=== PATIENT | male | born 1970 | race Caucasian/White ===

== ENCOUNTER 2024-05-01 14:30 | Emergency (ER) | payer SELFPAY ==
[2024-05-01 14:30] VITALS: BP 112/69; PULSE 113; RESP 16; TEMP 36.8; O2SAT 92; BMI 29.2
--- NOTE | 2024-05-01 14:36 | CTR_ITS ---
PROCEDURE INFORMATION: Exam: CT Abdomen And Pelvis With Contrast Exam date and time: 05/01/2024 3:38 PM Age: 54 years old Clinical indication: Abdominal pain; Additional info: Abd pain TECHNIQUE: Imaging protocol: Computed tomography of the abdomen and pelvis with contrast. Radiation optimization: All CT scans at this facility use at least one of these dose optimization techniques: automated exposure control; mA and/or kV adjustment per patient size (includes targeted exams where dose is matched to clinical indication); or iterative reconstruction. Contrast material: OMNI 350; Contrast volume: 100 ml; Contrast route: INTRAVENOUS (IV); COMPARISON: No relevant prior studies available. RADIATION DOSE METRICS: Total DLP (mGy-cm): 1041 FINDINGS: Tubes, catheters and devices: Spontaneous splenorenal shunt. Lungs: Left lower lobe calcified pulmonary parenchymal granulomas. Bilateral lower lobe and lingular pulmonary partial atelectasis. Pleural spaces: Moderately large dependent left pleural effusion. Liver: There is a nodular contour to the liver and hypertrophy of the left lobe lateral segment and caudate lobe, consistent with hepatic cirrhosis. No mass. Gallbladder and biliary ducts: The gallbladder transverse lumen measures 4.7 cm. Dependent low-attenuation numerous small gallstones (series 3, image 42), no wall thickening. Pancreas: Normal. No ductal dilation. Spleen: Normal. No splenomegaly. Adrenal glands: Normal. No mass. Kidneys and ureters: Right renal 5.7 mm benign cyst. Stomach and bowel: Diffuse mild colonic wall thickening. Appendix: No evidence of appendicitis. Intraperitoneal space: Large volume abdominal and pelvic ascites. No pneumoperitoneum. Omental and mesenteric adipose edema consistent with venous congestion. Vasculature: Distal paraesophageal varices, largest measuring 6.4 mm. Lymph nodes: Left hilar granulomatous sofi calcifications are present. Urinary bladder: The urinary bladder is partially decompressed and somewhat difficult to assess. Reproductive: The prostate gland demonstrates left central parenchymal calcification. Bones/joints: T11-L1 fusion with a left lateral plate and T12 vertebral body replacement. Anterior bridging left sacroiliac joint marginal osteophytes. Soft tissues: Small right inguinal hernia containing only peritoneal fluid. CT/CT abdomen pelvis w con* [id number] IMPRESSION: 1. Large volume abdominal and pelvic ascites. 2. Hepatic cirrhosis with evidence of portal venous hypertension. 3. Spontaneous splenorenal shunt. 4. Cholelithiasis and gallbladder luminal distension. Clinical correlation with the patient's specific symptomatology is recommended. 5. Diffuse mild colonic wall thickening. The finding is consistent with mild nonspecific colitis. Clinical correlation with the patient's specific symptomatology is recommended. Consider hepatic enteropathy. 6. Right renal small benign cyst. No follow-up imaging is recommended. 7. Chronic calcific prostatitis. 8. Moderately large dependent left pleural effusion. COMMENTS: Consistent with the [employer]'s Incidental Findings Committee white paper (J Am Soto Radiol 2018): Any incidental renal lesion less than 1 cm or classified as too small to characterize, or any incidental cystic renal lesion characterized as simple-appearing, is likely benign. No follow-up imaging is recommended for these lesions per consensus recommendations based on imaging criteria.
--- NOTE | 2024-05-01 14:44 | ED_ITS ---
HPI - Abdominal Pain 2 General: Chief Complaint: Abdominal Pain Stated Complaint: abdominal pain Time Seen by Provider: 05/01/24 14:32 Source: patient Mode of arrival: ambulatory Limitations: no limitations History of Present Illness: 54-year-old male has a history of cirrho sis states he is admitted to [place] recently he has a history alcoholism states he has been having some increased abdominal pain. States pain is diffuse in nature denies any vomiting denies any diarrhea he denies any fevers patient is never been seen here at this facility in the past. He is quite jaundiced here Associated Symptoms: Denies chills, diarrhea, fever(s), nausea and vomiting Related Data Previous Rx's Medication Instructions Recorded hydrocodone 5 mg-acetaminophen 325 1 tab PO Q6H PRN pain #14 tabs 05/01/24 mg tablet ondansetron 4 mg disintegrating 4 mg PO Q6H PRN nausea and 05/01/24 tablet vomiting #14 tabs Allergies Allergy/AdvReac Type Severity Reaction Status Date / Time meperidine [From Demerol] Allergy ALGY-Anaphy Verified 05/01/24 14:36 laxis Review of Systems 2 Const: Denies: fever(s), chills, body aches or change in appetite ENMT: Denies: throat pain or dental pain Card: Denies: chest pain Resp: Denies: dyspnea GI: Reports: abdominal pain; Denies: nausea, vomiting or diarrhea Musc: Denies: neck pain or back pain Skin/Breast: Denies: rash Neuro: Denies: headache(s) Physical Exam 2 Const: COMMON NORMALS: patient oriented x3 HENMT: COMMON NORMALS: normocephalic and atraumatic HEAD & SCALP: n ormocephalic and atraumatic Eye: COMMON NORMALS: Equal, round and reactive pupils present and EOMs intact bilaterally PUPIL: Yes Equal, round and reactive pupils present Neck/C-Spine: COMMON NORMALS: full ROM and supple Chest: COMMONS NORMALS: normal inspection of the chest and normal palpation of entire chest wall Resp: COMMON NORMALS: normal respiratory effort, No retractions, No use of accessory muscles and clear to auscultation bilaterally AUSCULTATION: clear to auscultation bilaterally Cardio: COMMON NORMALS: regular rate, regular rhythm and No murmurs present (Cardio) RATE: regular rate RHYTHM: regular rhythm GI: COMMON NORMALS: Soft to palpation and no masses PALPATION: Yes Soft to palpation OTHER: abdomen distended Extremity: COMMON NORMALS: normal to inspection and full ROM Neuro: COMMON NORMALS: patient oriented x3, moves all extremities and no focal motor deficits Psych: COMMON NORMALS: mental status grossly normal, Normal thought process present and cooperative THOUGHT PROCESS: Normal thought process present Skin: COMMON NORMALS: no rashes or lesions noted and no wounds NARRATIVE SKIN EXAM: jaundiced GENERAL SKIN EXAM: no rashes or lesions noted Course 2 Vital Signs: Vital signs: Vital Signs Temperature 98.3 F 05/01/24 14:30 Pulse Rate 109 H 05/01/24 18:50 Respiratory Rate 12 05/01/24 18:28 Blood Pressure 102/71 05/01/24 18:50 Pulse Oximetry 90 05/01/24 18:50 Oxygen Delivery Me thod Room Air 05/01/24 18:00 MDM - Abdominal Pain Medical Decision Making Patient presents here with abdominal pain he has severe cirrhosis of the liver likely end-stage liver disease I did get his records from [facility] where he had a MELD score of 32 I had a long discussion with patient and informed him of what they had informed him there as well the gravity of his disease and his likely 90-day mortality rate. I did offer him admission or transfer back to [facility] he states that he does not want to be in the hospital any longer he does not want any treatment he wants to just go home and be with his he understands the gravity of his disease with likely only months to live and had medical decision made capacity want to be discharged did discharge him home informed him should follow-up with a PCP if he changes his mind he is to return to the ER did speak to him about hospice as well and offered that he states he does not want to be on hospice at this time he just wants to go home and speak to his Medical Records I reviewed the patient's medical records. Lab Data I reviewed the patient's lab results. 05/01/24 15:15 05/01/24 15:15 Labs/Radiology: Radiology Impressions Abdomen/Pelvis CT 05/01/24 14:36 IMPRESSION: 1. Large volume abdominal and pelvic ascites. 2. Hepatic cirrhosis with evidence of portal venous hypertension. 3. Spontaneous splenorenal shunt. 4. Cholelithiasis and gallbladder luminal distension. Clinical correlation with the patient's specific symptomatology is recommended. 5. Diffuse mild colonic wall thickening. The finding is consistent with mild nonspecific colitis. Clinical correlation with the patient's specific symptomatology is recommended. Consider hepatic enteropathy. 6. Right renal small benign cyst. No follow-up imaging is recommended. 7. Chronic calcific prostatitis. 8. Moderately large dependent left pleural effusion. COMMENTS: Consistent with the [employer]'s Incidental Findings Committee white paper (J Am Soto Radiol 2018): Any incidental renal lesion less than 1 cm or classified as too small to characterize, or any incidental cystic renal lesion characterized as simple-appearing, is likely benign. No follow-up imaging is recommended for these lesions per consensus recommendations based on imaging criteria. Laboratory Results WBC 6.79 10^3/uL (3.29-11.43) 05/01/24 15:15 RBC 3.49 10^6/uL (3.85-5.65) L 05/01/24 15:15 Hgb 12.30 g/dL (11.27-16.99) 05/01/24 15:15 Hct 35.4 % (37-53) L 05/01/24 15:15 MCV 101.4 fl (82-101) H 05/01/24 15:15 MCH 35.2 pg (27-33) H 05/01/24 15:15 MCHC 34.7 g/dL (30-55) 05/01/24 15:15 RDW 17.3 % (12.1-15.1) H 05/01/24 15:15 Plt Count 106 10^3/cmm (157-399) L 05/01/24 15:15 MPV 13.0 fL (7.4-10.4) H 05/01/24 15:15 Neut % (Auto) 90.7 % 05/01/24 15:15 Lymph % (Auto) 5.2 % 05/01/24 15:15 Tate % (Auto) 3.1 % 05/01/24 15:15 Eos % (Auto) 0.1 % 05/01/24 15:15 Baso % (Auto) 0.3 % 05/01/24 15:15 Neut # (Auto) 6.16 10^3/uL (1.8-7.7) 05/01/24 15:15 Lymph # (Auto) 0.4 10^3/uL (0.8-4.8) L 05/01/24 15:15 Tate # (Auto) 0.2 10^3/uL (0.2-0.9) 05/01/24 15:15 Eos # (Auto) 0.0 10^3/uL (0.0-0.8) 05/01/24 15:15 Baso # (Auto) 0.0 10^3/uL (0.0-0.1) 05/01/24 15:15 Nucleated RBC % (auto) 0.3 % 05/01/24 15:15 Nucleated RBCs # 0.0 /100WBC 05/01/24 15:15 PT 23.10 SECONDS (12.1-14.9) H 05/01/24 15:15 INR 1.96 (0.8-1.2) H 05/01/24 15:15 Sodium 125 mmol/L (136-145) L 05/01/24 15:15 Potassium 4.1 mmol/L (3.5-5.1) 05/01/24 15:15 Chloride 88 mmol/L (98-107) L 05/01/24 15:15 Carbon Dioxide 23 mmol/L (22-29) 05/01/24 15:15 Anion Gap 18.1 (5-19) 05/01/24 15:15 BUN 18 mg/dL (6-20) 05/01/24 15:15 Creatinine 0.8 mg/dL (0.7-1.2) 05/01/24 15:15 GFR Calculation 100.4 mL/min (90-130) 05/01/24 15:15 Glucose 123 mg/dL (65-115) H 05/01/24 15:15 Calculated Osmolality 263 mOsm/kg (285-295) L 05/01/24 15:15 Calcium 7.7 mg/dL (8.5-10.5) L 05/01/24 15:15 Total Bilirubin 12.5 mg/dL (0.15-1.2) H* 05/01/24 15:15 AST 197 U/L (0-40) H 05/01/24 15:15 ALT 115 U/L (0-41) H 05/01/24 15:15 Alkaline Phosphatase 110 U/L (40-130) 05/01/24 15:15 Total Protein 7.3 g/dL (6.6-8.7) 05/01/24 15:15 Albumin 2.2 g/dL (3.5-5.2) L 05/01/24 15:15 Globulin 5.1 g/dL (1.3-4.6) H 05/01/24 15:15 Lipase 38 U/L (13-60) 05/01/24 15:15 Ethyl Alcohol < 10 mg/dL (0-10) 05/01/24 15:15 All radiology interpretation(s) finalized by discharge EKG Data EKG 1: I personally reviewed and interpreted this EKG as follows: EKG interpretation date: 05/01/24 EKG interpretation time: 14:28 Interpretation: sinus tach hr 113 qrs 97 qtc 427 Discharge Plan Discharge Patient Disposition: Home Clinical Impression: Abdominal pain, Cirrhosis Condition: Stable Prescriptions: New hydrocodone-acetaminophen 5-325 mg tablet 1 tab PO Q6H PRN (Reason: pain) Qty: 14 0RF ondansetron 4 mg tablet,disintegrating 4 mg PO Q6H PRN (Reason: nausea and vomiting) Qty: 14 0RF Discharge Orders: Discharge ED (Routine); Ordered 05/01/24 Ordered By: Alf Reeves Referrals: Beni Kidd MD [Primary Care Provider] - Discharge Diet: Advance as tolerated Discharge Activity: Resume usual activity Patient Instructions: Cirrhosis of the Liver (ED), Abdominal Pain (ED) Coding Level of Care Code ED Spinner [employer]draulic for Cjg Fredy
[2024-05-01] MEDS: ondansetron 2 mg/ML SDV 2 mL 4 MG IVP (15:18)
[2024-05-01] MEDS: HYDROmorphone 1 mg/mL INJ 1 mL IVP (15:18)
[2024-05-01 15:27] LABS: Basophils % 0.3 %; Eosinophils % 0.1 %; Hematocrit 35.4 % (37-53); Lymphocytes # 0.4 10^3/uL (0.8-4.8); Lymphocytes % 5.2 %; Mean Corpuscular HGB Conc 34.7 g/dL (30-55); Mean Corpuscular Hemoglobin 35.2 pg (27-33); Mean Corpuscular Volume 101.4 fl (82-101); Monocytes # 0.2 10^3/uL (0.2-0.9); Monocytes % 3.1 %; Neutrophils # 6.16 10^3/uL (1.8-7.7); Neutrophils % 90.7 %; Nucleated Red Blood Cells % 0.3 %; Platelet Count 106 10^3/cmm (157-399); Red Blood Count 3.49 10^6/uL (3.85-5.65); Red Cell Distribution Width 17.3 % (12.1-15.1); White Blood Count 6.79 10^3/uL (3.29-11.43)
--- NOTE | 2024-05-01 15:29 | ECG_ITS ---
[facility] Test Date: 2024-05-01 Pat Name: Donte Saini Department: Room: Gender: Male Police Chief Deputy: : 1970 Requested By: Alf Reeves Order Number: [id number] Shanna MD: Lino Ayon M.D. Measurements Intervals [place] Rate: 113 P: 26 HI: 146 QRS: -21 QRSD: 97 T: 34 QT: 360 QTc: 494 Interpretive Statements SINUS TACHYCARDIA POSSIBLE ANTERIOR MYOCARDIAL INFARCTION , PROBABLY OLD [30 ms Q WAVE IN V3/V4, OR R < 0.2 mV IN V4] Compared to ECG 03/14/2019 16:08:32 Myocardial infarct finding now present Sinus rhythm no longer present Left-axis deviation no longer present Intraventricular conduction delay no longer present Electronically Signed On 05-01-2024 16:23:46 CDT by Lino Ayon M.D. [id number] f
[2024-05-01 15:38] LABS: INR 1.96 (0.8-1.2)
[2024-05-01] MEDS: iohexol 350 mg/mL 500 mL Btl (per mL) IV (15:41)
[2024-05-01 15:42] LABS: Alanine Aminotransferase 115 U/L (0-41); Albumin Level 2.2 g/dL (3.5-5.2); Alkaline Phosphatase 110 U/L (40-130); Anion Gap 18.1 (5-19); Aspartate Amino Transferase 197 U/L (0-40); Blood Urea Nitrogen 18 mg/dL (6-20); Calcium 7.7 mg/dL (8.5-10.5); Carbon Dioxide 23 mmol/L (22-29); Chloride 88 mmol/L (98-107); Creatinine Clr Calc Pharmacy 108.5946; Globulin 5.1 g/dL (1.3-4.6); Glomerular Filtration Rate 100.4 mL/min (90-130); Glucose 123 mg/dL (65-115); Lipase 38 U/L (13-60); Osmolality Calculated 263 mOsm/kg (285-295); Potassium 4.1 mmol/L (3.5-5.1); Sodium 125 mmol/L (136-145); Total Protein 7.3 g/dL (6.6-8.7)
[2024-05-01 15:44] LABS: Alcohol Level < 10 mg/dL (0-10); Total Bilirubin 12.5 mg/dL (0.15-1.2)
[2024-05-01 16:25] VITALS: BP 112/69; PULSE 113; RESP 18; O2SAT 92
[2024-05-01 17:01] VITALS: BP 92/75; PULSE 112; RESP 17; O2SAT 83
[2024-05-01 18:00] VITALS: BP 92/60; PULSE 89; RESP 18; O2SAT 89
[2024-05-01 18:28] VITALS: BP 86/67; PULSE 110; RESP 12
[2024-05-01 18:50] VITALS: BP 102/71; PULSE 109; O2SAT 90
== END 2024-05-01 18:53 | disposition home or self-care (01) ==
PROVIDERS: Emergency Provider Emergency Medicine; PCP Family Medicine
DX: K74.60 Unspecified cirrhosis of liver (principal)
CPT/HCPCS: 74177; 80053; 80307; 83690; 85025; 85610; 93005; 96374; 96375; 99285; J1170; J2405

== ENCOUNTER 2024-05-03 14:31 | Inpatient (IN) | payer SELFPAY ==
[2024-05-03] VITALS (20 sets, daily range): BP systolic 90–116; BP diastolic 44–76; PULSE 94–113; RESP 13–22; TEMP 36.8; O2SAT 90–97; BMI 27.3; BMI 24.1
--- NOTE | 2024-05-03 14:44 | ED_ITS ---
HPI - Abdominal Pain 2 General: Chief Complaint: Abdominal Pain Stated Complaint: abd pain, n, liver failure Time Seen by Provider: 05/03/24 14:44 History of Present Illness: 54-year-old male with end-stage liver di dada due to alcoholic liver cirrhosis. He was seen earlier this week and a MELD score of 32 after discussion with physician at that time they opted to go home he did not want to be on hospice but did not want to pursue any other treatment. He is still drinking. Patient is unable to even reposition himself in bed he is extremely jaundiced. He was seen 2 days ago those notes were reviewed. No course of discussion with him was able to discern that his is 29 years old with him and age 83 has pretty significant severe dementia and he has been the main caregiver he is unable to perform any of those duties given his health at this point. He was previously seen at [facility] in [place] had paracentesis done. At this point he does not really want to go back to [place] he was offered that 2 days ago when he was here he is open to hospice now. Associated Symptoms: Reports nausea; Denies chills, dysuria and fever(s) Related Data Previous Rx's Medication Instructions Recorded hydrocodone 5 mg-acetaminophen 325 1 tab PO Q6H PRN pain #14 tabs 05/01/24 mg tablet ondansetron 4 mg disintegrating 4 mg PO Q6H PRN nausea and 05/01/24 tablet vomiting #14 tabs Allergies Allergy/AdvReac Type Severity Reaction Status Date / Time meperidine [From Demerol] Allergy ALGY-Anaphy Verified 05/01/24 14:36 laxis Review of Systems 2 Const: Denies: fever(s) or chills Card: Denies: chest pain Resp: Denies: dyspnea GI: Reports: abdominal pain and nausea : Denies: dysuria, urinary frequency or urinary urgency Musc: Denies: neck pain or back pain Skin/Breast: Denies: rash PFSH ED 2 PFSH: Medical History Cirrhosis Physical Exam 2 Const: GENERAL APPEARANCE: cooperative ORIENTATION/CONSCIOUSNESS: Yes awake, Yes oriented to person, Yes oriented to place and Yes oriented to time HENMT: COMMON NORMALS: normocephalic, atraumatic and hearing grossly normal bilaterally HEAD & SCALP: normocephalic and atraumatic Resp: COMMON NORMALS: normal respiratory effort, No retractions, No use of accessory muscles and clear to auscultation bilaterally AUSCULTATION: clear to auscultation bilaterally Cardio: COMMON NORMALS: regular rate, regular rhythm and No murmurs present (Cardio) RATE: regular rate RHYTHM: regular rhythm GI: COMMON NORMALS: No hepatosplenomegaly present INSPECTION: Yes abdominal distension and Yes Fluid wave present AUSCULTATION: Yes normoactive bowel sounds PALPATION: Yes Tenderness to palpation present (GI), No Guarding due to palpation present (GI), Yes No hepatosplenomegaly present and Yes Hepatomegaly present PERCUSSION: Fluid wave present Extremity: COMMON NORMALS: normal to inspection, capillary refill normal, no clubbing, cyanosis or edema, no calf tenderness and no pedal edema Neuro: SENSORIUM/ORIENTATION: Yes oriented to person, Yes oriented to place and Yes oriented to time Skin: COMMON NORMALS: no rashes or lesions noted GENERAL SKIN EXAM: no rashes or lesions noted Course 2 Vital Signs: Vital signs: Vital Signs Temperature 98.2 F 05/05/24 03:19 Pulse Rate 0 L 05/05/24 12:00 Respiratory Rate 18 05/05/24 12:00 Blood Pressure 133/94 05/05/24 12:00 Pulse Oximetry 93 05/05/24 08:21 Oxygen Delivery Me thod Nasal Cannula 05/05/24 08:21 Oxygen Flow Rate 2 05/05/24 08:21 MDM - Abdominal Pain Medical Decision Making Patient has end-stage liver failure his MELD score is greater than 30. At this point he does not wish to pursue any treatment. He is preferring instead to be on hospice for having some logistical issues because he does not have insurance we will put him on observation for now to see if we can pursue other options. His lives at home is significantly older than him and he is the main caregiver hotline report was made to make sure that she was cared for tonight. Lab Data 05/05/24 03:14 05/05/24 03:14 Labs/Radiology: Radiology Impressions Paracentesis Ultrasound 05/03/24 15:14 IMPRESSION: Uncomplicated ultrasound-guided paracentesis. Removal of 7500 cc Chest X-Ray 05/04/24 12:03 IMPRESSION: 1. Right-sided PICC line in satisfactory position. 2. Atelectasis and/or infiltrate in the LEFT lower lobe and small LEFT basal pleural effusion. Laboratory Results WBC 14.44 10^3/uL (3.29-11.43) H 05/03/24 18:45 RBC 3.05 10^6/uL (3.85-5.65) L 05/03/24 18:45 Hgb 10.90 g/dL (11.27-16.99) L 05/03/24 18:45 Hct 31.4 % (37-53) L 05/03/24 18:45 MCV 103.0 fl (82-101) H 05/03/24 18:45 MCH 35.7 pg (27-33) H 05/03/24 18:45 MCHC 34.7 g/dL (30-55) 05/03/24 18:45 RDW 17.8 % (12.1-15.1) H 05/03/24 18:45 Plt Count 82 10^3/cmm (157-399) L 05/03/24 18:45 MPV 12.6 fL (7.4-10.4) H 05/03/24 18:45 Neut % (Auto) 88.0 % 05/03/24 18:45 Lymph % (Auto) 4.3 % 05/03/24 18:45 Nicholas % (Auto) 6.2 % 05/03/24 18:45 Eos % (Auto) 0.0 % 05/03/24 18:45 Baso % (Auto) 0.2 % 05/03/24 18:45 Neut # (Auto) 12.71 10^3/uL (1.8-7.7) H 05/03/24 18:45 Lymph # (Auto) 0.6 10^3/uL (0.8-4.8) L 05/03/24 18:45 Nicholas # (Auto) 0.9 10^3/uL (0.2-0.9) 05/03/24 18:45 Eos # (Auto) 0.0 10^3/uL (0.0-0.8) 05/03/24 18:45 Baso # (Auto) 0.0 10^3/uL (0.0-0.1) 05/03/24 18:45 Nucleated RBC % (auto) 0 % 05/03/24 18:45 Nucleated RBCs # 0.0 /100WBC 05/03/24 18:45 PT 25.20 SECONDS (12.1-14.9) H 05/03/24 18:45 INR 2.19 (0.8-1.2) H 05/03/24 18:45 D-Dimer 12.85 ug/mLFEU (0-0.59) H 05/03/24 18:45 Sodium 119 mmol/L (136-145) L* 05/03/24 18:45 Potassium 6.1 mmol/L (3.5-5.1) H 05/03/24 18:45 Chloride 85 mmol/L (98-107) L 05/03/24 18:45 Carbon Dioxide 20 mmol/L (22-29) L 05/03/24 18:45 Anion Gap 20.1 (5-19) H 05/03/24 18:45 BUN 42 mg/dL (6-20) H 05/03/24 18:45 Creatinine 2.3 mg/dL (0.7-1.2) H 05/03/24 18:45 GFR Calculation 29.7 mL/min (90-130) L 05/03/24 18:45 Glucose 117 mg/dL (65-115) H 05/03/24 18:45 Calculated Osmolality 260 mOsm/kg (285-295) L 05/03/24 18:45 Lactic Acid 2.4 mmol/L (0.5-2.2) H 05/03/24 18:45 Calcium 7.2 mg/dL (8.5-10.5) L 05/03/24 18:45 Iron 28 ug/dL (59-158) L 05/03/24 18:45 TIBC 100 mcg/dl 05/03/24 18:45 % Saturation 28.0 % (20-50) 05/03/24 18:45 Unsat Iron Binding 72 ug/dL (112-347) L 05/03/24 18:45 Total Bilirubin 10.0 mg/dL (0.15-1.2) H* 05/03/24 18:45 AST 147 U/L (0-40) H 05/03/24 18:45 ALT 98 U/L (0-41) H 05/03/24 18:45 Alkaline Phosphatase 98 U/L (40-130) 05/03/24 18:45 Ammonia 84 umol/L (16-60) H 05/03/24 18:45 Total Protein 7.0 g/dL (6.6-8.7) 05/03/24 18:45 Albumin 1.9 g/dL (3.5-5.2) L 05/03/24 18:45 Globulin 5.1 g/dL (1.3-4.6) H 05/03/24 18:45 Lipase 32 U/L (13-60) 05/03/24 18:45 Vitamin B12 > 2000 pg/mL (232-1245) H 05/03/24 18:45 Urine Opiates Screen Negative ng/mL (Negative) 05/03/24 15:00 Ur Barbiturates Screen Negative ng/mL (Negative) 05/03/24 15:00 Ur Phencyclidine Scrn Negative ng/mL (Negative) 05/03/24 15:00 Ur Amphetamines Screen Negative ng/mL (Negative) 05/03/24 15:00 U Benzodiazepines Scrn Negative ng/mL (Negative) 05/03/24 15:00 Urine Cocaine Screen Negative ng/mL (Negative) 05/03/24 15:00 U Marijuana (THC) Screen Negative ng/mL (Negative) 05/03/24 15:00 Ethyl Alcohol < 10 mg/dL (0-10) 05/03/24 18:45 Coronavirus (PCR) Negative (Negative) 05/03/24 15:40 Influenza A (PCR) Negative (Negative) 05/03/24 15:40 Influenza Type B (PCR) Negative (Negative) 05/03/24 15:40 RSV (PCR) Negative (Negative) 05/03/24 15:40 All radiology interpretation(s) finalized by discharge Discharge Plan Discharge Patient Disposition: Admitted As Inpatient Admit Provider: Fortino Moscoso Clinical Impression: Cirrhosis, Hepatorenal syndrome, Hyperkalemia, Acute kidney failure, Ascites, Hepatic encephalopathy, Hyponatremia Condition: Stable Coding Level of Care Code ED Director Volunteer Services for Jaime Daniel
--- NOTE | 2024-05-03 14:45 | ECG_ITS ---
[facility] Test Date: 2024-05-03 Pat Name: Donte Saini Department: Room: Gender: Male Membership Solicitor: : 1970 Requested By: Mc Pollack Order Number: [id number] Shanna MD: Lino Ayon M.D. Measurements Intervals [place] Rate: 108 P: 19 TN: 160 QRS: -33 QRSD: 105 T: 13 QT: 339 QTc: 456 Interpretive Statements SINUS TACHYCARDIA LEFT AXIS DEVIATION [QRS AXIS < -30] POSSIBLE ANTERIOR MYOCARDIAL INFARCTION , PROBABLY OLD [30 ms Q WAVE IN V3/V4, OR R < 0.2 mV IN V4] Compared to ECG 05/01/2024 14:28:51 Left-axis deviation now present Myocardial infarct finding still present Electronically Signed On 05-03-2024 18:14:00 CDT by Lino Ayon M.D. [id number]
--- NOTE | 2024-05-03 14:45 | XR_ITS ---
WS: [id number] Exam: XR chest 1V portable [id number] Date/Time of Exam: 05/03/2024 2:51 PM Reason For Exam: dyspnea/cough Comparison 07/29/2017. The lungs are clear. Heart size is normal. No pleural effusions. Low lung volumes secondary to limite d inspiration. Bony structures are intact. Hardware seen in the upper L-spine. The mediastinum is nor mal in contour. XR/XR chest 1V portable [id number] IMPRESSION: 1. No acute process. 2. Low lung volumes secondary to limited inspiration.
--- NOTE | 2024-05-03 15:14 | US_ITS ---
WS: [id number] ULTRASOUND-GUIDED PARACENTESIS CLINICAL INFORMATION: cirrhosis, therapuetic COMPARISON: None. Procedure Informed consent: The risks, benefits, and alternatives of the procedure were discussed with the ramsey ent. Verbal and written consent was obtained. Timeout: A timeout was performed to confirm the correct patient, procedure, and site. Preparation: A suitable skin site was identified. The patient was prepped and draped in usual sterile fashion. Lidocaine 1% was used for local anesthesia. Catheter: 4 [place] One-step Routezillaeh catheter. Side: LEFT lower quadrant. Fluid Volume: 7500 ml Color: Clear yellow DISPOSITION: Discarded safely. Complications: None. US/US paracentesis abd w [id number] IMPRESSION: Uncomplicated ultrasound-guided paracentesis. Removal of 7500 cc
[2024-05-03] MEDS: metoclopramide 5 mg/mL SDV 2 mL 10 MG IVP (15:48)
[2024-05-03] MEDS: morphine 4 mg/mL SDV 1 mL IVP (15:49)
[2024-05-03 16:32] LABS: Covid PCR NEGATIVE (Negative); Influenza A NEGATIVE (Negative); Influenza B NEGATIVE (Negative); Respiratory Syncytial Virus Ce NEGATIVE (Negative)
--- NOTE | 2024-05-03 17:07 | PC.NURSE ---
pt had 7,500 out with paracentisis.
[2024-05-03 18:58] LABS: Basophils % 0.2 %; Hematocrit 31.4 % (37-53); Lymphocytes # 0.6 10^3/uL (0.8-4.8); Lymphocytes % 4.3 %; Mean Corpuscular HGB Conc 34.7 g/dL (30-55); Mean Corpuscular Hemoglobin 35.7 pg (27-33); Mean Platelet Volume 12.6 fL (7.4-10.4); Monocytes # 0.9 10^3/uL (0.2-0.9); Monocytes % 6.2 %; Neutrophils # 12.71 10^3/uL (1.8-7.7); Nucleated Red Blood Cells % 0 %; Platelet Count 82 10^3/cmm (157-399); Red Blood Count 3.05 10^6/uL (3.85-5.65); Red Cell Distribution Width 17.8 % (12.1-15.1); White Blood Count 14.44 10^3/uL (3.29-11.43)
[2024-05-03 19:18] LABS: INR 2.19 (0.8-1.2)
[2024-05-03 19:22] LABS: Albumin Level 1.9 g/dL (3.5-5.2); Alkaline Phosphatase 98 U/L (40-130); Blood Urea Nitrogen 42 mg/dL (6-20); Calcium 7.2 mg/dL (8.5-10.5); Carbon Dioxide 20 mmol/L (22-29); Chloride 85 mmol/L (98-107); Creatinine Clr Calc Pharmacy 36.6545; Globulin 5.1 g/dL (1.3-4.6); Glomerular Filtration Rate 29.7 mL/min (90-130); Glucose 117 mg/dL (65-115); Lactic Sepsis W/Reflex 2.4 mmol/L (0.5-2.2); Lipase 32 U/L (13-60); Osmolality Calculated 260 mOsm/kg (285-295)
[2024-05-03 19:24] LABS: Iron 28 ug/dL (59-158)
[2024-05-03 19:29] LABS: Alanine Aminotransferase 98 U/L (0-41); Alcohol Level < 10 mg/dL (0-10); Anion Gap 20.1 (5-19); Aspartate Amino Transferase 147 U/L (0-40); Potassium 6.1 mmol/L (3.5-5.1)
[2024-05-03 19:34] LABS: Sodium 119 mmol/L (136-145)
[2024-05-03 19:35] LABS: D Dimer 12.85 ug/mLFEU (0-0.59); Total Iron Binding Capacity 100 mcg/dl; Unsaturated Iron Binding 72 ug/dL (112-347)
[2024-05-03 19:38] LABS: Ammonia 84 umol/L (16-60)
[2024-05-03 20:03] LABS: Vitamin B12 > 2000 pg/mL (232-1245)
[2024-05-03 20:09] LABS: Amphetamines Screen Urine Negative (Negative); Barbiturates Screen Urine Negative (Negative); Benzodiazepines Screen Urine Negative (Negative); Cocaine Screen Urine Negative (Negative); Opiate Screen Urine Negative (Negative); PCP Screen Urine Negative (Negative); THC Screen Urine Negative (Negative)
[2024-05-03 20:42] LABS: Reflex Lactate Order REFLEX LACTIC ORDERD
[2024-05-03] MEDS: albumin 25 G/100 ML BAG 60 G IV (20:43)
[2024-05-03] MEDS: octreotide 500 MCG in sodium chloride 0.9% (100 ml) 100 ML 10.1 MCG IV (20:48)
[2024-05-03 20:49] LABS: Reflex FDPQ test REFLEX FDP QUEST TES
--- NOTE | 2024-05-03 20:52 | PC.NURSE ---
Dr. Moscoso called, aware of lab crit of Na+ Bili, and K+. Dr. Moscoso states to hold on PICC line at this time, estb another IV, pt has bilat IVs one to left and one to right.
[2024-05-03 21:07] LABS: INR 2.42 (0.8-1.2)
[2024-05-03 21:08] LABS: Partial Thromboplastin Time 44.8 SECONDS (23.9-36.7)
[2024-05-03 21:09] LABS: Fibrinogen 260 mg/dL (174-498)
[2024-05-03 21:10] LABS: Anion Gap 16.3 (5-19); Blood Urea Nitrogen 43 mg/dL (6-20); Calcium 6.9 mg/dL (8.5-10.5); Carbon Dioxide 24 mmol/L (22-29); Chloride 84 mmol/L (98-107); Creatinine Clr Calc Pharmacy 33.7221; Glomerular Filtration Rate 26.9 mL/min (90-130); Glucose 178 mg/dL (65-115); Lactic Acid level (Lactate) 2.8 mmol/L (0.5-2.2); Osmolality Calculated 263 mOsm/kg (285-295); Potassium 5.3 mmol/L (3.5-5.1)
[2024-05-03 21:17] LABS: Sodium 119 mmol/L (136-145)
[2024-05-03 21:18] LABS: D Dimer 12.65 ug/mLFEU (0-0.59)
[2024-05-03] MEDS: insulin regular-human 100 units/1 mL 10 UNIT IVP (21:25)
[2024-05-03] MEDS: calcium gluconate 0.9% NaCL 1 GM/50 ML PREMIX IV (21:46)
--- NOTE | 2024-05-03 21:56 | PC.NURSE ---
called to give report to ICU, was told ICU nurse taking pt would call back. 5.
--- NOTE | 2024-05-03 21:57 | PC.NURSE ---
sample of paracentisis fluid collected and taken to lab.
[2024-05-03] MEDS: piperacillin-tazobactam 3.375 GM in sodium chloride 0.9% (plus) 50 ML IV (22:19)
[2024-05-03] MEDS: pantoprazole 40 mg SDV IVP (23:17)
[2024-05-03] MEDS: midodrine 5 mg TABLET PO (23:18)
[2024-05-03 23:36] LABS: Thyroid Stimulating Hormone 1.08 uIU/mL (0.27-4.20)
[2024-05-03 23:39] LABS: Bilirubin Urine 3+ (Negative); Blood Urine Negative (Negative); Glucose Urine UA Negative (Normal); Ketones Urine Negative (Negative); Leukocyte Esterase Urine 2+ (Negative); Protein Urine 1+ (Negative); Urine Appearance Cloudy (CLEAR)
[2024-05-03 23:41] LABS: Add Urine Microscopic? YES
[2024-05-04] VITALS (29 sets, daily range): BP systolic 81–123; BP diastolic 47–83; PULSE 89–100; RESP 12–16; TEMP 35.7–36.8; O2SAT 89–97; BMI 24.1
[2024-05-04 00:01] LABS: Specific Gravity, Urine 1.047 (1.005-1.030)
[2024-05-04 00:10] LABS: Nitrate Urine Positive (Negative)
[2024-05-04 00:11] LABS: Urine Color Other (Yellow)
[2024-05-04 00:12] LABS: Bacteria Urine 3+ /hpf; Calcium Oxalate Crystals Urine RARE /hpf; Hyaline Casts Urine 0-4 /lpf; RBC Urine 0-4 /hpf (0-2); Squamous Epithelial Cell Urine 0-4 /hpf (0-5); UA Manual Slide Review YES; WBC Urine 0-4 /hpf (0-5)
[2024-05-04 00:13] LABS: Coarse Granular Casts Urine 0-4 /lpf
[2024-05-04 00:14] LABS: Add Urine Culture? Yes
[2024-05-04 01:05] LABS: MRSA PCR OZH (swab) NOT DETECTED (Negative)
--- NOTE | 2024-05-04 01:46 | P.HP_ITS ---
Providers/Chief Complaint 2 Admitting Physician: Fortino Moscoso MD Primary Care Provider: Beni Kidd MD Chief Complaint: abd pain, n, liver failure History of Present Illness Donte Saini is a 54 year old male with recent diagnosis of liver cirrhosis who was recently in the emergency room on May 01, 2024 with chief complaints of abdominal pain. His records from [facility] were reviewed at that time, MELD score was 32, at that point patient had stated he does not want any treatment and wished to go home to take care of his elderly . He returns to the emergency room today with chief complaints of worsening abdominal pain, generalized weakness which is worsening and overall feeling unwell. He is significantly jaundiced. Shows worsening in his liver and kidney function with multiple electrolyte abnormalities. He underwent ultrasound-guided paracentesis today with removal of 7.5 L fluid. In the emergency room he indicated that he would like to be transition to hospice. At the time of my assessment, patient states that he is extremely worried about his finances and his elderly . He would like to take some more time to think about his choices with regards to hospice, CODE STATUS, half-way etc. Review of Systems 2 General: Reports: 10 or more systems reviewed and unremarkable except in HPI and below Const: Denies: fever(s), chills or body aches Eyes: Denies: change in vision, blurry vision or photophobia ENMT: Reports: hoarseness; Denies: throat pain, enlarged tonsils, odynophagia or nasal congestion Card: Denies: chest pain, palpitations, irregular heart rhythm, edema, swelling of feet/ankles, lightheadedness, pre-syncope, dyspnea on exertion or orthopnea Resp: Denies: dyspnea, productive cough, non-productive cough, wheezing, stridor, pain on inspiration, change in phlegm color, hemoptysis or chest congestion GI: Denies: abdominal pain, nausea, vomiting, hematemesis, coffee ground emesis, dysphagia, heartburn, diarrhea, constipation, GI cramping, change in stool character, hematochezia or melena : Denies: flank pain, dysuria, urinary frequency, urinary urgency, urinary hesitancy or hematuria Musc: Denies: neck pain, back pain, extremity pain, joint swelling, joint warmth or deformity Neuro: Denies: headache(s), numbness in extremities, weakness in extremities, sensory changes, difficulty walking, frequent falls, dizziness, vertigo, behavioral changes, Slurred speech present or seizure-like activity Psych: Denies: anxiety, depression, suicidal ideation or homicidal ideation Endo: Denies: polyuria, polydipsia, tired all the time, cold intolerance or hot flashes Samuel/Lymph: Denies: easy bruising or easy bleeding Medications/Allergies Home Medications Medication Instructions Recorded Confirmed Last Taken Type hydrocodone 5 mg-acetaminophen 325 1 tab PO Q6H PRN pain #14 tabs 05/01/24 Unknown Rx mg tablet ondansetron 4 mg disintegrating 4 mg PO Q6H PRN nausea and 05/01/24 Unknown Rx tablet vomiting #14 tabs Allergies Allergy/AdvReac Type Severity Reaction Status Date / Time meperidine [From Demerol] Allergy ALGY-Anaphy Verified 05/01/24 14:36 laxis PFSH Acute 2 PFSH: Medical History Cirrhosis Vitals/I&O/Wt Last Vital Signs Temp 98.2 F 05/03/24 23:29 Pulse 99 05/04/24 00:30 Resp 12 05/04/24 00:30 BP 119/69 05/04/24 00:30 Pulse Ox 97 05/04/24 01:21 O2 Del Method Nasal Cannula 05/04/24 01:21 O2 Flow Rate 2 05/04/24 01:21 05/03/24 05/03/24 05/04/24 14:59 22:59 06:59 Intake Total 150 / 150 Balance 150 / 150 Weight last 48 hrs Weight 80.83 kg Weight 79.379 kg Physical Exam 2 Narrative: General: No acute distress, AO x3 HEENT: PERRLA, pupils bilaterally equal and reactive, icterus+ Chest: Normal vesicular breath sounds CVS: S1-S2 regular, no murmurs, no tachycardia, no gallops, no rubs Abdomen: Soft, distended, bowel sounds present Neuro: No focal deficits, no facial deformity, AO x3, power 5/5 in all limbs Data 05/03/24 18:45 05/03/24 20:35 Micro: Microbiology 05/03/24 20:35 Blood Culture - Preliminary Blood SPECIMEN COLLECTED 05/03/24 18:45 Blood Culture - Preliminary Blood SPECIMEN COLLECTED Other data: Date of Service: 05/01/24 Procedure(s): CT abdomen pelvis w con* [id number] CT/CT abdomen pelvis w con* [id number] IMPRESSION: 1. Large volume abdominal and pelvic ascites. 2. Hepatic cirrhosis with evidence of portal venous hypertension. 3. Spontaneous splenorenal shunt. 4. Cholelithiasis and gallbladder luminal distension. Clinical correlation with the patient's specific symptomatology is recommended. 5. Diffuse mild colonic wall thickening. The finding is consistent with mild nonspecific colitis. Clinical correlation with the patient's specific symptomatology is recommended. Consider hepatic enteropathy. 6. Right renal small benign cyst. No follow-up imaging is recommended. 7. Chronic calcific prostatitis. 8. Moderately large dependent left pleural effusion. XR/XR chest 1V portable [id number] IMPRESSION: 1. No acute process. 2. Low lung volumes secondary to limited inspiration. A&P Assessment and plan (1) Cirrhosis: Patient with recently diagnosed alcohol-related liver cirrhosis. With T. bili of 10, creatinine of 2.5, INR 2.4, sodium 119, MELD Na score of 36 correlating with 52% mortality. Signs of decompensated cirrhosis currently include portal hypertension, ascites, anasarca. (2) Hepatorenal syndrome: Creatinine worsened from 0.8 on May 01 to 2.5 currently. Likely related to hepatorenal syndrome Start octreotide infusion Midodrine 5 mg 3 times daily Albumin infusion every 8 hours scheduled Closely monitor urine output and kidney function with above interventions. (3) Hyperkalemia: Upon arrival potassium at 6.1 Likely related to acute kidney failure Status post receiving insulin dextrose nebulization. Repeat potassium at 5.3 Repeat with a.m. labs (4) Acute kidney failure: Likely hepatorenal syndrome (5) Ascites: From decompensated cirrhosis. Status post paracentesis in the emergency room today. Added acetic fluid cell count, fluid analysis, protein albumin cytology, Gram stain and culture to fluid already obtained this afternoon. Will await results. (6) Portal hypertension: Related to cirrhosis (7) Hepatic encephalopathy: Patient is slightly disoriented. He did not realize he was in [place] until brought to his attention. Does not recall the exact date. Has asked me for my name repeatedly. May be related to hepatic encephalopathy. Ammonia at 84. Start lactulose every 6 hours and titrate to 2-3 bowel movements per day Start rifaximin 550 mg twice daily. (8) Coagulopathy: Plan DVT prophylaxis: SCDs only. High risk of bleeding given deranged INR 2.4 He would like to be full code for now. States that he has been having a lot of financial issues and has a lot of thinking to do with regards to his own and his elderly 's disposition. He he would like to take some time to think about his CODE STATUS and overall goals of care. Attestations 2 Medical Necessity Statement*: Greater than 2 midnight admission is anticipated Coding Level of Care Code Acute Code for Chg Fwd High MDM includes number and complexity of problems actively addressed during encounter, amount and/or complexity of data reviewed/ordered and described risk of complication, morbidity or mortality of management as documented Diagnoses Cirrhosis K74.60 Hepatorenal syndrome K76.7 Hyperkalemia E87.5 Acute kidney failure N17.9 Ascites R18.8 Portal hypertension K76.6 Hepatic encephalopathy K76.82 Coagulopathy D68.9
[2024-05-04] MEDS: albumin 25 G/100 ML BAG 60 G IV ×3 (03:26→19:20)
[2024-05-04] MEDS: piperacillin-tazobactam 3.375 GM in sodium chloride 0.9% (plus) 50 ML IV ×3 (03:26→19:20)
[2024-05-04] MEDS: lactulose oral liq 20 gm/30 mL UDC PO (04:40)
[2024-05-04 05:16] LABS: Basophils % 0.1 %; Eosinophils % 0.2 %; Lymphocytes # 0.6 10^3/uL (0.8-4.8); Lymphocytes % 5.5 %; Mean Corpuscular HGB Conc 36.3 g/dL (30-55); Mean Corpuscular Hemoglobin 36.1 pg (27-33); Mean Corpuscular Volume 99.6 fl (82-101); Mean Platelet Volume 12.1 fL (7.4-10.4); Monocytes # 0.7 10^3/uL (0.2-0.9); Monocytes % 6.8 %; Neutrophils # 8.85 10^3/uL (1.8-7.7); Neutrophils % 85.6 %; Nucleated Red Blood Cells % 0 %; Platelet Count 54 10^3/cmm (157-399); Red Blood Count 2.41 10^6/uL (3.85-5.65); Red Cell Distribution Width 17.2 % (12.1-15.1); White Blood Count 10.34 10^3/uL (3.29-11.43)
[2024-05-04 05:35] LABS: Alanine Aminotransferase 72 U/L (0-41); Albumin Level 2.3 g/dL (3.5-5.2); Alkaline Phosphatase 75 U/L (40-130); Anion Gap 15.1 (5-19); Aspartate Amino Transferase 99 U/L (0-40); Blood Urea Nitrogen 45 mg/dL (6-20); Calcium 7.1 mg/dL (8.5-10.5); Carbon Dioxide 24 mmol/L (22-29); Chloride 86 mmol/L (98-107); Glomerular Filtration Rate 24.7 mL/min (90-130); Glucose 213 mg/dL (65-115); Osmolality Calculated 268 mOsm/kg (285-295); Phosphorus 6.7 mg/dL (2.5-4.5); Potassium 5.1 mmol/L (3.5-5.1); Sodium 120 mmol/L (136-145); Total Protein 6.3 g/dL (6.6-8.7)
[2024-05-04 05:39] LABS: Procalcitonin 4.44 ng/mL (0-0.5)
[2024-05-04 05:46] LABS: Estmated Average Glucose 85; Hemoglobin A1C 4.6 % (4.0-6.0)
[2024-05-04 05:49] LABS: Folate Level 6.1 ng/mL (4.5-32.2)
[2024-05-04 05:50] LABS: Chol HDL Ratio 6.45 mg/dL (1.0-5.00); Cholesterol 71 mg/dL (0-200); HDL Cholesterol 11 mg/dL (60-100); LDL Cholesterol Calculated 45 mg/dL (50-129); LDL HDL Ratio 4.09 RATIO (0.00-3.22); Triglycerides 76 mg/dL (0-150)
[2024-05-04] MEDS: octreotide 500 MCG in sodium chloride 0.9% (100 ml) 100 ML 10.1 MCG IV ×2 (06:05→18:33)
[2024-05-04] MEDS: rifaximin 200 mg Tablet 600 MG PO ×2 (08:26→17:41)
[2024-05-04] MEDS: midodrine 5 mg TABLET PO ×3 (08:26→21:48)
--- OUTSIDE RECORDS SUMMARY | 2024-05-04 09:45 | XMS_ITS | Continuity of Care Document ---
Author Name Unknown Organization [facility][1] Address [address] [place] [address] Encounter [id number] Date(s): 11/14/23 - 11/14/23 [facility] [place] [address] [place] [phone] Encounter Diagnosis Hypomagnesemia(Discharge Diagnosis) - 11/14/23 Hypokalemia(Discharge Diagnosis) - 11/14/23 Abdominal pain(Discharge Diagnosis) - 11/14/23 Anemia(Discharge Diagnosis) - 11/14/23 Discharge Disposition: D/C - Home Attending Physician: RAYMOND LEON MD Allergies, Adverse Reactions, Alerts Substance Reaction Severity Status Demerol Severe Active Medications magnesium oxide 400 mg oral tablet = 1 tab(s), Oral, Daily, X 7 day(s), # 7 tab(s), 0 Refill(s) Start Date: 11/14/23 Stop Date: 11/21/23 Status: Ordered Pepcid AC 10 mg oral tablet = 1 tab(s), Oral, BID, # 30 tab(s), 0 Refill(s) Start Date: 11/14/23 Status: Ordered Mental Status 11/14/23 Orientation Assessment Oriented x 4 Affect/Behavior Appropriate, Calm, Cooperative Problem List No Known Problems Results Laboratory List Name Date .Troponin I HS 1 Hour 11/14/23 Urinalysis w/Reflex Micro/Reflex Culture (UA w/Reflex Micro/Reflex Culture) 11/14/23 .Differential Automated 11/14/23 Amylase Blood 11/14/23 Complete Blood Count w/Diff Auto (CBC w/ Diff Auto) 11/14/23 Comprehensive Metabolic Profile (CMP) Creatine Kinase (CPK) 11/14/23 Ethanol Level (Alcohol Level) 11/14/23 Lactic Acid 11/14/23 Lipase 11/14/23 Magnesium Serum 11/14/23 Prothrombin Time w/INR (PT w/INR) 4 Troponin I HS 11/14/23 Most recent to oldest [Reference Range]: 1 2 Dipstick Type? Auto (11/14/23 2:38 PM) Reflex Urine Culture? No (11/14/23 2:38 PM) Reflex Microscopic Type? Not Reqd (11/14/23 2:38 PM) eGFR [>=90 mL/min/1.73m??] 117 mL/min/1. 73m?? 1 (11/14/23 1:56 PM) nRBC% Auto 0 % *NA* (11/14/23 1:56 PM) nRBC# Auto 0 /100 WBC *NA* (11/14/23 1:56 PM) RBC [4.45-5.99] 3.03 *LOW* (11/14/23 1:56 PM) PT [9.6-12.4 second(s)] 13.8 second(s) *HI* (11/14/23 1:56 PM) INR 1.2 2 *NA* (11/14/23 1:56 PM) BUN [8-17 mg/dL] 4 mg/dL *LOW* (11/14/23 1:56 PM) Albumin [3.6-4.9 g/dL] 2.3 g/dL *LOW* (11/14/23 1:56 PM) Alkaline Phosphatase [51-135 U/L] 87 U/L (11/14/23 1:56 PM) ALT [31-64 U/L] 62 U/L (11/14/23 1:56 PM) Anion Gap [3.1-10.9 mmol/L] 9.0 mmol/L (11/14/23 1:56 PM) AST [16-36 U/L] 221 U/L *HI* (11/14/23 1:56 PM) Basophils# Auto [1.0-1.0] 0.1 *LOW* (11/14/23 1:56 PM) Basophils% Auto [1.0-4.0 %] 1.2 % (11/14/23 1:56 PM) Bili Total [0.1-0.9 mg/dL] 1.9 mg/dL *HI* (11/14/23 1:56 PM) BUN/Crea Ratio [6.01-19.99] 6.67 (11/14/23 1:56 PM) Calcium [8.6-10.0 mg/dL] 7.9 mg/dL *LOW* (11/14/23 1:56 PM) Creatinine [0.6-1.3 mg/dL] 0.6 mg/dL (11/14/23 1:56 PM) Eos# Auto [2.0-2.0] 0.0 *LOW* (11/14/23 1:56 PM) Eosinophils% Auto [1.0-2.0 %] 0.3 % *LOW* (11/14/23 1:56 PM) Globulin 5 *NA* (11/14/23 1:56 PM) HCT [40.1-53.9 %] 29.1 % *LOW* (11/14/23 1:56 PM) Hgb [13.4-17.6 g/dL] 10.3 g/dL *LOW* (11/14/23 1:56 PM) Potassium [3.6-5.2 mEq/L] 3.2 mEq/L *LOW* (11/14/23 1:56 PM) Lymphocytes# Auto [2.0-4.0] 1.3 *LOW* (11/14/23 1:56 PM) Lymphocytes% Auto [22.0-50.0 %] 15.3 % *LOW* (11/14/23 1:56 PM) MCH [27.1-32.9 pg] 33.9 pg *HI* (11/14/23 1:56 PM) MCHC [32.1-35.9] 35.3 (11/14/23 1:56 PM) MCV [80.1-96.9 fL] 96.1 fL (11/14/23 1:56 PM) Monocytes# Auto [1.0-1.0] 0.6 *LOW* (11/14/23 1:56 PM) Monocytes% Auto [3.0-8.0 %] 7.2 % (11/14/23 1:56 PM) Neutrophils# Auto [3.0-7.0] 6.4 (11/14/23 1:56 PM) Neutrophils% Auto [38.0-69.0 %] 76.0 % *HI* (11/14/23 1:56 PM) Plt Cnt [151-449 x10^3/mcL] 142 x10^3/mc L *LOW* (11/14/23 1:56 PM) Prot Total [6.5-8.2 g/dL] 7.6 g/dL (11/14/23 1:56 PM) RDW [11.6-14.4 %] 14.0 % (11/14/23 1:56 PM) WBC [4.6-10.9 K/uL] 8.4 K/uL (11/14/23 1:56 PM) Sodium [136-149 mmol/L] 137 mmol/L (11/14/23 1:56 PM) Albumin/Globulin Ratio [1.01-2.49] 0.43 *LOW* (11/14/23 1:56 PM) Ca Corrected [8.6-10.0 mg/dL] 9.3 mg/dL (11/14/23 1:56 PM) Glucose [71-109 mg/dL] 92 mg/dL (11/14/23 1:56 PM) MPV [7.5-10.3 fL] 10.1 fL (11/14/23 1:56 PM) Chloride [96-109 mmol/L] 98 mmol/L (11/14/23 1:56 PM) Ur Appearance [Clear] Clear (11/14/23 2:38 PM) Ur Bili [Negative] Negative (11/14/23 2:38 PM) Ur Blood [Negative] Negative (11/14/23 2:38 PM) Ur Collection Source U Clean Catch (11/14/23 2:38 PM) Ur Color [Straw] Yellow (11/14/23 2:38 PM) Ur Glucose [Negative] Negative (11/14/23 2:38 PM) Ur Ketone [Negative] Negative (11/14/23 2:38 PM) Ur Leukocyte Esterase [Negative] Negativ e (11/14/23 2:38 PM) Ur Nitrite Negative (11/14/23 2:38 PM) Ur pH 6.0 (11/14/23 2:38 PM) Ur Specific Schroeder 1.010 (11/14/23 2:38 PM) Ur Urobilinogen 4.0 (11/14/23 2:38 PM) CK [40-307 U/L] 31 U/L *LOW* (11/14/23 1:56 PM) Ethanol Lvl [>=0.00 %] 0.03 % (11/14/23 1:56 PM) Magnesium [1.90-2.30 mg/dL] 1.60 mg/dL *LOW* (11/14/23 1:56 PM) Ur Protein Negative (11/14/23 2:38 PM) Amylase [26-114 U/L] 58 U/L (11/14/23 1:56 PM) Lipase [17-76 U/L] 159 U/L *HI* (11/14/23 1:56 PM) ETOH RawVal 27 mg/dL *NA* (11/14/23 1:56 PM) Lactic Acid [0.4-2.0 mmol/L] 1.7 mmol/L (11/14/23 1:56 PM) Carbon Dioxide [22-33 mmol/L] 30 mmol/L (11/14/23 1:56 PM) Troponin I HS [43.21-81.29 pg/mL] <4.00 pg/mL 3 *LOW* (11/14/23 3:08 PM) <4.00 pg/mL 4 *LOW* (11/14/23 1:56 PM) Osmol Calc [276-294 mOsm/kg] 270 mOsm/kg *LOW* (11/14/23 1:56 PM) 1Interpretive Data: CKD is defined by the presence of glomerular filtration rate (GFR) <60 mL for>3 months and/or evidence of kidney damage (eg, structural abnormalities, histologic abnormalities, albuminuria, urinary sediment abnormalities, renal tubular disorders, and/or history of kidney tr ansplantation) for >3months. This table provides interpretation of specific eGFR values. Creatinine measurements, and therefore eGFR calculations, are affected by very high or very low muscle mass, muscle injury, a diet very high in meat, hepatic cirrhosis, certain drugs, etc. Stages of CKD: Stage Description GFR mL/min 1 Kidney damage with normal or increased GFR 90 2 Kidney damage with mild decrease in GFR 60 to 89 3 Moderate decrease in GFR 30 to 59 4 Severe decrease in GFR 15 to 29 5 Kidney failure <15 (or dialysis) Note: GFR Normal range >60, equation not validated for ages <18 and >70 and women. 2Interpretive Data: INR Interpretive Data Thrombotic Disorder Recommended INR Prophylaxis/treatment of: Venous Thrombosis 2.0-3.0 Pulmonary Embolism 2.0-3.0 Prevention of Systemic Embolism from: Tissue Heart Valves 2.0-3.0 Myocardial Infarction 2.0-3.0 (prevent systemic embolism) Valvular Heart Disease 2.0-3.0 Atrial Fibrilation 2.0-3.0 Mechanical Prosthetic Valves 2.5.3.5 3Interpretive Data: Single assay Troponins are not recommended for either exclusion or diagnosis of MA or ischemia. Both falsely elevated and false negatives occur. Serial assays over 3-6 hours are recommended. 4Interpretive Data: Single assay Troponins are not recommended for either exclusion or diagnosis of MA or ischemia. Both falsely elevated and false negatives occur. Serial assays over 3-6 hours are recommended. Vital Signs Most recent to oldest [Reference Range]: 1 Patient Height 182.88 cm (11/14/23 1:38 PM) Patient Weight (kg) 106.593 kg (11/14/23 1:38 PM) Bland Body Weight Calculated 77.6 kg (11/14/23 1:38 PM) Blood Pressure [95-120/59-81 mmHg] 128/8 8mmHg *HI* (11/14/23 1:38 PM) Mean Arterial Pressure, Cuff 101 mmHg *>HHI* (11/14/23 1:38 PM) SpO2 97 % (11/14/23 1:38 PM) Respiratory Rate [10-21 br/min] 16 br/mi n (11/14/23 1:38 PM) Social History Social History Type Response Smoking Status Tobacco use status 3 0 days prior to admission No tobacco use of any form;Never (less than 100 in lifetime) entered on: 11/14/23 Sex Male Hospital Discharge Instructions Patient Education 11/14/2023 16:24:49 Anemia Anemia Anemia is a condition in which there are not enough red blood cells or hemoglobin in the blood. Hemoglobin is a substance in red blood cells that carries oxygen. When you do not have enough red blood cells or hemoglobin (are anemic), your body cannot get enoughoxygen, and your organs may not work properly. As a result, you may feel very tired or have other problems. What are the causes? Common causes of anemia include: ??? Excessive bleeding. Anemia can be caused by excessive bleeding inside or outside the body, including bleeding from the intestines or from heavy menstrual periods in females. ??? Poor nutrition. ??? Long-lasting (chronic) kidney, thyroid, and liver disease. ??? Bone marrow disorders, spleen problems, and blood disorders. ??? Cancer and treatments for cancer. ??? Human immunodeficiency virus (HIV) and acquired immunodeficiency syndrome (AIDS). ??? Infections, medicines, and autoimmune disorders that destroy red blood cells. What are the signs or symptoms? Symptoms of this condition include: ??? Minor weakness. ??? Dizziness. ??? Headache, or difficulties concentrating and sleeping. ??? Heartbeats that feel irregular or faster than normal (palpitations). ??? Shortness of breath, especially with exercise. ??? Pale skin, lips, and nails, or cold hands and feet. ??? Upset stomach (indigestion) and nausea. Symptoms may occur suddenly or develop slowly. If your anemia is mild, you may not have symptoms. How is this diagnosed? This condition is diagnosed based on blood tests, your medical history, and a physical exam. In some cases, a test may be needed in which cells are removed from the soft tissue inside of a bone and looked at under a microscope (bone marrow biopsy). Your health care provider may also check your stool (feces) for blood and may do more testing to look for the cause of your bleeding. Other tests may include: ??? Imaging tests, such as a CT scan or MRI. ??? A procedure to see inside your esophagus and stomach (endoscopy). The esophagus is the part of the body that moves food from your mouth to your stomach. ??? A procedure to see inside your colon and rectum (colonoscopy). How is this treated? Treatment for this condition depends on the cause. If you continue to lose a lot of blood, you may need to be treated at a hospital. Treatment may include: ??? Taking supplements of iron, vitamin B12, or folic acid. ??? Taking a hormone medicine (erythropoietin) that can help to stimulate red blood cell growth. ??? Receiving donated blood through an IV (blood transfusion). This may be needed if you lose a lotof blood. ??? Making changes to your diet. ??? Having surgery to remove your spleen. Follow these instructions at home: ??? Take rctv-xfj-lkiuxal and prescription medicines only as told by your health care provider. ??? Take supplements only as told by your health care provider. ??? Follow any diet instructions that you were given by your health care provider. ??? Keep all follow-up visits. Your health care provider will want to recheck your blood tests. Contact a health care provider if: ??? You develop new bleeding anywhere in the body. ??? You are very weak. Get help right away if: ??? You are short of breath. ??? You have pain in your abdomen or chest. ??? You are dizzy or feel faint. ??? You have trouble concentrating. ??? You have bloody stools, black stools, or tarry stools. ??? You vomit repeatedly or you vomit up blood. These symptoms may be an emergency. Get help right away. Call 911. ??? Do not wait to see if the symptoms will go away. ??? Do not drive yourself to the hospital. Summary ??? Anemia is a condition in which you do not have enough red blood cells or enough of a substance in your red blood cells that carries oxygen. ??? Symptoms may occur suddenly or develop slowly. ??? If your anemia is mild, you may not have symptoms. ??? This condition is diagnosed with blood tests, a medical history, and a physical exam. Other tests may be needed. ??? Treatment for this condition depends on the cause of the anemia. This information is not intended to replace advice given to you by your health care provider. Make sure you discuss any questions you have with your health care provider. Document Revised: 10/11/2022 Document Reviewed: 10/11/2022 [employer] Patient Education ?? 2022 [employer] 11/14/2023 16:24:02 Hypokalemia Hypokalemia Hypokalemia means that the amount of potassium in the blood is lower than normal. Potassium is a mineral (electrolyte) that helps regulate the amount of fluid in the body. It also stimulates muscle tightening (contraction) and helps nerves work properly. Normally, most of the body's potassium is inside cells, and only a very small amount is in the blood. Because the amount in the blood is so small, minor changes to potassium levels in the blood can be life-threatening. What are the causes? This condition may be caused by: ??? Antibiotic medicine. ??? Diarrhea or vomiting. Taking too much of a medicine that helps you have a bowel movement (laxative) can cause diarrhea and lead to hypokalemia. ??? Chronic kidney disease (CKD). ??? Medicines that help the body get rid of excess fluid (diuretics). ??? Eating disorders, such as anorexia or bulimia. ??? Low magnesium levels in the body. ??? Sweating a lot. What are the signs or symptoms? Symptoms of this condition include: ??? Weakness. ??? Constipation. ??? Fatigue. ??? Muscle cramps. ??? Mental confusion. ??? Skipped heartbeats or irregular heartbeat (palpitations). ??? Tingling or numbness. How is this diagnosed? This condition is diagnosed with a blood test. How is this treated? This condition may be treated by: ??? Taking potassium supplements. ??? Adjusting the medicines that you take. ??? Eating more foods that contain a lot of potassium. If your potassium level is very low, you may need to get potassium through an IV and be monitored in the hospital. Follow these instructions at home: Eating and drinking ??? Eat a healthy diet. A healthy diet includes fresh fruits and vegetables, whole grains, healthy fats, and lean proteins. ??? If told, eat more foods that contain a lot of potassium. These include: ??? Nuts, such as peanuts and pistachios. ??? Seeds, such as sunflower seeds and pumpkin seeds. ??? Peas, lentils, and penny beans. ??? Whole grain and bran cereals and breads. ??? Fresh fruits and vegetables, such as apricots, avocado, bananas, cantaloupe, kiwi, oranges, tomatoes, asparagus, and potatoes. ??? Juices, such as orange, tomato, and prune. ??? Lean meats, including fish. ??? Milk and milk products, such as yogurt. General instructions ??? Take ryac-uds-ayhupki and prescription medicines only as told by your health care provider. This includes vitamins, natural food products, and supplements. ??? Keep all follow-up visits. This is important. Contact a health care provider if: ??? You have weakness that gets worse. ??? You feel your heart pounding or racing. ??? You vomit. ??? You have diarrhea. ??? You have diabetes and you have trouble keeping your blood sugar in your target range. Get help right away if: ??? You have chest pain. ??? You have shortness of breath. ??? You have vomiting or diarrhea that lasts for more than 2 days. ??? You faint. These symptoms may be an emergency. Get help right away. Call 911. ??? Do not wait to see if the symptoms will go away. ??? Do not drive yourself to the hospital. Summary ??? Hypokalemia means that the amount of potassium in the blood is lower than normal. ??? This condition is diagnosed with a blood test. ??? Hypokalemia may be treated by taking potassium supplements, adjusting the medicines that you take, or eating more foods that are high in potassium. ??? If your potassium level is very low, you may need to get potassium through an IV and be monitored in the hospital. This information is not intended to replace advice given to you by your health care provider. Make sure you discuss any questions you have with your health care provider. Document Revised: 04/01/2022 Document Reviewed: 04/01/2022 [employer] Patient Education ?? 2022 [employer] 11/14/2023 16:24:00 Abdominal Pain, Adult Abdominal Pain, Adult Pain in the abdomen (abdominal pain) can be caused by many things. Often, abdominal pain is not serious and it gets better with no treatment or by being treated at home. However, sometimes abdominal pain is serious. Your health care provider will ask questions about your medical history and do a physical exam to try to determine the cause of your abdominal pain. Follow these instructions at home: Medicines ??? Take hprm-chl-ouglaii and prescription medicines only as told by your health care provider. ??? Do not take a laxative unless told by your health care provider. General instructions ??? Watch your condition for any changes. ??? Drink enough fluid to keep your urine pale yellow. ??? Keep all follow-up visits as told by your health care provider. This is important. Contact a health care provider if: ??? Your abdominal pain changes or gets worse. ??? You are not hungry or you lose weight without trying. ??? You are constipated or have diarrhea for more than 2???3 days. ??? You have pain when you urinate or have a bowel movement. ??? Your abdominal pain wakes you up at night. ??? Your pain gets worse with meals, after eating, or with certain foods. ??? You are vomiting and cannot keep anything down. ??? You have a fever. ??? You have blood in your urine. Get help right away if: ??? Your pain does not go away as soon as your health care provider told you to expect. ??? You cannot stop vomiting. ??? Your pain is only in areas of the abdomen, such as the right side or the left lower portion of the abdomen. Pain on the right side could be caused by appendicitis. ??? You have bloody or black stools, or stools that look like tar. ??? You have severe pain, cramping, or bloating in your abdomen. ??? You have signs of dehydration, such as: ??? Dark urine, very little urine, or no urine. ??? Cracked lips. ??? Dry mouth. ??? Sunken eyes. ??? Sleepiness. ??? Weakness. ??? You have trouble breathing or chest pain. Summary ??? Often, abdominal pain is not serious and it gets better with no treatment or by being treated at home. However, sometimes abdominal pain is serious. ??? Watch your condition for any changes. ??? Take zpnf-cao-reemawm and prescription medicines only as told by your health care provider. ??? Contact a health care provider if your abdominal pain changes or gets worse. ??? Get help right away if you have severe pain, cramping, or bloating in your abdomen. This information is not intended to replace advice given to you by your health care provider. Make sure you discuss any questions you have with your health care provider. Document Revised: 09/05/2020 Document Reviewed: 11/26/2019 [employer] Patient Education ?? 2022 [employer]. 11/14/2023 16:23:57 Hypomagnesemia Hypomagnesemia Hypomagnesemia is a condition in which the level of magnesium in the blood is too low. Magnesium madi mineral that is found in many foods. It is used in many different processes in the body. Hypomagnesemia can affect every organ in the body. In severe cases, it can cause life-threatening problems. What are the causes? This condition may be caused by: ??? Not getting enough magnesium in your diet or not having enough healthy foods to eat (malnutrition). ??? Problems with magnesium absorption in the intestines. ??? Dehydration. ??? Excessive use of alcohol. ??? Vomiting. ??? Severe or long-term (chronic) diarrhea. ??? Some medicines, including medicines that make you urinate more often (diuretics). ??? Certain diseases, such as kidney disease, diabetes, celiac disease, and overactive thyroid. What are the signs or symptoms? Symptoms of this condition include: ??? Loss of appetite, nausea, and vomiting. ??? Involuntary shaking or trembling of a body part (tremor). ??? Muscle weakness or tingling in the arms and legs. ??? Sudden tightening of muscles (muscle spasms). ??? Confusion. ??? Psychiatric issues, such as: ??? Depression and irritability. ??? Psychosis. ??? A feeling of fluttering of the heart (palpitations). ??? Seizures. These symptoms are more severe if magnesium levels drop suddenly. How is this diagnosed? This condition may be diagnosed based on: ??? Your symptoms and medical history. ??? A physical exam. ??? Blood and urine tests. How is this treated? Treatment depends on the cause and the severity of the condition. It may be treated by: ??? Taking a magnesium supplement. This can be taken in pill form. If the condition is severe, magnesium is usually given through an IV. ??? Making changes to your diet. You may be directed to eat foods that have a lot of magnesium, such as green leafy vegetables, peas, beans, and nuts. ??? Not drinking alcohol. If you are struggling not to drink, ask your health care provider for help. Follow these instructions at home: Eating and drinking ??? Make sure that your diet includes foods with magnesium. Foods that have a lot of magnesium in them include: ??? Green leafy vegetables, such as spinach and broccoli. ??? Beans and peas. ??? Nuts and seeds, such as almonds and sunflower seeds. ??? Whole grains, such as whole grain bread and fortified cereals. ??? Drink fluids that contain salts and minerals (electrolytes), such as sports drinks, when you are active. ??? Do not drink alcohol. General instructions ??? Take ihaw-vpq-pyzihcz and prescription medicines only as told by your health care provider. ??? Take magnesium supplements as directed if your health care provider tells you to take them. ??? Have your magnesium levels monitored as told by your health care provider. ??? Keep all follow-up visits. This is important. Contact a health care provider if: ??? You get worse instead of better. ??? Your symptoms return. Get help right away if: ??? You develop severe muscle weakness. ??? You have trouble breathing. ??? You feel that your heart is racing. These symptoms may represent a serious problem that is an emergency. Do not wait to see if the symptoms will go away. Get medical help right away. Call your local emergency services (911 in the [place] Do not drive yourself to the hospital. Summary ??? Hypomagnesemia is a condition in which the level of magnesium in the blood is too low. ??? Hypomagnesemia can affect every organ in the body. ??? Treatment may include eating more foods that contain magnesium, taking magnesium supplements, and not drinking alcohol. ??? Have your magnesium levels monitored as told by your health care provider. This information is not intended to replace advice given to you by your health care provider. Make sure you discuss any questions you have with your health care provider. Document Revised: 12/15/2021 Document Reviewed: 12/15/2021 [employer] Patient Education ?? 2022 [employer] Follow Up Care 11/14/2023 13:29:52 With:Sedrick [employer] Address: [address] [place] [id number] [phone] When:1 to 2 days Comments:Magnesium as prescribed.Pepcid for stomach acid.Stop alcohol use.Follow up with assigned provider.Read information provided Patient Care team information Care Team Related Persons Name: MELVIN OSPINA Address: Home Name: PER, PATIENT
--- OUTSIDE RECORDS SUMMARY | 2024-05-04 09:45 | XMS_ITS | Continuity of Care Document ---
Author Name Unknown Organization [facility] Address [address] [place] [address] Encounter [id number] Date(s): 11/15/23 - 11/15/23 [facility] [address] [place], [place] [address] [address]- Encounter Diagnosis Chest pain(Discharge Diagnosis) - 11/15/23 Abdominal pain(Discharge Diagnosis) - 11/15/23 Elevated liver enzymes level(Discharge Diagnosis) - 11/15/23 Discharge Disposition: Home or Self Care Attending Physician: BENNY AMADOR MD Allergies, Adverse Reactions, Alerts Substance Reaction Severity Status Demerol Severe Active Medications magnesium oxide 400 mg oral tablet = 1 tab(s), Oral, Daily, X 7 day(s), # 7 tab(s), 0 Refill(s) Start Date: 11/14/23 Stop Date: 11/21/23 Status: Ordered Pepcid AC 10 mg oral tablet = 1 tab(s), Oral, BID, # 30 tab(s), 0 Refill(s) Start Date: 11/14/23 Status: Ordered Mental Status 11/15/23 Orientation Assessment Oriented x 4 Problem List No Known Problems Results Laboratory List Name Date .Differential Automated 11/15/23 Complete Blood Count w/Diff Auto (CBC w/ Diff Auto) 11/15/23 Comprehensive Metabolic Profile (CMP) Lipase 11/15/23 Troponin I HS 11/15/23 Most recent to oldest [Reference Range]: 1 eGFR [>=90 mL/min/1.73m??] 104 mL/min/1. 73m?? 1 (11/15/23 4:09 AM) nRBC% Auto 0 % *NA* (11/15/23 4:09 AM) nRBC# Auto 0 /100 WBC *NA* (11/15/23 4:09 AM) RBC [4.45-5.99] 3.30 *LOW* (11/15/23 4:09 AM) BUN [8-17 mg/dL] 5 mg/dL *LOW* (11/15/23 4:09 AM) Albumin [3.6-4.9 g/dL] 2.7 g/dL *LOW* (11/15/23 4:09 AM) Alkaline Phosphatase [51-135 U/L] 103 U/ L (11/15/23 4:09 AM) ALT [31-64 U/L] 64 U/L (11/15/23 4:09 AM) Anion Gap [3.1-10.9 mmol/L] 11.0 mmol/L *HI* (11/15/23 4:09 AM) AST [16-36 U/L] 192 U/L *HI* (11/15/23 4:09 AM) Basophils# Auto [1.0-1.0] 0.1 *LOW* (11/15/23 4:09 AM) Basophils% Auto [1.0-4.0 %] 1.3 % (11/15/23 4:09 AM) Bili Total [0.1-0.9 mg/dL] 2.0 mg/dL *HI* (11/15/23 4:09 AM) BUN/Crea Ratio [6.01-19.99] 6.25 (11/15/23 4:09 AM) Calcium [8.6-10.0 mg/dL] 8.6 mg/dL (11/15/23 4:09 AM) Creatinine [0.6-1.3 mg/dL] 0.8 mg/dL (11/15/23 4:09 AM) Eos# Auto [2.0-2.0] 0.0 *LOW* (11/15/23 4:09 AM) Eosinophils% Auto [1.0-2.0 %] 0.3 % *LOW* (11/15/23 4:09 AM) Globulin 6 *NA* (11/15/23 4:09 AM) HCT [40.1-53.9 %] 31.7 % *LOW* (11/15/23 4:09 AM) Hgb [13.4-17.6 g/dL] 11.2 g/dL *LOW* (11/15/23 4:09 AM) Potassium [3.6-5.2 mEq/L] 3.5 mEq/L *LOW* (11/15/23 4:09 AM) Lymphocytes# Auto [2.0-4.0] 1.1 *LOW* (11/15/23 4:09 AM) Lymphocytes% Auto [22.0-50.0 %] 12.9 % *LOW* (11/15/23 4:09 AM) MCH [27.1-32.9 pg] 33.9 pg *HI* (11/15/23 4:09 AM) MCHC [32.1-35.9] 35.2 (11/15/23 4:09 AM) MCV [80.1-96.9 fL] 96.3 fL (11/15/23 4:09 AM) Monocytes# Auto [1.0-1.0] 0.5 *LOW* (11/15/23 4:09 AM) Monocytes% Auto [3.0-8.0 %] 6.3 % (11/15/23 4:09 AM) Neutrophils# Auto [3.0-7.0] 6.7 (11/15/23 4:09 AM) Neutrophils% Auto [38.0-69.0 %] 79.2 % *HI* (11/15/23 4:09 AM) Plt Cnt [151-449 x10^3/mcL] 163 x10^3/mc L (11/15/23 4:09 AM) Prot Total [6.5-8.2 g/dL] 8.7 g/dL *HI* (11/15/23 4:09 AM) RDW [11.6-14.4 %] 14.3 % (11/15/23 4:09 AM) WBC [4.6-10.9 K/uL] 8.5 K/uL (11/15/23 4:09 AM) Sodium [136-149 mmol/L] 139 mmol/L (11/15/23 4:09 AM) Albumin/Globulin Ratio [1.01-2.49] 0.45 *LOW* (11/15/23 4:09 AM) Ca Corrected [8.6-10.0 mg/dL] 9.6 mg/dL (11/15/23 4:09 AM) Glucose [71-109 mg/dL] 129 mg/dL *HI* (11/15/23 4:09 AM) MPV [7.5-10.3 fL] 9.6 fL (11/15/23 4:09 AM) Chloride [96-109 mmol/L] 98 mmol/L (11/15/23 4:09 AM) Lipase [17-76 U/L] 181 U/L *HI* (11/15/23 4:09 AM) Carbon Dioxide [22-33 mmol/L] 30 mmol/L (11/15/23 4:09 AM) Troponin I HS [43.21-81.29 pg/mL] <4.00 pg/mL 2 *LOW* (11/15/23 4:09 AM) Osmol Calc [276-294 mOsm/kg] 276 mOsm/kg (11/15/23 4:09 AM) 1Interpretive Data: CKD is defined by the [...] <18 and >70 and women. 2Interpretive Data: Single assay Troponins are not recommended for either exclusion or diagnosis of AK or ischemia. Both falsely elevated and false negatives occur. Serial assays over 3-6 hours are recommended. Radiology Reports * Exam Date Time Procedure Performing Provider Status 11/15/23 5:[address] Abdomen Pelvis W Kilbreth, An n Juanita CT Techno I; Auth (Verified) Notes: (CT Abdomen Pelvis W) Reason For Exam: Abdominal pain, generalized REPORT EXAM: CT OF THE ABDOMEN AND PELVIS WITH CONTRAST TECHNIQUE: CT of the abdomen and pelvis was performed with contrast. Multiplanar reformats were performed. HISTORY: Generalized abdominal pain. COMPARISON: None. FINDINGS: Imaged lower thorax: Mild dependent atelectasis in the right lower lobe. Asymmetric elevation righthemidiaphragm. Liver: Diffuse parenchymal hypoattenuation. Gallbladder/Bile Ducts: No biliary dilation. Gallbladder is unremarkable. Spleen: Unremarkable. Pancreas: Unremarkable. Adrenals: Unremarkable. Kidneys/Ureters: Unremarkable. Bowel/mesentery/peritoneum: No bowel obstruction. Normal appendix. Trace free fluid. No free air per Retroperitoneum/vessels: No aortic aneurysm. No adenopathy. Pelvis: Unremarkable. Bones/body wall: Status post fusion and corpectomy device placed at the T11-L1 levels. Multilevel degenerative spondylosis. IMPRESSION: No acute abnormality in the abdomen or pelvis. Asymmetric elevation right hemidiaphragm. Mild atelectasis in the lung bases. Fatty infiltration of the liver. Trace ascites. All CT scans are performed using dose optimization techniques as appropriate to the performed exam and include at least one of the following: Automated exposure control, adjustment of the mA and/or kV accordingto size, and the use of iterative reconstruction technique. Final Signed by: JOSIAH CARTER MD Signed (Electronic Signature): 11/15/2023 06:23 am CDT * Exam Date Time Procedure Performing Provider Status 11/15/23 4:08 AM XR Chest 1 V Portable [address] Techno I; Auth (Verified) Notes: (XR Chest [address]) Reason For Exam: Shortness of breath (SOB) REPORT EXAM: CHEST RADIOGRAPH TECHNIQUE: Single frontal chest radiograph. HISTORY: Shortness of breath. COMPARISON: None. FINDINGS: The heart size is normal. Mediastinal contours and pulmonary vasculature are within normal limits. The lungs are clear. There is no pleural effusion. There is no pneumothorax. IMPRESSION: 1. No acute findings. Final Signed by: Roberth Harvey MD Signed (Electronic Signature): 11/15/2023 04:50 am CDT Vital Signs Most recent to oldest [Reference Range]: 1 2 Patient Height 182.88 cm (11/15/23 1:05 AM) Patient Weight (kg) 101.15 kg (11/15/23 1:05 AM) [place] Body Weight Calculated 77.6 kg (11/15/23 1:05 AM) Blood Pressure [95-120/59-81 mmHg] 114/7 8mmHg (11/15/23 6:30 AM) Mean Arterial Pressure, Cuff 79 mmHg (11/15/23 1:05 AM) SpO2 93 % (11/15/23 6:30 AM) 95 % (11/15/23 6:30 AM) Peripheral Pulse Rate [60-100 bpm] 73 bp m (11/15/23 6:30 AM) 76 bpm (11/15/23 6:30 AM) Respiratory Rate [10-21 br/min] 20 br/mi n (11/15/23 5:00 AM) Social History Social History Type Response Smoking Status Tobacco use status 3 0 days prior to admission No tobacco use of any form;Never (less than 100 in lifetime) entered on: 11/14/23 Sex Male Hospital Discharge Instructions Patient Education 11/15/2023 05:50:23 Abdominal Pain, Adult Abdominal Pain, Adult Pain [...] these instructions at home: Medicines ??? Take xien-ppe-epmgbhn and prescription medicines only as told by [...] your condition for any changes. ??? Take yzpf-syj-qkneroa and prescription medicines only as told by [...] provider. Document Revised: 09/05/2020 Document Reviewed: 11/26/2019 [employer] Patient Education ?? 2022 [employer]. Follow Up Care 11/15/2023 00:52:22 With:LOLA [facility]IGUEL [facility]ODS [facility] Address: [place]KNOWN [place], [place] - ( ) - 00 When:1 to 2 days Comments:Follow-up with your primary care provider Patient Care team information Care Team Related Persons Name: MELVIN OSPINA Address: Home Name: PER, PATIENT
[2024-05-04] MEDS: pantoprazole 40 mg SDV IVP ×2 (10:40→21:48)
--- NOTE | 2024-05-04 12:03 | XR_ITS ---
WS: [id number] Exam: XR chest 1V portable [id number] Date/Time of Exam: 05/04/2024 12:39 PM Reason For Exam: Post PICC insertion Comparison 05/03/2024. Right-sided PICC line has been placed and ends in the lower one third of the SVC. The lungs are fully expanded. Small LEFT basal pleural effusion noted. There may be infiltrate and/or atelectasis in the LEFT retrocardiac region. No pneumothorax. Normal cardiomediastinal silhouette. Bony structures are intact. Hardware partially visualized in the upper L-spine. XR/XR chest 1V portable [id number] IMPRESSION: 1. Right-sided PICC line in satisfactory position. 2. Atelectasis and/or infiltrate in the LEFT lower lobe and small LEFT basal pl eural effusion.
--- NOTE | 2024-05-04 12:08 | P.PN_ITS ---
Subjective 2 Subjective: No acute events noted since admission. Seen him at bedside this morning. He was anxious and crying being concerned about his health and taking care of his 84-year-old . Had a detailed discussion with him about the prognosis and goals of care in view of decompensated liver cirrhosis. Explained to him about repetitive need for paracentesis. Understands and agreed to speak with the social worker health services about hospice versus comfort care options. Complained of mild right-sided abdominal pain, likely secondary to paracentesis yesterday. But denies any complaint of nausea, vomiting, dizziness, shortness of breath or chest pain. Medications: Reviewed: Yes Vitals/I&O/Wt Last Vital Signs Temp 96.8 F L 05/04/24 09:00 Pulse 94 05/04/24 09:00 Resp 16 05/04/24 09:00 BP 97/69 05/04/24 09:00 Pulse Ox 97 05/04/24 09:00 O2 Del Method Nasal Cannula 05/04/24 09:00 O2 Flow Rate 2 05/04/24 09:00 05/03/24 05/04/24 05/04/24 22:59 06:59 14:59 Intake Total 150 / 150 243.762 / 393.762 480 / 480 Output Total 200 / 200 125 / 125 Balance 150 / 150 43.762 / 193.762 355 / 355 Weight last 48 hrs Weight 80.83 kg Weight 80.83 kg Weight 79.379 kg Physical Exam 2 Narrative: General: No acute distress, AO x3 HEENT: PERRLA, pupils bilaterally equal and reactive, icterus+ Chest: Normal vesicular breath sounds CVS: S1-S2 regular, no murmurs, no tachycardia, no gallops, no rubs Abdomen: Soft, distended, bowel sounds present Neuro: No focal deficits, no facial deformity, AO x3, power 5/5 in all limbs Data 05/04/24 05:05 05/04/24 05:05 Micro: Microbiology 05/03/24 20:35 Blood Culture - Preliminary Blood SPECIMEN COLLECTED 05/03/24 18:45 Blood Culture - Preliminary Blood SPECIMEN COLLECTED A&P Assessment and plan (1) Cirrhosis: Patient with recently diagnosed alcohol-related liver cirrhosis. With T. bili of 10, creatinine of 2.5, INR 2.4, sodium 119, MELD Na score of 36 correlating with 52% mortality. Signs of decompensated cirrhosis currently include portal hypertension, ascites, anasarca. (2) Hepatorenal syndrome: Creatinine worsened from 0.8 on May 01 to 2.5 currently. Likely related to hepatorenal syndrome Start octreotide infusion Midodrine 5 mg 3 times daily Albumin infusion every 8 hours scheduled Closely monitor urine output and kidney function with above interventions. (3) Hyperkalemia: Upon arrival potassium at 6.1 Likely related to acute kidney failure Status post receiving insulin dextrose nebulization. Repeat potassium at 5.3 Repeat with a.m. labs (4) Acute kidney failure: Likely hepatorenal syndrome (5) Ascites: From decompensated cirrhosis. Status post paracentesis in the emergency room today. Added acetic fluid cell count, fluid analysis, protein albumin cytology, Gram stain and culture to fluid already obtained this afternoon. Will await results. (6) Portal hypertension: Related to cirrhosis (7) Hepatic encephalopathy: Patient is slightly disoriented. He did not realize he was in [place] until brought to his attention. Does not recall the exact date. Has asked me for my name repeatedly. May be related to hepatic encephalopathy. Ammonia at 84. Start lactulose every 6 hours and titrate to 2-3 bowel movements per day Start rifaximin 550 mg twice daily. (8) Coagulopathy: Plan DVT prophylaxis: SCDs only. High risk of bleeding given deranged INR 2.4 He would like to be full code for now. States that he has been having a lot of financial issues and has a lot of thinking to do with regards to his own and his elderly 's disposition. He he would like to take some time to think about his CODE STATUS and overall goals of care. 05/04--Labs reviewed this morning, shows a WBC count 10.3, hemoglobin dropped to 8.7, sodium 120, platelets 82 dropped to 54, creatinine stable at 2.7, total bili 9, UA positive, U tox negative, respiratory panel negative. Continue IV Zosyn, octreotide and albumin infusion for now. Continue midodrine, lactulose and rifaximin. Will follow-up ascitic fluid studies, blood culture, urine culture. Plan for PICC line today due to difficult IV access and need for daily labs. Follow-up case management for discharge planning. Check ECHO. Attestations 2 Medical Necessity Statement*: He needs continued hospitalization crossing 2 midnights for management of decompensated liver cirrhosis and hepatorenal syndrome. Time Spent in Patient Care: 20minutes Coding Level of Care Code Acute Code for Chg Fwd Diagnoses Cirrhosis K74.60 Hepatorenal syndrome K76.7 Hyperkalemia E87.5 Acute kidney failure N17.9 Ascites R18.8 Portal hypertension K76.6 Hepatic encephalopathy K76.82 Coagulopathy D68.9 Time Spent (min) 20
--- NOTE | 2024-05-04 12:22 | USCV_ITS ---
Donte Saini Age: 54 Gender: M : 1970 Exam Date: 05/04/2024 14:06 Ordering Phys: Emelia Nur MD Technologist: Suraj Oropeza Exam Location: [facility] [place] Indication: decompensated liver cirrhosis BP: 97 / 69 HR: 85 Rhythm: Sinus Technical Quality: Adequate MEASUREMENTS (Male / Female) Normal Values 2D ECHO LV Diastolic Diameter PLAX 4.4 cm 4.2 - 5.9 / 3.9 - 5.3 cm IVS Diastolic Thickness 1.1 cm 0.6 - 1.0 / 0.6 - 0.9 cm IVS Systolic Thickness 1.1 cm LVPW Diastolic Thickness 1.0 cm 0.6 - 1.0 / 0.6 - 0.9 cm LVPW Systolic Thickness 1.7 cm LVOT Diameter 2.2 cm LV Ejection Fraction 2D Teich 76.7 % LV Ejection Fraction MOD 4C 83.1 % LV Ejection Fraction MOD 2C 58.3 % LV Ejection Fraction 2C AL 60.2 % LA Diameter 3.1 cm RA Systolic Volume 4C AL 51.3 ml RA Systolic Volume 4C MOD 49.3 ml LA Sys Volume AL 47.2 cm cubed LA Sys Volume Index AL 23.2 cm cubed/m squared Aorta at Sinotubular Diameter 3.0 cm IVC Diameter 1.8 cm M-MODE LA Ao Ratio MM 1.3 AV Cusp Separation MM 2.1 cm DOPPLER AV Peak Velocity 201.0 cm/s LVOT Peak Velocity 139.0 cm/s AV Area Cont Eq vti 3.5 cm squared AV Area Cont Eq pk 2.7 cm squared MV Peak Velocity 145.0 cm/s MV Area PHT 7.2 cm squared Mitral E to A Ratio 1.0 TV Peak Velocity 354.0 cm/s TR Peak Velocity 388.0 cm/s TR Peak Gradient 60.2 mmHg TR Mean Velocity 306.0 cm/s TR Mean Gradient 39.7 mmHg TR Velocity Time Integral 106.1 cm PV Peak Velocity 127.3 cm/s RV Ejection Time 0.4 s FINDINGS Left Ventricle Normal left ventricular size and systolic function, EF 60%.no regional wall motion abnormalities. Right Ventricle The right ventricle is normal in size and function. Right Atrium The right atrium is normal in size. Left Atrium The left atrium is normal in size. Mitral Valve Trace to mild mitral valve regurgitation. Aortic Valve Mild aortic valve regurgitation. Minimally thickened aortic valve Tricuspid Valve Moderate tricuspid valve regurgitation. Pulmonic Valve No gross abnormalities noted Pericardium Normal pericardium without effusion. Aorta Normal ascending aorta dimension. IVC Normal IVC dimension with <50% respiratory change of the inferior vena cava. CONCLUSIONS Normal left ventricular size and systolic function, EF 60%.no regional wall motion abnormalities. Mild aortic valve regurgitation. Minimally thickened aortic valve. Trace to mild mitral valve regurgitation. Moderate tricuspid valve regurgitation. Estimated pulmonary artery peak systolic pressure 50 mmHg There is no pericardial effusion. There are no intracardiac masses. No similar previous studies are available for comparison Dr Ynaa Nath MD [facility] (Electronically Signed) Final Date: 04 May 2024 17:25 S
--- NOTE | 2024-05-04 13:14 | PICC.NOTE ---
Double lumen PICC placed to right brachial vein. Referred to vascular access nurse for PICC placement due to poor access. Risks and benefits discussed and informed consent obtained from patient. Right arm assessed with right brachial vein measuring 5.0 mm, straight, and apparent best choice for placement. Using sterile technique and MST, right brachial vein accessed x 1 stick. Mid-arm circumference measured 10 cm from right AC 28 cm. Trimmed cath 40 cm with 0 cm external length noted. CXR shows tip in distal third of SVC, in good position for use per radiologist. Line secured with stat-lock. Insertion site covered with Biopatch and TSM. Report given to bedside nurse, Sander, RN.
--- NOTE | 2024-05-04 15:52 | PC.OT ---
Pt declines OT evaluation today due to feeling fatigued; will attempt again at later time.
[2024-05-04 17:59] LABS: Bacillus cereus group Not Detected (NOT DETECT); Bacillus subtillis group Not Detected (NOT DETECT); Corynebacterium Not Detected (NOT DETECT); Cutibacterium acnes (P.acnes) Not Detected (NOT DETECT); Enterococcus Not Detected (NOT DETECT); Enterococcus faecalis Not Detected (NOT DETECT); Enterococcus faecium Not Detected (NOT DETECT); Lactobacillus species Not Detected (NOT DETECT); Listeria Not Detected (NOT DETECT); Listeria monocytogenes Not Detected (NOT DETECT); Micrococcus Not Detected (NOT DETECT); Pan Candida Not Detected (NOT DETECT); Pan Gram-Negative Not Detected (NOT DETECT); Staphylococcus epidermidis Not Detected (NOT DETECT); Staphylococcus lugdunensis Not Detected (NOT DETECT); Staphylococcus species Detected (NOT DETECT); Streptococcus agalactiae Not Detected (NOT DETECT); Streptococcus anginosus group Not Detected (NOT DETECT); Streptococcus pneumoniae Not Detected (NOT DETECT); Streptococcus pyogenes Not Detected (NOT DETECT); Streptococcus species Not Detected (NOT DETECT); mecA Not Detected (NOT DETECT); mecC Not Detected (NOT DETECT)
--- NOTE | 2024-05-04 19:06 | PC.NURSE ---
SHift SUmmary: Uneventful shift. Patient rested in bed throughout the day, refused to work with PT and refused to get up to a chair. PICC line place. Only 325mL of urine output. 8 loose bowel movements today, lactulose has been changed to PRN.
[2024-05-05] VITALS (27 sets, daily range): BP systolic 102–133; BP diastolic 63–94; PULSE 0–108; RESP 10–26; TEMP 36.8–37.1; O2SAT 90–96; BMI 25.8
--- NOTE | 2024-05-05 03:15 | PC.NURSE ---
Unable to measure voids, patient voided in the bed.
[2024-05-05 03:44] LABS: Basophils % 0.2 %; Eosinophils # 0.1 10^3/uL (0.0-0.8); Eosinophils % 1.1 %; Hematocrit 24.6 % (37-53); Lymphocytes # 0.6 10^3/uL (0.8-4.8); Lymphocytes % 7.3 %; Mean Corpuscular HGB Conc 35.4 g/dL (30-55); Mean Corpuscular Hemoglobin 35.8 pg (27-33); Mean Corpuscular Volume 101.2 fl (82-101); Mean Platelet Volume 12.7 fL (7.4-10.4); Monocytes # 0.8 10^3/uL (0.2-0.9); Monocytes % 9.4 %; Neutrophils # 6.54 10^3/uL (1.8-7.7); Neutrophils % 81.3 %; Nucleated Red Blood Cells % 0 %; Platelet Count 52 10^3/cmm (157-399); Red Blood Count 2.43 10^6/uL (3.85-5.65); Red Cell Distribution Width 17.4 % (12.1-15.1); White Blood Count 8.06 10^3/uL (3.29-11.43)
[2024-05-05] MEDS: octreotide 500 MCG in sodium chloride 0.9% (100 ml) 100 ML 10.1 MCG IV ×3 (03:48→23:46)
[2024-05-05] MEDS: piperacillin-tazobactam 3.375 GM in sodium chloride 0.9% (plus) 50 ML IV ×3 (03:48→19:46)
[2024-05-05] MEDS: albumin 25 G/100 ML BAG 60 G IV ×3 (03:48→19:47)
[2024-05-05 03:57] LABS: INR 2.26 (0.8-1.2)
[2024-05-05 04:11] LABS: Alanine Aminotransferase 57 U/L (0-41); Albumin Level 2.6 g/dL (3.5-5.2); Alkaline Phosphatase 81 U/L (40-130); Blood Urea Nitrogen 48 mg/dL (6-20); Calcium 6.8 mg/dL (8.5-10.5); Carbon Dioxide 22 mmol/L (22-29); Chloride 94 mmol/L (98-107); Globulin 3.5 g/dL (1.3-4.6); Glucose 155 mg/dL (65-115); Osmolality Calculated 282 mOsm/kg (285-295); Sodium 128 mmol/L (136-145); Total Protein 6.1 g/dL (6.6-8.7)
[2024-05-05 04:13] LABS: Creatinine Clr Calc Pharmacy 49.7633
[2024-05-05 04:14] LABS: Anion Gap 17.4 (5-19); Aspartate Amino Transferase 111 U/L (0-40); Potassium 5.4 mmol/L (3.5-5.1); Total Bilirubin 8.2 mg/dL (0.15-1.2)
[2024-05-05] MEDS: rifaximin 200 mg Tablet 600 MG PO ×2 (09:56→18:36)
[2024-05-05] MEDS: midodrine 5 mg TABLET PO ×3 (09:57→20:09)
[2024-05-05] MEDS: pantoprazole 40 mg SDV IVP ×2 (09:58→21:56)
--- NOTE | 2024-05-05 11:20 | P.PN_ITS ---
Subjective 2 Subjective: No acute overnight events noted. Seen him at bedside this morning, feels more alert. Feeling better as compared to admission, right-sided abdominal pain improved. Denies any new complaints. Medications: Reviewed: Yes Vitals/I&O/Wt Last Vital Signs Temp 98.2 F 05/05/24 03:19 Pulse 95 05/05/24 09:00 Resp 12 05/05/24 07:00 BP 113/91 05/05/24 09:00 Pulse Ox 93 05/05/24 08:21 O2 Del Method Nasal Cannula 05/05/24 08:21 O2 Flow Rate 2 05/05/24 08:21 05/04/24 05/05/24 05/05/24 22:59 06:59 14:59 Intake Total 351 / 881 243.425 / 1124.425 650 / 650 Output Total 200 / 325 Balance 151 / 556 243.425 / 799.425 650 / 650 Weight last 48 hrs Weight 86.5 kg Weight 83.824 kg Weight 85.5 kg Weight 80.83 kg Weight 80.83 kg Weight 79.379 kg Physical Exam 2 Narrative: General: No acute distress, AO x3 HEENT: PERRLA, pupils bilaterally equal and reactive, icterus+ Chest: Normal vesicular breath sounds CVS: S1-S2 regular, no murmurs, no tachycardia, no gallops, no rubs Abdomen: Soft, distended, bowel sounds present, slightly tender on the right side Neuro: No focal deficits, no facial deformity, AO x3, power 5/5 in all limbs Data 05/05/24 03:14 05/05/24 03:14 Micro: Microbiology 05/03/24 15:00 Bacterial Antigens - Final Urine Kidney 05/03/24 20:35 Blood Culture - Preliminary Blood NEGATIVE TO DATE 05/03/24 18:45 Blood Culture - Preliminary Blood Staphylococcus species A&P Assessment and plan (1) Cirrhosis: Patient with recently diagnosed alcohol-related liver cirrhosis. With T. bili of 10, creatinine of 2.5, INR 2.4, sodium 119, MELD Na score of 36 correlating with 52% mortality. Signs of decompensated cirrhosis currently include portal hypertension, ascites, anasarca. (2) Hepatorenal syndrome: Creatinine worsened from 0.8 on May 01 to 2.5 currently. Likely related to hepatorenal syndrome Start octreotide infusion Midodrine 5 mg 3 times daily Albumin infusion every 8 hours scheduled Closely monitor urine output and kidney function with above interventions. (3) Hyperkalemia: Upon arrival potassium at 6.1 Likely related to acute kidney failure Status post receiving insulin dextrose nebulization. Repeat potassium at 5.3 Repeat with a.m. labs (4) Acute kidney failure: Likely hepatorenal syndrome (5) Ascites: From decompensated cirrhosis. Status post paracentesis in the emergency room today. Added acetic fluid cell count, fluid analysis, protein albumin cytology, Gram stain and culture to fluid already obtained this afternoon. Will await results. (6) Portal hypertension: Related to cirrhosis (7) Hepatic encephalopathy: Patient is slightly disoriented. He did not realize he was in [place] until brought to his attention. Does not recall the exact date. Has asked me for my name repeatedly. May be related to hepatic encephalopathy. Ammonia at 84. Start lactulose every 6 hours and titrate to 2-3 bowel movements per day Start rifaximin 550 mg twice daily. (8) Coagulopathy: Plan DVT prophylaxis: SCDs only. High risk of bleeding given deranged INR 2.4 He would like to be full code for now. States that he has been having a lot of financial issues and has a lot of thinking to do with regards to his own and his elderly 's disposition. He he would like to take some time to think about his CODE STATUS and overall goals of care. 05/04--Labs reviewed this morning, shows a WBC count 10.3, hemoglobin dropped to 8.7, sodium 120, platelets 82 dropped to 54, creatinine stable at 2.7, total bili 9, UA positive, U tox negative, respiratory panel negative. Continue IV Zosyn, octreotide and albumin infusion for now. Continue midodrine, lactulose and rifaximin. Will follow-up ascitic fluid studies, blood culture, urine culture. Plan for PICC line today due to difficult IV access and need for daily labs. Follow-up case management for discharge planning. Check ECHO. 05/05--Labs reviewed this morning, shows hemoglobin 8.7, stable, platelets 52, stable, INR trended down to 2.2, creatinine trended down to 1.9, potassium 5.8, total bili trended down to 8.2, 1 out of 4 blood cultures positive for staph and also found to have positive UA. Will continue IV Zosyn, IV albumin and IV octreotide for now. Labs improving as compared to admission. Echo showed Normal left ventricular size and systolic function, EF 60%.no regional wall motion abnormalities. Mild aortic valve regurgitation. Minimally thickened aortic valve. Trace to mild mitral valve regurgitation. Moderate tricuspid valve regurgitation. Estimated pulmonary artery peak systolic pressure 50 mmHg There is no pericardial effusion. There are no intracardiac masses. Will monitor him in ICU for a day and transfer him to [facility] in a.m. Needs inpatient treatment for IV antibiotics given UTI and bacteremia. Follow-up social work for discharge planning. Attestations 2 Medical Necessity Statement*: He needs continued hospitalization crossing 2 midnights for management of decompensated liver cirrhosis and hepatorenal syndrome, UTI and bacteremia. Time Spent in Patient Care: 20minutes Coding Level of Care Code Acute Code for [facility] Fwd Diagnoses Cirrhosis K74.60 Hepatorenal syndrome K76.7 Hyperkalemia E87.5 Acute kidney failure N17.9 Ascites R18.8 Portal hypertension K76.6 Hepatic encephalopathy K76.82 Coagulopathy D68.9 Time Spent (min) 20
[2024-05-06] VITALS (35 sets, daily range): BP systolic 98–136; BP diastolic 65–96; PULSE 88–111; RESP 12–22; TEMP 36.4–36.8; O2SAT 88–97; BMI 25.4
[2024-05-06] MEDS: albumin 25 G/100 ML BAG 60 G IV (03:22)
[2024-05-06] MEDS: piperacillin-tazobactam 3.375 GM in sodium chloride 0.9% (plus) 50 ML IV ×3 (03:22→19:42)
[2024-05-06] MEDS: ondansetron 2 mg/ML SDV 2 mL 4 MG IVP (03:23)
[2024-05-06 03:32] LABS: Basophils % 0.1 %; Eosinophils # 0.1 10^3/uL (0.0-0.8); Eosinophils % 1.5 %; Hematocrit 25.8 % (37-53); Lymphocytes # 0.5 10^3/uL (0.8-4.8); Lymphocytes % 7.4 %; Mean Corpuscular HGB Conc 34.9 g/dL (30-55); Mean Corpuscular Volume 103.2 fl (82-101); Mean Platelet Volume 12.2 fL (7.4-10.4); Monocytes # 0.8 10^3/uL (0.2-0.9); Monocytes % 10.7 %; Neutrophils # 5.72 10^3/uL (1.8-7.7); Neutrophils % 78.9 %; Nucleated Red Blood Cells % 0 %; Platelet Count 48 10^3/cmm (157-399); Red Cell Distribution Width 16.9 % (12.1-15.1); White Blood Count 7.26 10^3/uL (3.29-11.43)
[2024-05-06 03:55] LABS: Albumin Level 2.7 g/dL (3.5-5.2); Alkaline Phosphatase 89 U/L (40-130); Blood Urea Nitrogen 40 mg/dL (6-20); Carbon Dioxide 22 mmol/L (22-29); Chloride 97 mmol/L (98-107); Creatinine Clr Calc Pharmacy 95.8139; Globulin 3.3 g/dL (1.3-4.6); Glomerular Filtration Rate 77.6 mL/min (90-130); Glucose 205 mg/dL (65-115); Osmolality Calculated 284 mOsm/kg (285-295); Sodium 129 mmol/L (136-145)
[2024-05-06 03:58] LABS: Alanine Aminotransferase 57 U/L (0-41); Aspartate Amino Transferase 149 U/L (0-40)
[2024-05-06 03:59] LABS: Total Bilirubin 8.5 mg/dL (0.15-1.2)
--- NOTE | 2024-05-06 04:27 | PC.NURSE ---
Output: Unable measure accurate outputs, patient voided in bed multiple times.
[2024-05-06] MEDS: rifaximin 200 mg Tablet 600 MG PO ×2 (10:44→17:33)
[2024-05-06] MEDS: midodrine 5 mg TABLET PO ×3 (10:44→20:41)
[2024-05-06] MEDS: pantoprazole 40 mg SDV IVP ×2 (10:46→22:06)
[2024-05-06] MEDS: morphine 4 mg/mL SDV 1 mL 2 MG IVP ×2 (11:51→17:19)
--- NOTE | 2024-05-06 11:51 | P.PN_ITS ---
Subjective 2 Subjective: No acute overnight events noted. Seen him at bedside this morning complaining of frequent diarrhea, likely secondary to lactulose and soreness in the perianal area. Requesting to stop lactulose and wanting to go home. Medications: Reviewed: Yes Vitals/I&O/Wt Last Vital Signs Temp 97.6 F 05/06/24 08:00 Pulse 93 05/06/24 10:00 Resp 12 05/06/24 10:00 BP 125/80 05/06/24 10:00 Pulse Ox 94 05/06/24 09:00 O2 Del Method Room Air 05/06/24 07:41 O2 Flow Rate 2 05/05/24 08:21 05/05/24 05/06/24 05/06/24 22:59 06:59 14:59 Intake Total 150 / 1241 250.663 / 1491.663 340.832 / 340.832 Output Total 550 / 550 200 / 750 250 / 250 Balance -400 / 691 50.663 / 741.663 90.832 / 90.832 Weight last 48 hrs Weight 85.321 kg Weight 85.321 kg Weight 86.5 kg Weight 83.824 kg Physical Exam 2 Narrative: General: No acute distress, AO x3 HEENT: PERRLA, pupils bilaterally equal and reactive, icterus+ Chest: Normal vesicular breath sounds CVS: S1-S2 regular, no murmurs, no tachycardia, no gallops, no rubs Abdomen: Soft, distended, bowel sounds present, slightly tender on the right side Neuro: No focal deficits, no facial deformity, AO x3, power 5/5 in all limbs Data 05/06/24 03:15 05/06/24 03:15 Micro: Microbiology 05/03/24 22:58 Urine Culture - Final Urine,Clean Catch 05/03/24 15:00 Bacterial Antigens - Final Urine Kidney A&P Assessment and plan (1) Cirrhosis: Patient with recently diagnosed alcohol-related liver cirrhosis. With T. bili of 10, creatinine of 2.5, INR 2.4, sodium 119, MELD Na score of 36 correlating with 52% mortality. Signs of decompensated cirrhosis currently include portal hypertension, ascites, anasarca. (2) Hepatorenal syndrome: Creatinine worsened from 0.8 on May 01 to 2.5 currently. Likely related to hepatorenal syndrome Start octreotide infusion Midodrine 5 mg 3 times daily Albumin infusion every 8 hours scheduled Closely monitor urine output and kidney function with above interventions. (3) Hyperkalemia: Upon arrival potassium at 6.1 Likely related to acute kidney failure Status post receiving insulin dextrose nebulization. Repeat potassium at 5.3 Repeat with a.m. labs (4) Acute kidney failure: Likely hepatorenal syndrome (5) Ascites: From decompensated cirrhosis. Status post paracentesis in the emergency room today. Added acetic fluid cell count, fluid analysis, protein albumin cytology, Gram stain and culture to fluid already obtained this afternoon. Will await results. (6) Portal hypertension: Related to cirrhosis (7) Hepatic encephalopathy: Patient is slightly disoriented. He did not realize he was in [place] until brought to his attention. Does not recall the exact date. Has asked me for my name repeatedly. May be related to hepatic encephalopathy. Ammonia at 84. Start lactulose every 6 hours and titrate to 2-3 bowel movements per day Start rifaximin 550 mg twice daily. (8) Coagulopathy: Plan DVT prophylaxis: SCDs only. High risk of bleeding given deranged INR 2.4 He would like to be full code for now. States that he has been having a lot of financial issues and has a lot of thinking to do with regards to his own and his elderly 's disposition. He he would like to take some time to think about his CODE STATUS and overall goals of care. 05/04--Labs reviewed this morning, shows a WBC count 10.3, hemoglobin dropped to 8.7, sodium 120, platelets 82 dropped to 54, creatinine stable at 2.7, total bili 9, UA positive, U tox negative, respiratory panel negative. Continue IV Zosyn, octreotide and albumin infusion for now. Continue midodrine, lactulose and rifaximin. Will follow-up ascitic fluid studies, blood culture, urine culture. Plan for PICC line today due to difficult IV access and need for daily labs. Follow-up case management for discharge planning. Check ECHO. 05/05--Labs reviewed this morning, shows hemoglobin 8.7, stable, platelets 52, stable, INR trended down to 2.2, creatinine trended down to 1.9, potassium 5.8, total bili trended down to 8.2, 1 out of 4 blood cultures positive for staph and also found to have positive UA. Will continue IV Zosyn, IV albumin and IV octreotide for now. Labs improving as compared to admission. Echo showed Normal left ventricular size and systolic function, EF 60%.no regional wall motion abnormalities. Mild aortic valve regurgitation. Minimally thickened aortic valve. Trace to mild mitral valve regurgitation. Moderate tricuspid valve regurgitation. Estimated pulmonary artery peak systolic pressure 50 mmHg There is no pericardial effusion. There are no intracardiac masses. Will monitor him in ICU for a day and transfer him to [facility] in a.m. Needs inpatient treatment for IV antibiotics given UTI and bacteremia. Follow-up social work for discharge planning. 05/06--labs reviewed this morning, hepatorenal syndrome resolving with creatinine of 1.0 and potassium of 5.0. Will discontinue albumin and octreotide infusion. Recheck labs in a.m. Hemoglobin stable at 9.0, sodium 129 total bili trending down to 8.5 with persistent elevation of LFTs, platelets 48. He is doing better and feeling better, discussed with case management for possible discharge on Tuesday. Continue current management for decompensated liver cirrhosis, UTI and bacteremia, follow-up final blood cultures. Attestations 2 Medical Necessity Statement*: Anticipating discharge in 1 to 2 days Time Spent in Patient Care: 20minutes Coding Level of Care Code Acute Code for [facility] Diagnoses Cirrhosis K74.60 Hepatorenal syndrome K76.7 Hyperkalemia E87.5 Acute kidney failure N17.9 Ascites R18.8 Portal hypertension K76.6 Hepatic encephalopathy K76.82 Coagulopathy D68.9 Time Spent (min) 20
[2024-05-06] MEDS: acetaminophen 325 mg Tablet 650 MG PO (13:34)
--- NOTE | 2024-05-06 17:44 | PC.NURSE ---
173 Called report to Judith on [place], to move patient to room [facility]. Transfered patient via w/c with shirt from home. 1754 Took patient and belongings to [facility], no further c/o's, assisted patient into bed and gave call light.
--- NOTE | 2024-05-06 19:46 | PC.NURSE ---
Pt calls this nurse into room asking for chewing tobacco. This nurse informed pt that we do not use tobacco products in the hospital. A nicotine patch was offered and the pt declined and verbalized understanding to not use tobacco in the hospital. No further need expressed at this time.
[2024-05-07] VITALS (15 sets, daily range): BP systolic 89–156; BP diastolic 53–100; PULSE 87–110; RESP 14–20; TEMP 36.4–36.6; O2SAT 90–93; BMI 25.7
[2024-05-07] MEDS: diphenhydrAMINE 25 mg Capsule PO (01:27)
[2024-05-07] MEDS: piperacillin-tazobactam 3.375 GM in sodium chloride 0.9% (plus) 50 ML IV ×2 (03:14→11:43)
[2024-05-07 05:36] LABS: Basophils % 0.4 %; Eosinophils # 0.1 10^3/uL (0.0-0.8); Eosinophils % 1.2 %; Hematocrit 29.5 % (37-53); Lymphocytes # 0.8 10^3/uL (0.8-4.8); Lymphocytes % 9.9 %; Mean Corpuscular HGB Conc 35.3 g/dL (30-55); Mean Corpuscular Hemoglobin 36.1 pg (27-33); Mean Corpuscular Volume 102.4 fl (82-101); Mean Platelet Volume 12.3 fL (7.4-10.4); Monocytes # 0.9 10^3/uL (0.2-0.9); Monocytes % 10.8 %; Neutrophils # 6.06 10^3/uL (1.8-7.7); Neutrophils % 73.8 %; Nucleated Red Blood Cells % 0 %; Platelet Count 43 10^3/cmm (157-399); Red Blood Count 2.88 10^6/uL (3.85-5.65); Red Cell Distribution Width 16.5 % (12.1-15.1); White Blood Count 8.21 10^3/uL (3.29-11.43)
[2024-05-07 05:42] LABS: INR 2.75 (0.8-1.2)
[2024-05-07 05:50] LABS: Alanine Aminotransferase 63 U/L (0-41); Albumin Level 2.7 g/dL (3.5-5.2); Alkaline Phosphatase 75 U/L (40-130); Blood Urea Nitrogen 32 mg/dL (6-20); Calcium 7.1 mg/dL (8.5-10.5); Carbon Dioxide 24 mmol/L (22-29); Chloride 95 mmol/L (98-107); Creatinine Clr Calc Pharmacy 137.2939; Globulin 3.8 g/dL (1.3-4.6); Glomerular Filtration Rate 117.1 mL/min (90-130); Glucose 125 mg/dL (65-115); Osmolality Calculated 274 mOsm/kg (285-295); Sodium 128 mmol/L (136-145); Total Protein 6.5 g/dL (6.6-8.7)
[2024-05-07 05:57] LABS: Anion Gap 13.5 (5-19); Aspartate Amino Transferase 116 U/L (0-40); Potassium 4.5 mmol/L (3.5-5.1)
[2024-05-07] MEDS: midodrine 5 mg TABLET PO ×3 (07:55→21:04)
[2024-05-07] MEDS: rifaximin 200 mg Tablet 600 MG PO ×2 (07:55→17:25)
[2024-05-07] MEDS: morphine 4 mg/mL SDV 1 mL 2 MG IVP ×2 (07:58→18:05)
[2024-05-07] MEDS: nicotine 2 mg Gum BUCCAL (08:23)
[2024-05-07] MEDS: pantoprazole 40 mg SDV IVP ×2 (10:38→23:57)
--- NOTE | 2024-05-07 12:08 | P.PN_ITS ---
Subjective 2 Subjective: Patient is stating that he would opt for hospice care He is contemplating between home versus SNF Discharge plan nurse notified Patient is anxious about his who is 84 years old Patient does understand hospice care, all questions were answered to his satisfaction, Vitals/I&O/Wt Last Vital Signs Temp 97.7 F 05/07/24 11:58 Pulse 99 05/07/24 11:58 Resp 19 H 05/07/24 11:58 BP 114/74 05/07/24 11:58 Pulse Ox 93 05/07/24 11:58 O2 Del Method Room Air 05/07/24 11:58 O2 Flow Rate 2 05/05/24 08:21 05/06/24 05/07/24 05/07/24 22:59 06:59 14:59 Intake Total 50 / 440.832 50 / 490.832 50 / 50 Output Total 200 / 600 100 / 700 275 / 275 Balance -150 / -159.168 -50 / -209.168 -225 / -225 Weight last 48 hrs Weight 86.092 kg Weight 87.118 kg Weight 85.321 kg Weight 85.321 kg Physical Exam 2 Narrative: Patient is sitting in a chair Distended abdomen No sign of peritonitis Scleral icterus Hemodynamically stable at this point Currently on room air Nonfocal neuroexam Data 05/07/24 05:20 05/07/24 05:20 Micro: Microbiology 05/03/24 18:45 Blood Culture - Preliminary Blood Staphylococcus xylosus 05/03/24 22:58 Urine Culture - Final Urine,Clean Catch A&P Assessment and plan (1) Coagulopathy: (2) Hyponatremia: (3) Cirrhosis: (4) Portal hypertension: (5) Hepatic encephalopathy: (6) Ascites: (7) Acute kidney failure: Plan Alcohol-related liver cirrhosis Hepatorenal syndrome: Resolved Hypervolemic hyponatremia: Sodium stable at 128 Abnormal transaminases: MELD Na SCORE :31 Guarded prognosis Pt requesting for Hospice care Will remove PICC Line before dc Aspiration pneumonia? Continue antibiotics however I will switch to p.o. regimen instead of IV Attestations 2 Medical Necessity Statement*: dc today vs dylan Diagnoses Coagulopathy D68.9 Hyponatremia E87.1 Cirrhosis K74.60 Portal hypertension K76.6 Hepatic encephalopathy K76.82 Ascites R18.8 Acute kidney failure N17.9
[2024-05-07] MEDS: amoxicillin-clav 875-125 mg Tablet 1 TAB PO (17:25)
--- NOTE | 2024-05-07 22:28 | PC.NURSE ---
patient in bed resting with eyes open, assessment done at this time. skin very jaundiced, eyes jaundiced, skin on bilateral lower extremeties cold to touch, extra blankets provided to patient. abdomen distended and hard to touch. patient has no complaints of pain at this time.
[2024-05-08] VITALS (11 sets, daily range): BP systolic 111–139; BP diastolic 77–84; PULSE 82–93; RESP 16–90; TEMP 36.4–36.8; O2SAT 90–94; BMI 26.1
[2024-05-08] MEDS: morphine 4 mg/mL SDV 1 mL 2 MG IVP ×4 (00:21→21:40)
[2024-05-08] MEDS: midodrine 5 mg TABLET PO ×3 (07:50→21:40)
[2024-05-08] MEDS: rifaximin 200 mg Tablet 600 MG PO ×2 (07:51→17:34)
[2024-05-08] MEDS: amoxicillin-clav 875-125 mg Tablet 1 TAB PO ×2 (07:53→17:34)
--- NOTE | 2024-05-08 09:44 | PM.DCS ---
Discharge Providers Date of Admission: 05/03/24 20:21 Date of Discharge: May 08, 2024 Attending Provider at Admission: Fortino Moscoso MD Attending Provider at Discharge: Yovanny Campuzano MD Primary Care Provider: Beni Kidd MD Diagnoses at Discharge Discharge Diagnosis (1) Coagulopathy: Status: Acute (2) Hyponatremia: Status: Acute (3) Cirrhosis: Status: Acute (4) Portal hypertension: Status: Acute (5) Hepatic encephalopathy: Status: Acute (6) Ascites: Status: Acute (7) Acute kidney failure: Status: Acute Reason for Visit Reason for Visit: abd pain, n, liver failure Hospital Course Hospital Course Donte Saini is a 54 year old male with recent diagnosis of liver cirrhosis who was recently in the emergency room on May 01, 2024 with chief complaints of abdominal pain. His records from [facility] were reviewed at that time, MELD score was 32, at that point patient had stated he does not want any treatment and wished to go home to take care of his elderly . He returns to the emergency room today with chief complaints of worsening abdominal pain, generalized weakness which is worsening and overall feeling unwell Patient was hospitalized for worsening creatinine there was concern for hepatorenal syndrome, he was given midodrine octreotide along albumin which improved his creatinine, status post paracentesis 7 L removed, hepatic encephalopathy improved with lactulose and rifaximin, hyperkalemia improved as well with insulin and hyperkalemia cocktail, patient has decided to change his CODE STATUS to hospice care at home, patient does not have any insurance he was given option to self-pay to go to a [place] [facility] care facility but he is not able to afford at this point. Patient is being discharged on hospice care, his MELD score is above 35 Secondary to low blood pressure I would only put him on low-dose spironolactone for now along midodrine and reluctant to add Lasix at this point Physical Exam Narrative: Anasarca, scleral icterus Hypervolemic Awake and alert Hemodynamically stable for now Discharge Data Studies Completed and Pending Completed Studies During Hospitalization Category Date Time Status CXRP [XR chest 1V portable [id number]] Routine Exams 05/04/24 12:03 Completed XR chest 1V portable [id number] Stat Exams 05/03/24 14:45 Completed CV. echo complete* [id number] Stat Ultrasound 05/04/24 12:22 Com[place] paracentesis abd w [id number] Stat Ultrasound 05/03/24 15:14 Completed Pending at discharge Category Date Time Status Blood Culture Stat Lab 05/03/24 20:35 Results Fibrinogen Degradation Product Routine Lab 05/03/24 20:49 Received Radiology Impressions Paracentesis Ultrasound 05/03/24 15:14 IMPRESSION: Uncomplicated ultrasound-guided paracentesis. Removal of 7500 cc Chest X-Ray 05/04/24 12:03 IMPRESSION: 1. Right-sided PICC line in satisfactory position. 2. Atelectasis and/or infiltrate in the LEFT lower lobe and small LEFT basal pleural effusion. Laboratory Results WBC 8.21 10^3/uL (3.29-11.43) 05/07/24 05:20 RBC 2.88 10^6/uL (3.85-5.65) L 05/07/24 05:20 Hgb 10.40 g/dL (11.27-16.99) L 05/07/24 05:20 Hct 29.5 % (37-53) L 05/07/24 05:20 MCV 102.4 fl (82-101) H 05/07/24 05:20 MCH 36.1 pg (27-33) H 05/07/24 05:20 MCHC 35.3 g/dL (30-55) 05/07/24 05:20 RDW 16.5 % (12.1-15.1) H 05/07/24 05:20 Plt Count 43 10^3/cmm (157-399) L 05/07/24 05:20 MPV 12.3 fL (7.4-10.4) H 05/07/24 05:20 Neut % (Auto) 73.8 % 05/07/24 05:20 Lymph % (Auto) 9.9 % 05/07/24 05:20 [place] % (Auto) 10.8 % 05/07/24 05:20 Eos % (Auto) 1.2 % 05/07/24 05:20 Baso % (Auto) 0.4 % 05/07/24 05:20 Neut # (Auto) 6.06 10^3/uL (1.8-7.7) 05/07/24 05:20 Lymph # (Auto) 0.8 10^3/uL (0.8-4.8) 05/07/24 05:20 [place] # (Auto) 0.9 10^3/uL (0.2-0.9) 05/07/24 05:20 Eos # (Auto) 0.1 10^3/uL (0.0-0.8) 05/07/24 05:20 Baso # (Auto) 0.0 10^3/uL (0.0-0.1) 05/07/24 05:20 Nucleated RBC % (auto) 0 % 05/07/24 05:20 Nucleated RBCs # 0.0 /100WBC 05/07/24 05:20 PT 30.10 SECONDS (12.1-14.9) H 05/07/24 05:20 INR 2.75 (0.8-1.2) H 05/07/24 05:20 APTT 44.8 SECONDS (23.9-36.7) H 05/03/24 20:35 Fibrinogen 260 mg/dL (174-498) 05/03/24 20:35 D-Dimer 12.65 ug/mLFEU (0-0.59) H 05/03/24 20:35 Sodium 128 mmol/L (136-145) L 05/07/24 05:20 Potassium 4.5 mmol/L (3.5-5.1) 05/07/24 05:20 Chloride 95 mmol/L (98-107) L 05/07/24 05:20 Carbon Dioxide 24 mmol/L (22-29) 05/07/24 05:20 Anion Gap 13.5 (5-19) 05/07/24 05:20 BUN 32 mg/dL (6-20) H 05/07/24 05:20 Creatinine 0.7 mg/dL (0.7-1.2) 05/07/24 05:20 GFR Calculation 117.1 mL/min (90-130) 05/07/24 05:20 Glucose 125 mg/dL (65-115) H 05/07/24 05:20 Estimat Average Glucose 85 05/04/24 05:05 Hemoglobin A1c 4.6 % (4.0-6.0) 05/04/24 05:05 Calculated Osmolality 274 mOsm/kg (285-295) L 05/07/24 05:20 Lactic Acid 2.4 mmol/L (0.5-2.2) H 05/03/24 18:45 Lactic Acid (Sepsis) 2.8 mmol/L (0.5-2.2) H 05/03/24 20:35 Calcium 7.1 mg/dL (8.5-10.5) L 05/07/24 05:20 Phosphorus 6.7 mg/dL (2.5-4.5) H 05/04/24 05:05 Magnesium 2.0 mg/dL (1.7-2.3) 05/04/24 05:05 Iron 28 ug/dL (59-158) L 05/03/24 18:45 TIBC 100 mcg/dl 05/03/24 18:45 % Saturation 28.0 % (20-50) 05/03/24 18:45 Unsat Iron Binding 72 ug/dL (112-347) L 05/03/24 18:45 Total Bilirubin 11.0 mg/dL (0.15-1.2) H* 05/07/24 05:20 AST 116 U/L (0-40) H 05/07/24 05:20 ALT 63 U/L (0-41) H 05/07/24 05:20 Alkaline Phosphatase 75 U/L (40-130) 05/07/24 05:20 Ammonia 84 umol/L (16-60) H 05/03/24 18:45 Total Protein 6.5 g/dL (6.6-8.7) L 05/07/24 05:20 Albumin 2.7 g/dL (3.5-5.2) L 05/07/24 05:20 Globulin 3.8 g/dL (1.3-4.6) 05/07/24 05:20 Triglycerides 76 mg/dL (0-150) 05/04/24 05:05 Cholesterol 71 mg/dL (0-200) 05/04/24 05:05 LDL Cholesterol, Calc 45 mg/dL (50-129) L 05/04/24 05:05 HDL Cholesterol 11 mg/dL (60-100) L 05/04/24 05:05 LDL/HDL Ratio 4.09 RATIO (0.00-3.22) H 05/04/24 05:05 Cholesterol/HDL Ratio 6.45 mg/dL (1.0-5.00) H 05/04/24 05:05 Lipase 32 U/L (13-60) 05/03/24 18:45 Vitamin B12 > 2000 pg/mL (232-1245) H 05/03/24 18:45 Folate 6.1 ng/mL (4.5-32.2) 05/04/24 05:05 Procalcitonin 4.44 ng/mL (0-0.5) H 05/04/24 05:05 TSH 1.08 uIU/mL (0.27-4.20) 05/03/24 20:35 Urine Color Other (Yellow) A 05/03/24 22:58 Urine Appearance Cloudy (CLEAR) A 05/03/24 22:58 Urine pH 5.0 (5-7) 05/03/24 22:58 Ur Specific [place] 1.047 (1.005-1.030) H 05/03/24 22:58 Urine Protein 1+ (Negative) A 05/03/24 22:58 Urine Glucose (UA) Negative (Normal) 05/03/24 22:58 Urine Ketones Negative (Negative) 05/03/24 22:58 Urine Blood Negative (Negative) 05/03/24 22:58 Urine Nitrate Positive (Negative) A 05/03/24 22:58 Urine Bilirubin 3+ (Negative) H 05/03/24 22:58 Urine Urobilinogen 1.0 mg/dL (Negative) 05/03/24 22:58 Ur Leukocyte Esterase 2+ (Negative) A 05/03/24 22:58 Urine RBC 0-4 /hpf (0-2) H 05/03/24 22:58 Urine WBC 0-4 /hpf (0-5) H 05/03/24 22:58 Ur Squamous Epith Cells 0-4 /hpf (0-5) H 05/03/24 22:58 Calcium Oxalate Crystal Rare /hpf 05/03/24 22:58 Amorphous Sediment Not Reportable 05/03/24 22:58 Urine Bacteria 3+ /hpf (NONE) H 05/03/24 22:58 Hyaline Casts 0-4 /lpf H 05/03/24 22:58 Coarse Granular Casts 0-4 /lpf H 05/03/24 22:58 Nasal MRSA (PCR) Not detected (Negative) 05/03/24 23:37 Urine Opiates Screen Negative ng/mL (Negative) 05/03/24 15:00 Ur Barbiturates Screen Negative ng/mL (Negative) 05/03/24 15:00 Ur Phencyclidine Scrn Negative ng/mL (Negative) 05/03/24 15:00 Ur Amphetamines Screen Negative ng/mL (Negative) 05/03/24 15:00 U Benzodiazepines Scrn Negative ng/mL (Negative) 05/03/24 15:00 Urine Cocaine Screen Negative ng/mL (Negative) 05/03/24 15:00 U Marijuana (THC) Screen Negative ng/mL (Negative) 05/03/24 15:00 Ethyl Alcohol < 10 mg/dL (0-10) 05/03/24 18:45 Coronavirus (PCR) Negative (Negative) 05/03/24 15:40 Influenza A (PCR) Negative (Negative) 05/03/24 15:40 Influenza Type B (PCR) Negative (Negative) 05/03/24 15:40 RSV (PCR) Negative (Negative) 05/03/24 15:40 Vitals Last Vital Signs Temp 98.2 F 05/08/24 08:00 Pulse 90 05/08/24 08:00 Resp 90 H 05/08/24 08:00 BP 123/84 05/08/24 08:00 Pulse Ox 91 05/08/24 08:00 O2 Del Method Room Air 05/08/24 04:00 O2 Flow Rate 2 05/05/24 08:21 Discharge Plan Discharge Patient Disposition: Hospice - Home Condition: Critical Prescriptions: New amoxicillin-pot clavulanate 875-125 mg Tablet 1 tab PO BID Qty: 10 0RF spironolactone 25 mg tablet 12.5 mg PO DAILY Qty: 60 2RF midodrine 5 mg Tablet 5 mg PO TID Qty: 90 1RF lactulose 20 gram/30 mL solution 20 g PO BID Qty: 1200 2RF Continued hydrocodone-acetaminophen 5-325 mg tablet 1 tab PO Q6H PRN (Reason: pain) Qty: 14 0RF ondansetron 4 mg tablet,disintegrating 4 mg PO Q6H PRN (Reason: nausea and vomiting) Qty: 14 0RF Discharge Orders: Discharge Order (Routine); Ordered 05/08/24 Ordered By: Yovanny Campuzano Referrals: Beni Kidd MD [Primary Care Provider] - Discharge Diet: Low Salt Discharge Attestations Time Spent in Discharge Care*: greater than 30 min Quality Metrics Clinical Quality Measures [ No reported AMI, CVA or VTE this stay] Coding Level of Care Code Acute Code for [facility] Diagnoses Coagulopathy D68.9 Hyponatremia E87.1 Cirrhosis K74.60 Portal hypertension K76.6 Hepatic encephalopathy K76.82 Ascites R18.8 Acute kidney failure N17.9
--- NOTE | 2024-05-08 11:25 | P.PN_ITS ---
Subjective 2 Subjective: No overnight events Trying to find appropriate disposition plan Vitals/I&O/Wt Last Vital Signs Temp 97.5 F L 05/09/24 04:00 Pulse 86 05/09/24 04:00 Resp 18 05/09/24 04:00 BP 125/84 05/09/24 04:00 Pulse Ox 91 05/09/24 04:00 O2 Del Method Nasal Cannula 05/08/24 16:00 O2 Flow Rate 2 05/05/24 08:21 05/08/24 05/09/24 05/09/24 22:59 06:59 14:59 Intake Total 540 / 1260 650 / 1910 Output Total 100 / 100 Balance 540 / 1260 550 / 1810 Weight last 48 hrs Weight 85.865 kg Weight 87.271 kg Weight 86.863 kg Weight 86.092 kg Physical Exam 2 Narrative: Supine Pleasant cooperative GCS 15 Nonfocal neuroexam Hemodynamically stable, Data 05/07/24 05:20 05/07/24 05:20 Micro: Microbiology 05/03/24 18:45 Blood Culture - Preliminary Blood Staphylococcus xylosus 05/03/24 20:35 Blood Culture - Final Blood NO GROWTH AFTER 5 DAYS A&P Assessment and plan (1) Coagulopathy: (2) Hyponatremia: (3) Cirrhosis: (4) Portal hypertension: (5) Hepatic encephalopathy: (6) Ascites: (7) Hepatorenal syndrome: (8) Acute kidney failure: (9) Hyperkalemia: Plan We are trying to find safe and appropriate disposition plan for the patient Will add low-dose spironolactone Blood pressure improved, creatinine stable Attestations 2 Medical Necessity Statement*: dc in 48 hrs Diagnoses Coagulopathy D68.9 Hyponatremia E87.1 Cirrhosis K74.60 Portal hypertension K76.6 Hepatic encephalopathy K76.82 Ascites R18.8 Hepatorenal syndrome K76.7 Acute kidney failure N17.9 Hyperkalemia E87.5
[2024-05-08] MEDS: pantoprazole 40 mg SDV IVP ×2 (11:59→23:43)
[2024-05-08] MEDS: haloperidol inj 5 mg/mL INJ 1 mL 1 MG IM (23:44)
--- NOTE | 2024-05-09 00:42 | PC.NURSE ---
patient agitated at this time, asking for his and stating he wanted to lay down in bed with her and that she is upstairs, and the nurses are feeding him bullshit. patient is here for end stage renal disease, is alert to person and place. his skin is very jaundiced, his eyes are jaundiced. his IV in his right ac space occluded at this time. IV catheter intact and and then covered with a 2x2 and paper tape. piic line to right upper arm lumens flushed. dr notified in regards to agitation, IM haldol ordered, nurse administered in right deltoid. patient tolerated well. patient refuses to keep telementry on. nurse emptied 100ml of dark yellow/orange urine from urinal. will reassess agitation in an hour
[2024-05-09] MEDS: haloperidol inj 5 mg/mL INJ 1 mL 2 MG IM (02:46)
--- NOTE | 2024-05-09 02:49 | PC.NURSE ---
patient agitated with nursing staff at this time. dr clark notified and haldol 2mg IM ordered. IM injection given per nurse. patient tolerated well. will reassess agitation in an hour
[2024-05-09 04:00] VITALS: BP 125/84; PULSE 86; RESP 18; TEMP 36.4; O2SAT 91
[2024-05-09 04:03] LABS: Acinetobacter baumannii Not Detected (NOT DETECT); Bacteroides fragilis Not Detected (NOT DETECT); Citrobacter Not Detected (NOT DETECT); Cronobacter sakazakii Not Detected (NOT DETECT); Enterobacter cloacae complex Not Detected (NOT DETECT); Enterobacter non cloacae Not Detected (NOT DETECT); Fusobacterium necrophorum Not Detected (NOT DETECT); Fusobacterium nucleatum Detected (NOT DETECT); Haemophilus influenzae Not Detected (NOT DETECT); Klebsiella pneumoniae group Not Detected (NOT DETECT); Morganella morganii Not Detected (NOT DETECT); Neisseria meningitidis Not Detected (NOT DETECT); Pan Candida Not Detected (NOT DETECT); Pan Gram-Positive Not Detected (NOT DETECT); Proteus mirabilis Not Detected (NOT DETECT); Pseudomonas aeruginosa Not Detected (NOT DETECT); Salmonella Not Detected (NOT DETECT); Serratia Not Detected (NOT DETECT); Serratia marcescens Not Detected (NOT DETECT); Stenotrophomonas maltophilia Not Detected (NOT DETECT)
[2024-05-09 08:00] VITALS: BP 138/91; PULSE 83; RESP 16; TEMP 36.8; O2SAT 94
[2024-05-09] MEDS: rifaximin 200 mg Tablet 600 MG PO ×2 (08:21→21:53)
[2024-05-09] MEDS: midodrine 5 mg TABLET PO ×3 (08:22→21:54)
[2024-05-09] MEDS: amoxicillin-clav 875-125 mg Tablet 1 TAB PO ×2 (08:22→21:54)
[2024-05-09] MEDS: pantoprazole 40 mg SDV IVP (11:41)
[2024-05-09 12:00] VITALS: BP 130/80; PULSE 89; RESP 18; TEMP 36.8; O2SAT 91
--- NOTE | 2024-05-09 13:47 | P.PN_ITS ---
Subjective 2 Subjective: No overnight events There has been a delay in discharge planning because we are trying to get appropriate caregiver for the patient before we plan to discharge the patient from the hospital with his multiple underlying conditions Patient is not able to self finance half-way at this point We are trying to get in touch with his , special education case manager call the police department to do a wellness check on his today Vitals/I&O/Wt Last Vital Signs Temp 98.2 F 05/09/24 12:00 Pulse 89 05/09/24 12:00 Resp 18 05/09/24 12:00 BP 130/80 05/09/24 12:00 Pulse Ox 91 05/09/24 12:00 O2 Del Method Room Air 05/09/24 12:00 O2 Flow Rate 2 05/05/24 08:21 05/08/24 05/09/24 05/09/24 22:59 06:59 14:59 Intake Total 540 / 1260 650 / 1910 360 / 360 Output Total 100 / 100 Balance 540 / 1260 550 / 1810 360 / 360 Weight last 48 hrs Weight 85.729 kg Weight 85.865 kg Weight 87.271 kg Weight 86.863 kg Physical Exam 2 Narrative: Scleral icterus Pleasant and cooperative Laying without discomfort Distended abdomen, nontender Currently on room air Hemodynamically stable Data 05/07/24 05:20 05/07/24 05:20 Micro: Microbiology 05/03/24 18:45 Blood Culture - Preliminary Blood Staphylococcus xylosus 05/03/24 20:35 Blood Culture - Final Blood NO GROWTH AFTER 5 DAYS A&P Assessment and plan (1) Hyponatremia: (2) Coagulopathy: (3) Cirrhosis: (4) Portal hypertension: (5) Hepatic encephalopathy: (6) Ascites: (7) Hepatorenal syndrome: (8) Acute kidney failure: (9) Hyperkalemia: Plan Liver cirrhosis Patient will need low-dose spironolactone and Lasix regimen if pressure stays stable To prevent hypotensive episode midodrine can be used which however is not a good long-term solution considering it side effects Patient is not able to do self finance for half-way placement, at this point we are trying to get appropriate discharge planning with a caregiver at home Once we have safe discharge plan for the patient he will be released from the hospital Patient wanted to consider hospice care, unfortunately at this point he is the caregiver of his which is his qualifying him to get hospice care Currently he is on regular diet Antibiotics changed to Augmentin Continue lactulose and rifaximin Attestations 2 Medical Necessity Statement*: Awaiting safe disposition plan Diagnoses Hyponatremia E87.1 Coagulopathy D68.9 Cirrhosis K74.60 Portal hypertension K76.6 Hepatic encephalopathy K76.82 Ascites R18.8 Hepatorenal syndrome K76.7 Acute kidney failure N17.9 Hyperkalemia E87.5
[2024-05-09 16:00] VITALS: BP 124/83; PULSE 77; RESP 18; TEMP 36.6; O2SAT 92
[2024-05-09 19:50] VITALS: BP 126/77; PULSE 95; RESP 19; TEMP 36.3; O2SAT 94
[2024-05-10] VITALS: BP 119/76; PULSE 96; RESP 17; TEMP 36.4; O2SAT 90
[2024-05-10] MEDS: pantoprazole 40 mg SDV IVP (00:36)
[2024-05-10 03:04] LABS: Fibrinogen Degradation Product 20 mcg/mL (LESS THAN 5)
[2024-05-10 04:00] VITALS: BP 115/75; PULSE 88; RESP 18; TEMP 36.5; O2SAT 92
[2024-05-10 08:00] VITALS: BP 100/61; PULSE 87; RESP 14; TEMP 36.8; O2SAT 92
[2024-05-10] MEDS: midodrine 5 mg TABLET PO (08:55)
[2024-05-10] MEDS: amoxicillin-clav 875-125 mg Tablet 1 TAB PO ×2 (08:55→18:25)
[2024-05-10] MEDS: rifaximin 200 mg Tablet 600 MG PO ×2 (08:55→18:24)
[2024-05-10] MEDS: spironolactone 25 mg Tablet 12.5 MG PO (08:55)
--- NOTE | 2024-05-10 10:48 | P.PN_ITS ---
Subjective 2 Subjective: Woman consult. During hospital sawblade without incident of the manage did not believe the thought of food around food volume without blood under her comfort Levaquin on. Cozaar self-care skills e.g. Problem 2 increased clinic increase quetiapine vitamin 15 medial side of optic level: Resolved. Gently. 0.67. Currently overall overloaded. Pathology was reviewed with currently as per the nursing staff patient was confused last night, I have added lactulose 3 times, patient is already getting rifaximin He has been switched to p.o. Augmentin from IV antibiotics We were able to send police to his house yesterday, case finishing machine adjuster was able to get in touch with her and his folk with the friend and his , it seems like home conditions are poor and hospice will not be able to accept him at this point, reportedly there is another person in their house who is alcoholic as well. Case management is working on getting GIUSEPPE approval which probably will need more detailed information before submission, we were not able to get a hold of his for about 2 to 3 days until Police Department was called to do a well visit check on his , patient is stating that he will not be able to afford finance his hospice or penitentiary care, Vitals/I&O/Wt Last Vital Signs Temp 98.3 F 05/10/24 08:00 Pulse 87 05/10/24 08:00 Resp 14 05/10/24 08:00 BP 100/61 05/10/24 08:00 Pulse Ox 92 05/10/24 08:00 O2 Del Method Room Air 05/10/24 08:00 O2 Flow Rate 2 05/05/24 08:21 05/09/24 05/10/24 05/10/24 22:59 06:59 14:59 Intake Total 480 / 960 240 / 240 Output Total 400 / 400 Balance -400 / 80 480 / 560 240 / 240 Weight last 48 hrs Weight 86.727 kg Weight 85.729 kg Weight 85.865 kg Physical Exam 2 Narrative: Scleral icterus Sitting in a chair Short attention span Low blood pressure Currently on room air Able to answer most of the questions Nonfocal neuroexam Abdomen distended nontender Emotionally labile S1, S2 Data 05/07/24 05:20 05/07/24 05:20 A&P Assessment and plan (1) Hyperkalemia: (2) Acute kidney failure: (3) Hepatorenal syndrome: (4) Ascites: (5) Hepatic encephalopathy: (6) Portal hypertension: (7) Cirrhosis: (8) Hyponatremia: (9) Coagulopathy: Plan Alcohol-related liver cirrhosis Stage II hepatic encephalopathy Added lactulose to rifaximin IV antibiotics has been switched to Augmentin Status post paracentesis, stop albumin at this point Low blood pressure related to underlying third spacing I would be very reluctant to add high dose of spironolactone or Lasix, for now just continue low-dose spironolactone MELD score is 40 with 71.3% risk of mortality within next 3 months. Patient carries guarded prognosis at this point, he is not interested in pursuing any medical or surgical treatment for his underlying recurrent ascites, he is requesting for hospice care, We have a challenging situation where patient is not able to financially support his hospice or penitentiary visit, counter caser diligently working to get more information to submit GIUSEPPE application to see if we can assist him in safe discharge from the hospital to a penitentiary. is 84 years old who is not able to take care of him at all Home condition seems to be poor. Attestations 2 Medical Necessity Statement*: Awaiting safe discharge planning Diagnoses Hyperkalemia E87.5 Acute kidney failure N17.9 Hepatorenal syndrome K76.7 Ascites R18.8 Hepatic encephalopathy K76.82 Portal hypertension K76.6 Cirrhosis K74.60 Hyponatremia E87.1 Coagulopathy D68.9
[2024-05-10] MEDS: lactulose oral liq 20 gm/30 mL UDC PO (11:16)
[2024-05-10 12:00] VITALS: BP 106/68; PULSE 78; RESP 14; TEMP 36.7; O2SAT 96
--- NOTE | 2024-05-10 14:12 | P.DS_ITS ---
Discharge Providers Date of Admission: 05/03/24 20:21 Date of Discharge: May 10, 2024 Attending Provider at Admission: Fortino Moscoso MD Attending Provider at Discharge: Yovanny Campuzano MD Primary Care Provider: Beni Kidd MD Diagnoses at Discharge Discharge Diagnosis (1) Hyperkalemia: Status: Acute (2) Acute kidney failure: Status: Acute (3) Hepatorenal syndrome: Status: Acute (4) Ascites: Status: Acute (5) Hepatic encephalopathy: Status: Acute (6) Portal hypertension: Status: Acute (7) Cirrhosis: Status: Acute (8) Hyponatremia: Status: Acute (9) Coagulopathy: Status: Acute Reason for Visit Reason for Visit: abd pain, n, liver failure Hospital Course Hospital Course Donte Saini is a 54 year old male with recent diagnosis of liver cirrhosis who was recently in the emergency room on May 01, 2024 with chief complaints of abdominal pain. His records from [facility] were reviewed at that time, MELD score was 32, at that point patient had stated he does not want any treatment and wished to go home to take care of his elderly . He returns to the emergency room 05/04 with chief complaints of worsening abdominal pain, generalized weakness which is worsening and overall feeling unwell Patient was hospitalized for worsening creatinine there was concern for hep atorenal syndrome, he was given midodrine octreotide along albumin which improved his creatinine, status post paracentesis 7 L removed, hepatic encephalopathy improved with lactulose and rifaximin, hyperkalemia improved as well with insulin and hyperkalemia cocktail, his MELD score has worsened to 40 with 70% mortality risk within next 3 months. Patient's mentation is fluctuant, he is able to carry conversation however very short attention span, he is confused about his stating that his currently works in this hospital, will look into detention option, bilingual case manager started working on his Medicaid approval, after multiple attempts we were able to get a hold of his significant other who is 80+ years old with dementia, there is a friend who is a neighbor Opal who is telling us that there is a nephew who is 6 years old, he lives with them, he is also a drinker, this friend Opal was present during a group conversation among our bilingual case manager Lisette, myself, Kristin. At this point is stating that she will like to bring Donte back home and try to take care of him, friend has concerns that Donte might start drinking again because nephew is also an alcoholic. We have clearly stated to the patient and his family that he has to quit alcohol otherwise he may deteriorate faster. We have provided multiple options to the patient and his family, first of all we have treated his current electrolyte abnormality, paracentesis has been done, patient has been started on low-dose spironolactone with midodrine. He is on rifaximin and lactulose. Patient is asking for hospice care, our bilingual case manager Wilmer worked diligently to arrange hospice at home and also got in touch with [facility] in case he would fail care at home and wanted to go with detention in future. We have also hotlined them and sent a notification to the state to inspect home conditions. Physical Exam Narrative: Scleral icterus Sitting in a chair Short attention span Low blood pressure Currently on room air Able to answer most of the questions Nonfocal neuroexam Abdomen distended nontender Emotionally labile S1, S2 Discharge Data Studies Completed and Pending Completed Studies During Hospitalization Category Date Time Status CXRP [XR chest 1V portable [id number]] Routine Exams 05/04/24 12:03 Completed XR chest 1V portable [id number] Stat Exams 05/03/24 14:45 Completed CV. echo complete* [id number] Stat Ultrasound 05/04/24 12:22 [place]acent[place]d w [id number] Stat Ultrasound 05/03/24 15:14 Completed Pending at discharge Category Date Time Status Blood Culture Stat Lab 05/03/24 20:35 Results CMP [Comprehensive Metabolic Panel] AM LABS Lab 05/11/24 04:00 Ordered Radiology Impressions Paracentesis Ultrasound 05/03/24 15:14 IMPRESSION: Uncomplicated ultrasound-guided paracentesis. Removal of 7500 cc Chest X-Ray 05/04/24 12:03 IMPRESSION: 1. Right-sided PICC line in satisfactory position. 2. Atelectasis and/or infiltrate in the LEFT lower lobe and small LEFT basal pleural effusion. Laboratory Results WBC 8.21 10^3/uL (3.29-11.43) 05/07/24 05:20 RBC 2.88 10^6/uL (3.85-5.65) L 05/07/24 05:20 Hgb 10.40 g/dL (11.27-16.99) L 05/07/24 05:20 Hct 29.5 % (37-53) L 05/07/24 05:20 MCV 102.4 fl (82-101) H 05/07/24 05:20 MCH 36.1 pg (27-33) H 05/07/24 05:20 MCHC 35.3 g/dL (30-55) 05/07/24 05:20 RDW 16.5 % (12.1-15.1) H 05/07/24 05:20 Plt Count 43 10^3/cmm (157-399) L 05/07/24 05:20 MPV 12.3 fL (7.4-10.4) H 05/07/24 05:20 Neut % (Auto) 73.8 % 05/07/24 05:20 Lymph % (Auto) 9.9 % 05/07/24 05:20 Lipscomb % (Auto) 10.8 % 05/07/24 05:20 Eos % (Auto) 1.2 % 05/07/24 05:20 Baso % (Auto) 0.4 % 05/07/24 05:20 Neut # (Auto) 6.06 10^3/uL (1.8-7.7) 05/07/24 05:20 Lymph # (Auto) 0.8 10^3/uL (0.8-4.8) 05/07/24 05:20 Lipscomb # (Auto) 0.9 10^3/uL (0.2-0.9) 05/07/24 05:20 Eos # (Auto) 0.1 10^3/uL (0.0-0.8) 05/07/24 05:20 Baso # (Auto) 0.0 10^3/uL (0.0-0.1) 05/07/24 05:20 Nucleated RBC % (auto) 0 % 05/07/24 05:20 Nucleated RBCs # 0.0 /100WBC 05/07/24 05:20 PT 30.10 SECONDS (12.1-14.9) H 05/07/24 05:20 INR 2.75 (0.8-1.2) H 05/07/24 05:20 APTT 44.8 SECONDS (23.9-36.7) H 05/03/24 20:35 Fibrinogen 260 mg/dL (174-498) 05/03/24 20:35 Fibrin Degrad Products 20 mcg/mL (LESS THAN 5) H 05/03/24 20:49 D-Dimer 12.65 ug/mLFEU (0-0.59) H 05/03/24 20:35 Sodium 128 mmol/L (136-145) L 05/07/24 05:20 Potassium 4.5 mmol/L (3.5-5.1) 05/07/24 05:20 Chloride 95 mmol/L (98-107) L 05/07/24 05:20 Carbon Dioxide 24 mmol/L (22-29) 05/07/24 05:20 Anion Gap 13.5 (5-19) 05/07/24 05:20 BUN 32 mg/dL (6-20) H 05/07/24 05:20 Creatinine 0.7 mg/dL (0.7-1.2) 05/07/24 05:20 GFR Calculation 117.1 mL/min (90-130) 05/07/24 05:20 Glucose 125 mg/dL (65-115) H 05/07/24 05:20 Estimat Average Glucose 85 05/04/24 05:05 Hemoglobin A1c 4.6 % (4.0-6.0) 05/04/24 05:05 Calculated Osmolality 274 mOsm/kg (285-295) L 05/07/24 05:20 Lactic Acid 2.4 mmol/L (0.5-2.2) H 05/03/24 18:45 Lactic Acid (Sepsis) 2.8 mmol/L (0.5-2.2) H 05/03/24 20:35 Calcium 7.1 mg/dL (8.5-10.5) L 05/07/24 05:20 Phosphorus 6.7 mg/dL (2.5-4.5) H 05/04/24 05:05 Magnesium 2.0 mg/dL (1.7-2.3) 05/04/24 05:05 Iron 28 ug/dL (59-158) L 05/03/24 18:45 TIBC 100 mcg/dl 05/03/24 18:45 % Saturation 28.0 % (20-50) 05/03/24 18:45 Unsat Iron Binding 72 ug/dL (112-347) L 05/03/24 18:45 Total Bilirubin 11.0 mg/dL (0.15-1.2) H* 05/07/24 05:20 AST 116 U/L (0-40) H 05/07/24 05:20 ALT 63 U/L (0-41) H 05/07/24 05:20 Alkaline Phosphatase 75 U/L (40-130) 05/07/24 05:20 Ammonia 84 umol/L (16-60) H 05/03/24 18:45 Total Protein 6.5 g/dL (6.6-8.7) L 05/07/24 05:20 Albumin 2.7 g/dL (3.5-5.2) L 05/07/24 05:20 Globulin 3.8 g/dL (1.3-4.6) 05/07/24 05:20 Triglycerides 76 mg/dL (0-150) 05/04/24 05:05 Cholesterol 71 mg/dL (0-200) 05/04/24 05:05 LDL Cholesterol, Calc 45 mg/dL (50-129) L 05/04/24 05:05 HDL Cholesterol 11 mg/dL (60-100) L 05/04/24 05:05 LDL/HDL Ratio 4.09 RATIO (0.00-3.22) H 05/04/24 05:05 Cholesterol/HDL Ratio 6.45 mg/dL (1.0-5.00) H 05/04/24 05:05 Lipase 32 U/L (13-60) 05/03/24 18:45 Vitamin B12 > 2000 pg/mL (232-1245) H 05/03/24 18:45 Folate 6.1 ng/mL (4.5-32.2) 05/04/24 05:05 Procalcitonin 4.44 ng/mL (0-0.5) H 05/04/24 05:05 TSH 1.08 uIU/mL (0.27-4.20) 05/03/24 20:35 Urine Color Other (Yellow) A 05/03/24 22:58 Urine Appearance Cloudy (CLEAR) A 05/03/24 22:58 Urine pH 5.0 (5-7) 05/03/24 22:58 Ur Specific Imperial 1.047 (1.005-1.030) H 05/03/24 22:58 Urine Protein 1+ (Negative) A 05/03/24 22:58 Urine Glucose (UA) Negative (Normal) 05/03/24 22:58 Urine Ketones Negative (Negative) 05/03/24 22:58 Urine Blood Negative (Negative) 05/03/24 22:58 Urine Nitrate Positive (Negative) A 05/03/24 22:58 Urine Bilirubin 3+ (Negative) H 05/03/24 22:58 Urine Urobilinogen 1.0 mg/dL (Negative) 05/03/24 22:58 Ur Leukocyte Esterase 2+ (Negative) A 05/03/24 22:58 Urine RBC 0-4 /hpf (0-2) H 05/03/24 22:58 Urine WBC 0-4 /hpf (0-5) H 05/03/24 22:58 Ur Squamous Epith Cells 0-4 /hpf (0-5) H 05/03/24 22:58 Calcium Oxalate Crystal Rare /hpf 05/03/24 22:58 Amorphous Sediment Not Reportable 05/03/24 22:58 Urine Bacteria 3+ /hpf (NONE) H 05/03/24 22:58 Hyaline Casts 0-4 /lpf H 05/03/24 22:58 Coarse Granular Casts 0-4 /lpf H 05/03/24 22:58 Nasal MRSA (PCR) Not detected (Negative) 05/03/24 23:37 Urine Opiates Screen Negative ng/mL (Negative) 05/03/24 15:00 Ur Barbiturates Screen Negative ng/mL (Negative) 05/03/24 15:00 Ur Phencyclidine Scrn Negative ng/mL (Negative) 05/03/24 15:00 Ur Amphetamines Screen Negative ng/mL (Negative) 05/03/24 15:00 U Benzodiazepines Scrn Negative ng/mL (Negative) 05/03/24 15:00 Urine Cocaine Screen Negative ng/mL (Negative) 05/03/24 15:00 U Marijuana (THC) Screen Negative ng/mL (Negative) 05/03/24 15:00 Ethyl Alcohol < 10 mg/dL (0-10) 05/03/24 18:45 Coronavirus (PCR) Negative (Negative) 05/03/24 15:40 Influenza A (PCR) Negative (Negative) 05/03/24 15:40 Influenza Type B (PCR) Negative (Negative) 05/03/24 15:40 RSV (PCR) Negative (Negative) 05/03/24 15:40 Vitals Last Vital Signs Temp 98.0 F 05/10/24 12:00 Pulse 78 05/10/24 12:00 Resp 14 05/10/24 12:00 BP 106/68 05/10/24 12:00 Pulse Ox 96 05/10/24 12:00 O2 Del Method Room Air 05/10/24 12:00 O2 Flow Rate 2 05/05/24 08:21 Discharge Plan Discharge Patient Disposition: Hospice - Home Condition: Critical Prescriptions: New amoxicillin-pot clavulanate 875-125 mg Tablet 1 tab PO BID Qty: 10 0RF spironolactone 25 mg tablet 12.5 mg PO DAILY Qty: 60 2RF thiamine HCl (vitamin B1) 100 mg tablet 100 mg PO DAILY Qty: 60 0RF midodrine 5 mg Tablet 5 mg PO TID Qty: 90 1RF lactulose 20 gram/30 mL solution 20 g PO BID Qty: 1200 2RF rifaximin 550 mg tablet 550 mg PO BID Qty: 60 5RF folic acid 1 mg tablet 1 mg PO DAILY Qty: 60 0RF Continued hydrocodone-acetaminophen 5-325 mg tablet 1 tab PO Q6H PRN (Reason: pain) Qty: 14 0RF ondansetron 4 mg tablet,disintegrating 4 mg PO Q6H PRN (Reason: nausea and vomiting) Qty: 14 0RF Discharge Orders: Discharge Order (Routine); Ordered 05/10/24 Ordered By: Yovanny Campuzano Referrals: Beni Kidd MD [Primary Care Provider] - Discharge Diet: Low Salt Discharge Attestations Time Spent in Discharge Care*: greater than 30 min Quality Metrics Clinical Quality Measures [ No reported AMI, CVA or VTE this stay] Coding Level of Care Code Acute Code for Chg Fwd Diagnoses Hyperkalemia E87.5 Acute kidney failure N17.9 Hepatorenal syndrome K76.7 Ascites R18.8 Hepatic encephalopathy K76.82 Portal hypertension K76.6 Cirrhosis K74.60 Hyponatremia E87.1 Coagulopathy D68.9
--- NOTE | 2024-05-10 15:51 | PC.SOCIAL ---
SS Note 1245-hotline placed.
[2024-05-10 16:00] VITALS: BP 98/66; PULSE 73; RESP 14; TEMP 36.7; O2SAT 98
--- NOTE | 2024-05-10 20:47 | PC.NURSE ---
DISCHARGE NOTE picc line was pulled by nursing staff and dressed in pants and scrub gown, placed in wheelchair. discharge packet was given to pt and friend, nursing staff reviewed with pt and instructed to call for follow up appointment scheduling in the morning, pt verbalized understanding. pt was taken down with friend in wheelchair by nurse aide to private vehicle with DC packet and personal belongings at 1909.
== END 2024-05-10 19:09 | disposition hospice, home (50) | DRG 432 ==
LOC: ER 18:22 → ICU 21:13 → MEDSURG 05-06 17:52
PROVIDERS: Emergency Medicine; Internal Medicine; Admitting Provider Student in an Organized Health Care Education/Training Program; Emergency Provider Family Medicine; PCP Family Medicine; Visit Provider Internal Medicine
DX: K70.31 Alcoholic cirrhosis of liver with ascites (principal); K76.7 Hepatorenal syndrome; D68.4 Acquired coagulation factor deficiency; K76.6 Portal hypertension; N17.9 Acute kidney failure, unspecified; N39.0 Urinary tract infection, site not specified; E87.1 Hypo-osmolality and hyponatremia; K72.10 Chronic hepatic failure without coma; F10.21 Alcohol dependence, in remission; E87.5 Hyperkalemia; K76.82 Hepatic encephalopathy; R19.7 Diarrhea, unspecified; Z51.5 Encounter for palliative care; I95.9 Hypotension, unspecified; Z75.1 Person awaiting admission to adequate facility elsewhere
CPT/HCPCS: 0241U; 36415; 36573; 36592; 49083; 71045; 80048; 80053; 80061; 80306; 80307; 81001; 82140; 82607; 82746; 83036; 83540; 83550; 83605; 83690; 83735; 84100; 84145; 84443; 85025; 85362; 85378; 85384; 85610; 85730; 86403; 87040; 87077; 87086; 87150; 87186; 87205; 93005; 93306; 94664; 96372; 96374; 96375; 96376; 97110; 97116; 97161; 97165; 97530; 97535; 99285; J0612; J1630; J1815; J2270; J2354; J2405; J2470; J2543; J2765; P9046

== ENCOUNTER 2024-05-15 17:33 | Inpatient (IN) | payer SELFPAY ==
[2024-05-15] VITALS (29 sets, daily range): BP systolic 70–108; BP diastolic 47–69; PULSE 53–123; RESP 10–71; TEMP 30–36.6; O2SAT 90–100; BMI 24.4; BMI 25.9
--- NOTE | 2024-05-15 18:10 | W.ED.ABDPA2 ---
HPI - Abdominal Pain General: Chief Complaint: Abdominal Pain Stated Complaint: Lower ABD pain Time Seen by Provider: 05/15/24 17:51 History of Present Illness: 54-year-old man with a history of alcohol abuse and alcoholic cirrhosis with ascites who presents emergency room with abdominal distention and pain. He says the pain is mid abdomen. His abdomen is still soft but quite distended. He is quite jaundiced. EMS reports he has been drinking today. He says the last time he had his abdomen drained was a week and a half ago. He does not know if he has an appointment to have it done again. No nausea or vomiting. No focal motor deficits. Related Data Previous Rx's Medication Instructions Recorded hydrocodone 5 mg-acetaminophen 325 1 tab PO Q6H PRN pain #14 tabs 05/01/24 mg tablet ondansetron 4 mg disintegrating 4 mg PO Q6H PRN nausea and 05/01/24 tablet vomiting #14 tabs amoxicillin 875 mg-potassium 1 tab PO BID #10 tabs 05/08/24 clavulanate 125 mg tablet lactulose 20 gram/30 mL oral 20 g (30 mL) PO BID #1,200 mL 05/08/24 solution midodrine 5 mg tablet 5 mg PO TID #90 tabs 05/08/24 spironolactone 25 mg tablet 12.5 mg (1/2 x 25 mg) PO DAILY #60 05/08/24 tabs folic acid 1 mg tablet 1 mg PO DAILY #60 tabs 05/10/24 rifaximin 550 mg tablet 550 mg PO BID #60 tabs 05/10/24 thiamine HCl (vitamin B1) 100 mg 100 mg PO DAILY #60 tabs 05/10/24 tablet Allergies Allergy/AdvReac Type Severity Reaction Status Date / Time meperidine [From Demerol] Allergy ALGY-Anaphy Verified 05/01/24 14:36 laxis Review of Systems Narrative: Constitutional symptoms: Negative except as documented in HPI. Skin symptoms: Negative except as documented in HPI. Eye symptoms: Negative except as documented in HPI. ENMT symptoms: Negative except as documented in HPI. Respiratory symptoms: Negative except as documented in HPI. Cardiovascular symptoms: Negative except as documented in HPI. Gastrointestinal symptoms: Negative except as documented in HPI. Genitourinary symptoms: Negative except as documented in HPI. Musculoskeletal symptoms: Negative except as documented in HPI. Neurologic symptoms: Negative except as documented in HPI. Psychiatric symptoms: Negative except as documented in HPI. Endocrine symptoms: Negative except as documented in HPI. CR[facility]ICAL ACCESS HOSPITAL ED PFSH: Medical History Cirrhosis Physical Exam Narrative: EXAM NARRATIVE: General: Alert, no acute distress. Skin: Warm, dry. Jaundice Head: Normocephalic, atraumatic. Neck: Supple, trachea midline. Eye: Extraocular movements are intact. Ears, nose, mouth and throat: mucosa moist. Cardiovascular: Regular, Normal peripheral perfusion. Respiratory: Lungs are clear to auscultation, respirations are non-labored, breath sounds are equal, Symmetrical chest wall expansion. Gastrointestinal: Soft, distended, mild tenderness mid abdomen bilaterally. Musculoskeletal: Normal ROM, no deformity. Neurological: Alert and oriented, No focal neurological deficit observed. Psychiatric: Cooperative Course Vital Signs: Vital signs: Vital Signs Temperature 97.8 F 05/15/24 17:42 Pulse Rate 62 05/15/24 19:03 Respiratory Rate 22 H 05/15/24 19:03 Blood Pressure 108/69 05/15/24 17:42 Pulse Oximetry 90 05/15/24 19:03 Oxygen Delivery Me thod Non-Rebreather 05/15/24 18:19 Oxygen Flow Rate 10 05/15/24 18:19 MDM - Abdominal Pain Medical Decision Making Medical decision making: Differential diagnosis including but not limited to and based on the above HPI, review of systems and physical exam: Pain may be just due to excessive ascites. He does not have an exam that would seem like he has SBP. Also checking alcohol level and ammonia level. CMP with bilirubin. Orders placed to evaluate differential diagnosis based on the above differential, HPI and physical exam Lab Review: Laboratory results were reviewed and interpreted by myself the emergency room physician. Patient has a negative alcohol. Sodium is 127. BUN and creatinine are elevated at 53 and 1.5. Most notably his ammonia is 195. Also INR is elevated at 2.99. With all this data he has a MELD score of 35. I reviewed the patient's medical record. Model for End-Stage Liver Disease (Combined MELD) from [employer] on 05/15/2024 All calculations should be rechecked by clinician prior to use RESULT SUMMARY: 35 points MELD 3.0 46.1 % Estimated 90-day survival INPUTS: Equation ?> 2 = MELD 3.0 (currently recommended by OPTN) Age added to the liver transplant waiting list, years ?> 1 = >=8 Sex ?> 0 = Male Creatinine ?> 1.5 mg/dL Bilirubin ?> 10 mg/dL INR ?> 3 Sodium ?> 127 mEq/L Albumin ?> 2.7 g/dL Had dialysis twice, or 24 hours of CVVHD, within a week prior to the serum creatinine test ?> 0 = No Consultation: I spoke with Dr. Campuzano who had taken care of the patient previously. The patient is DNR/DNI. He had been accepted to [facility] but decided he wanted to go home. He has an elderly who may have some dementia. There is a neighbor. Consultation: I spoke with Dr. Moscoso is on-call for the hospitalist service. He requested a CT of the chest abdomen pelvis. Also we are adding antibiotics for possible SBP and sepsis. Lactate and blood culture were ordered at this time as well. Reexamination: Patient has deteriorated quite a bit. He has drained breathing and is less responsive than he was initially. He is requiring quite a bit of oxygen. Responds only minimally. Assessment and plan: Hepatic encephalopathy Respiratory failure Cirrhosis Jaundice Coagulopathy Renal insufficiency ?Possible sepsis. Have added cultures. With him being fluid overloaded and holding on fluids right now. Lactate blood cultures ordered. Vanco and cefepime ordered. -I discussed the patient with the hospitalist on-call who is admitting the patient. - Discussed findings and plan with patient. Answered any questions. - All laboratory values were reviewed and interpreted personally by myself, the ER physician - All imaging was reviewed and interpreted personally by myself, the ER physician. - Evaluation and treatment of this problem were appropriate in the emergency setting Lab Data 05/15/24 18:05 05/15/24 18:05 Labs/Radiology: Laboratory Results WBC 11.94 10^3/uL (3.29-11.43) H 05/15/24 18:05 RBC 2.94 10^6/uL (3.85-5.65) L 05/15/24 18:05 Hgb 10.70 g/dL (11.27-16.99) L 05/15/24 18:05 Hct 32.0 % (37-53) L 05/15/24 18:05 MCV 108.8 fl (82-101) H 05/15/24 18:05 MCH 36.4 pg (27-33) H 05/15/24 18:05 MCHC 33.4 g/dL (30-55) 05/15/24 18:05 RDW 15.9 % (12.1-15.1) H 05/15/24 18:05 Plt Count 86 10^3/cmm (157-399) L 05/15/24 18:05 MPV 11.3 fL (7.4-10.4) H 05/15/24 18:05 Neut % (Auto) 95.2 % 05/15/24 18:05 Lymph % (Auto) 2.4 % 05/15/24 18:05 Runnels % (Auto) 1.2 % 05/15/24 18:05 Eos % (Auto) 0.0 % 05/15/24 18:05 Baso % (Auto) 0.2 % 05/15/24 18:05 Neut # (Auto) 11.37 10^3/uL (1.8-7.7) H 05/15/24 18:05 Lymph # (Auto) 0.3 10^3/uL (0.8-4.8) L 05/15/24 18:05 Runnels # (Auto) 0.1 10^3/uL (0.2-0.9) L 05/15/24 18:05 Eos # (Auto) 0.0 10^3/uL (0.0-0.8) 05/15/24 18:05 Baso # (Auto) 0.0 10^3/uL (0.0-0.1) 05/15/24 18:05 Nucleated RBC % (auto) 0 % 05/15/24 18:05 Nucleated RBCs # 0.0 /100WBC 05/15/24 18:05 PT 32.20 SECONDS (12.1-14.9) H 05/15/24 18:05 INR 2.99 (0.8-1.2) H 05/15/24 18:05 APTT 56.9 SECONDS (23.9-36.7) H 05/15/24 18:05 Sodium 127 mmol/L (136-145) L 05/15/24 18:05 Potassium 4.9 mmol/L (3.5-5.1) 05/15/24 18:05 Chloride 96 mmol/L (98-107) L 05/15/24 18:05 Carbon Dioxide 17 mmol/L (22-29) L 05/15/24 18:05 Anion Gap 18.9 (5-19) 05/15/24 18:05 BUN 53 mg/dL (6-20) H 05/15/24 18:05 Creatinine 1.5 mg/dL (0.7-1.2) H 05/15/24 18:05 GFR Calculation 48.6 mL/min (90-130) L 05/15/24 18:05 Glucose 169 mg/dL (65-115) H 05/15/24 18:05 Calculated Osmolality 282 mOsm/kg (285-295) L 05/15/24 18:05 Calcium 8.8 mg/dL (8.5-10.5) 05/15/24 18:05 Total Bilirubin 10.0 mg/dL (0.15-1.2) H* 05/15/24 18:05 AST 132 U/L (0-40) H 05/15/24 18:05 ALT 66 U/L (0-41) H 05/15/24 18:05 Alkaline Phosphatase 102 U/L (40-130) 05/15/24 18:05 Ammonia 195 umol/L (16-60) H 05/15/24 18:05 Total Protein 7.4 g/dL (6.6-8.7) 05/15/24 18:05 Albumin 2.7 g/dL (3.5-5.2) L 05/15/24 18:05 Globulin 4.7 g/dL (1.3-4.6) H 05/15/24 18:05 Lipase 138 U/L (13-60) H 05/15/24 18:05 Ethyl Alcohol < 10 mg/dL (0-10) 05/15/24 18:05 XR interpretation done by ED provider, pending radiology final review Discharge Plan Discharge Patient Disposition: Admitted As Inpatient Clinical Impression: Cirrhosis, Hepatic encephalopathy, Ascites, Coagulopathy, Hyperbilirubinemia Condition: Stable Coding Level of Care Code ED Pig Furnace Operator for Jaime Daniel
[2024-05-15 18:12] LABS: Basophils % 0.2 %; Lymphocytes # 0.3 10^3/uL (0.8-4.8); Lymphocytes % 2.4 %; Mean Corpuscular HGB Conc 33.4 g/dL (30-55); Mean Corpuscular Hemoglobin 36.4 pg (27-33); Mean Corpuscular Volume 108.8 fl (82-101); Mean Platelet Volume 11.3 fL (7.4-10.4); Monocytes # 0.1 10^3/uL (0.2-0.9); Monocytes % 1.2 %; Neutrophils # 11.37 10^3/uL (1.8-7.7); Neutrophils % 95.2 %; Nucleated Red Blood Cells % 0 %; Platelet Count 86 10^3/cmm (157-399); Red Blood Count 2.94 10^6/uL (3.85-5.65); Red Cell Distribution Width 15.9 % (12.1-15.1); White Blood Count 11.94 10^3/uL (3.29-11.43)
[2024-05-15 18:30] LABS: INR 2.99 (0.8-1.2)
[2024-05-15 18:31] LABS: Partial Thromboplastin Time 56.9 SECONDS (23.9-36.7)
[2024-05-15 18:35] LABS: Alanine Aminotransferase 66 U/L (0-41); Albumin Level 2.7 g/dL (3.5-5.2); Alkaline Phosphatase 102 U/L (40-130); Anion Gap 18.9 (5-19); Aspartate Amino Transferase 132 U/L (0-40); Blood Urea Nitrogen 53 mg/dL (6-20); Calcium 8.8 mg/dL (8.5-10.5); Carbon Dioxide 17 mmol/L (22-29); Chloride 96 mmol/L (98-107); Creatinine Clr Calc Pharmacy 62.3481; Globulin 4.7 g/dL (1.3-4.6); Glomerular Filtration Rate 48.6 mL/min (90-130); Glucose 169 mg/dL (65-115); Osmolality Calculated 282 mOsm/kg (285-295); Potassium 4.9 mmol/L (3.5-5.1); Sodium 127 mmol/L (136-145); Total Protein 7.4 g/dL (6.6-8.7)
[2024-05-15 18:36] LABS: Alcohol Level < 10 mg/dL (0-10)
[2024-05-15 18:37] LABS: Ammonia 195 umol/L (16-60)
[2024-05-15 18:55] LABS: Lipase 138 U/L (13-60)
[2024-05-15 19:05] LABS: Slide Review Slide Review Perform
--- NOTE | 2024-05-15 19:17 | XRR_ITS ---
PROCEDURE INFORMATION: Exam: XR Chest Exam date and time: 05/15/2024 7:26 PM Age: 54 years old Clinical indication: Shortness of breath TECHNIQUE: Imaging protocol: Radiologic exam of the chest. Views: 1 view. COMPARISON: CR XR chest 1V portable [id number] 05/04/2024 12:47 PM FINDINGS: Tubes, catheters and devices: The right upper extremity PICC has been removed. Lungs: Decreased inspiration with left lower lobe and left lingular atelectasis versus pneumonia. Pleural spaces: Decrease in size of a small left pleural effusion. No pneumothorax. Heart/Mediastinum: The cardiac silhouette and mediastinal contours are unremarkable. Bones/joints: Unremarkable for age. XR/XR chest 1V portable [id number] IMPRESSION: 1. Decreased inspiration with left lower lobe and left lingular atelectasis versus pneumonia. Impression. Last. Recommend followup chest imaging to insure resolution of these findings. 2. Decrease in size of a small left pleural effusion. 3. Incidental/nonacute findings are listed in the report.
--- NOTE | 2024-05-15 19:18 | CTR_ITS ---
PROCEDURE INFORMATION: Exam: CT Chest Without Contrast; Diagnostic Exam date and time: 05/15/2024 8:34 PM Age: 54 years old Clinical indication: Bloating; Shortness of breath; Additional info: Sepsis. TECHNIQUE: Imaging protocol: Diagnostic computed tomography of the chest without contrast. Sagittal and coronal reformatted images were created and reviewed. Radiation optimization: All CT scans at this facility use at least one of these dose optimization techniques: automated exposure control; mA and/or kV adjustment per patient size (includes targeted exams where dose is matched to clinical indication); or iterative reconstruction. COMPARISON: CR (CHEST, ) 05/15/2024 7:26 PM RADIATION DOSE METRICS: Total DLP (mGy-cm): 1190 FINDINGS: Limitations: Evaluation of the mediastinum and vasculature is limited without intravenous contrast. Trachea: Tracheobronchial structures are patent. Lungs: Pleural-based focus of ground-glass opacification in the lateral right upper lobe. Decreased inspiration. Increasing bilateral lower lobe and left lingular airspace disease with air bronchograms suspicious for atelectasis and/or pneumonia. Pleural spaces: Stable small/moderate left pleural effusion. No pneumothorax. Heart: Stable moderate enlargement of the heart. Coronary arteries: Stable mild atherosclerotic calcification in the coronary arteries. Esophagus: The esophagus is unremarkable. Mediastinal space: No mediastinal hematoma. No pneumomediastinum. Lymph nodes: No lymphadenopathy. Calcified lymph nodes in the left hilum. Vasculature: No evidence for aortic aneurysm. Bones/joints: Mild degenerative changes in the visualized spine. Patient has had a previous left lateral fusion at T11 through L1. No evidence for loosening of the surgical hardware. Soft tissues: No acute abnormality in the extrathoracic soft tissues. PROCEDURE INFORMATION: Exam: CT Abdomen And Pelvis Without Contrast Exam date and time: 05/15/2024 8:34 PM Age: 54 years old Clinical indication: Bloating; Shortness of breath; Additional info: Sepsis. TECHNIQUE: Imaging protocol: Computed tomography of the abdomen and pelvis without contrast. Sagittal and coronal reformatted images were created and reviewed. Radiation optimization: All CT scans at this facility use at least one of these dose optimization techniques: automated exposure control; mA and/or kV adjustment per patient size (includes targeted exams where dose is matched to clinical indication); or iterative reconstruction. COMPARISON: CT abdomen pelvis w con* [id number] 05/01/2024 3:38 PM RADIATION DOSE METRICS: Total DLP (mGy-cm): 1190 FINDINGS: Limitations: Evaluation of solid organs and vasculature is limited without intravenous contrast. Liver: Stable nodular contour of the liver. Multiple calcified granulomas in the liver are stable. Gallbladder and biliary ducts: Interval development of density in the gallbladder, likely due to vicarious excretion of contrast. No gallbladder wall thickening. No biliary ductal dilatation. Pancreas: The pancreas is unremarkable. No pancreatic ductal dilatation. Spleen: The spleen is unremarkable. Adrenal glands: The right and left adrenal glands are unremarkable. Kidneys and ureters: The right and left kidneys are unremarkable. The right and left ureters are unremarkable. Stomach and bowel: No acute abnormality in the stomach, small bowel, or colon. Appendix: Appendix not definitely visualized. No inflammatory changes in the pericecal region however. Intraperitoneal space: Large volume ascites/mesenteric edema, mildly increased compared with the previous study. No free intraperitoneal air. No loculated fluid collections to suggest an abscess. Vasculature: Stable small caliber varices. No evidence for aortic aneurysm. Lymph nodes: No lymphadenopathy. Urinary bladder: The bladder is decompressed by a Moreno catheter. Reproductive: Nonspecific parenchymal calcifications in the prostate gland. Bones/joints: Degenerative changes in the spine, sacroiliac joints, and hips. Patient has had a previous left lateral fusion at T11 through L1. No evidence for loosening of the surgical hardware. Soft tissues: Stable mild body wall edema. CT/[place] [id number] IMPRESSION: 1. Pleural-based focus of ground-glass opacification in the lateral right upper lobe. The differential diagnosis includes an area of pneumonitis versus atypical pneumonia versus a pulmonary infarct. Recommend clinical correlation. CT angiogram of the chest or V/Q scan recommended if there is clinical concern for pulmonary embolism. 2. Decreased inspiration. Increasing bilateral lower lobe and left lingular airspace disease with air bronchograms suspicious for atelectasis and/or pneumonia. Recommend followup chest imaging to insure resolution of these findings. 3. Stable small/moderate left pleural effusion. 4. Incidental/nonacute findings are listed in the report. IMPRESSION: 1. Stable cirrhotic changes in the liver. Stable small caliber varices. Findings concerning for worsening portal hypertension however with mild increase of large volume ascites. 2. Stable mild body wall edema. 3. Incidental/nonacute findings are listed in the report.
[2024-05-15 19:53] LABS: Lactic Sepsis W/Reflex 3.2 mmol/L (0.5-2.2)
[2024-05-15 20:27] LABS: ABG PCO2 64.6 mmHg (35-45); ABG PH Result 7.13 (7.35-7.45); Base Excess ABG -8.2 mmol/L (-2.0-2.0); Blood Gas Sample Site Brachial, right; Blood Gas Sample Type Arterial; Carboxyhemoglobin 1.9 %THgb (0.4-20.1); HCO3 ABG 21.3 mmol/L (22-26); HGB O2 Sat 90.9 % (95-100); Ionized Calcium Level - ABG 1.3 mmol/L (1.1-1.4); Oxygen Device NRB; Oxygen Saturation ABG 93.6; PO2 ABG 88.8 mmHg (80.0-100.0); Potassium Level - ABG 4.6 mmol/L (3.5-5.0); Total Hemoglobin 9.8 g/dL (14-18)
[2024-05-15] MEDS: LORazepam 2 mg/mL INJ 1 mL 1 MG IVP (20:28)
[2024-05-15] MEDS: FUROsemide 10 mg/mL SDV 10mL 80 MG IVP (20:28)
[2024-05-15] MEDS: cefepime 1,000 MG in sodium chloride 0.9% (plus) 50 ML 100 MG IV (20:29)
--- NOTE | 2024-05-15 21:02 | PHA.VACGOAL ---
Vancomycin Goal - Goal Vancomycin Goal:: 15-20 mg/L Vancomycin Indication:: Other (SUSPECTED SEPSIS) - Therapy Current therapy:: Cefepime Day of therpy:: Day 1 of [] Actual body weight (kg): 180 lb - Data Labs: WBC 11.94 10^3/uL (3.29-11.43) H 05/15/24 18:05 RBC 2.94 10^6/uL (3.85-5.65) L 05/15/24 18:05 Hgb 10.70 g/dL (11.27-16.99) L 05/15/24 18:05 Hct 32.0 % (37-53) L 05/15/24 18:05 MCV 108.8 fl (82-101) H 05/15/24 18:05 MCH 36.4 pg (27-33) H 05/15/24 18:05 MCHC 33.4 g/dL (30-55) 05/15/24 18:05 RDW 15.9 % (12.1-15.1) H 05/15/24 18:05 Sodium 127 mmol/L (136-145) L 05/15/24 18:05 Potassium 4.9 mmol/L (3.5-5.1) 05/15/24 18:05 Chloride 96 mmol/L (98-107) L 05/15/24 18:05 Carbon Dioxide 17 mmol/L (22-29) L 05/15/24 18:05 Anion Gap 18.9 (5-19) 05/15/24 18:05 BUN 53 mg/dL (6-20) H 05/15/24 18:05 Creatinine 1.5 mg/dL (0.7-1.2) H 05/15/24 18:05 GFR Calculation 48.6 mL/min (90-130) L 05/15/24 18:05 Last dialysis session:: N/A Treatment plan:: new consult Regimen:: LOADING DOSE OF 2000 MG X 1 GIVEN DUE TO INDICATION OF POSSIBLE SEPSIS MAINTENANCE DOSE OF 1000 MG Q12H BASED ON DOSING PROTOCOL. Follow up:: WILL CONTINUE TO MONITOR AND FOLLOW UP DAILY
--- NOTE | 2024-05-15 21:12 | P.HP_ITS ---
Providers/Chief Complaint 2 Admitting Physician: Fortino Moscoso MD Primary Care Provider: Beni Kidd MD Chief Complaint: Lower ABD pain History of Present Illness Donte Saini is a 54 year old male with past medical history of end-stage alcoholic liver cirrhosis, recent admission to the hospital for K[facility]HA[facility] with concerns for hepatorenal syndrome, massive ascites for which he underwent more than 7 L of paracentesis presents back to the ER today via EMS for altered mental status. Hospital service was consulted with concerns for altered mental status in setting of hepatic encephalopathy. I requested CT abdomen pelvis chest without contrast along with stat ABG, IV antibiotics with concerns for SBP. As per the ER report patient was significantly agitated for which she received 1 mg of IV Ativan. When seen in the ICU patient was somnolent, not responding to noxious stimuli, heart rate of 50 to 70 bpm with a blood pressure of 98 systolic, saturating 100% on BiPAP 60% FiO2 with PEEP of 8. On review of ABG done in the ER his pH was 7.13 with pCO2 of 64, pO2 of 88 on 15 L nonrebreather. Review of Systems 2 General: Reports: ROS unobtainable due to mental status Medications/Allergies Home Medications Medication Instructions Recorded Confirmed Last Taken Type hydrocodone 5 mg-acetaminophen 325 1 tab PO Q6H PRN pain #14 tabs 05/01/24 05/16/24 Unknown Rx mg tablet ondansetron 4 mg disintegrating 4 mg PO Q6H PRN nausea and 05/01/24 05/16/24 Unknown Rx tablet vomiting #14 tabs amoxicillin 875 mg-potassium 1 tab PO BID #10 tabs 05/08/24 05/16/24 Unknown Rx clavulanate 125 mg tablet lactulose 20 gram/30 mL oral 20 g (30 mL) PO BID #1,200 mL 05/08/24 05/16/24 Unknown Rx solution midodrine 5 mg tablet 5 mg PO TID #90 tabs 05/08/24 05/16/24 Unknown Rx spironolactone 25 mg tablet 12.5 mg (1/2 x 25 mg) PO DAILY #60 05/08/24 05/16/24 Unknown Rx tabs folic acid 1 mg tablet 1 mg PO DAILY #60 tabs 05/10/24 05/16/24 Unknown Rx rifaximin 550 mg tablet 550 mg PO BID #60 tabs 05/10/24 05/16/24 Unknown Rx thiamine HCl (vitamin B1) 100 mg 100 mg PO DAILY #60 tabs 05/10/24 05/16/24 Unknown Rx tablet Allergies Allergy/AdvReac Type Severity Reaction Status Date / Time meperidine [From Demerol] Allergy ALGY-Anaphy Verified 05/01/24 14:36 laxis PFSH Acute 2 PFSH: Medical History (Updated 05/15/24 @ 21:19 by Fortino Moscoso MD) Hyponatremia Acute kidney failure Coagulopathy Hepatic encephalopathy Portal hypertension Ascites Hyperkalemia Hepatorenal syndrome Cirrhosis Social History (Updated 05/15/24 @ 21:20 by Fortino Moscoso MD) Smoking and tobacco/nicotine status: former use of tobacco/nicotine Alcohol intake: former Caregiver/support person: Yes Lives independently: Yes Household members: spouse Housing: House Marital status: Vitals/I&O/Wt Last Vital Signs Temp 97.8 F 05/15/24 17:42 Pulse 53 L 05/15/24 20:59 Resp 20 H 05/15/24 20:00 BP 80/50 05/15/24 20:00 Pulse Ox 100 05/15/24 20:59 O2 Del Method Non-Rebreather 05/15/24 18:19 O2 Flow Rate 10 05/15/24 18:19 FiO2 60 05/15/24 20:59 Weight last 48 hrs Weight 81.647 kg Physical Exam 2 Narrative: General: Somnolent, GCS E1 M1 V1 on BiPAP ventilation saturating 100% HEENT: PERRLA, pupils bilaterally equal and reactive Chest: Normal vesicular breath sounds, no added sounds, equal good air entry bilaterally CVS: S1-S2 regular, no murmurs, no tachycardia, no gallops, no rubs Abdomen: Soft, nontender, no organomegaly, bowel sounds present Neuro: Difficult to ascertain given poor GCS Urinary Catheter Management: Moreno: Cath Placed During This Visit: yes Urinary Catheter Date of Insertion: 05/15/24 Urinary Catheter Time of Insertion: 20:00 Data 05/15/24 21:20 05/15/24 21:20 Micro: Microbiology 05/15/24 20:30 Blood Culture - Preliminary Blood SPECIMEN COLLECTED 05/15/24 20:17 Blood Culture - Preliminary Blood SPECIMEN COLLECTED A&P Assessment and plan (1) Hepatic encephalopathy: (2) Acute kidney failure: (3) Hypercapnia: (4) Metabolic acidosis: (5) Hyponatremia: (6) Cirrhosis: (7) Hyperbilirubinemia: (8) Ascites: Plan 54-year-old with past history of advanced alcoholic liver cirrhosis who was recently in the hospital for hepatorenal syndrome leading to acute kidney injury present to the hospital today and altered mental status. Altered mental status: Most likely in setting of hepatic encephalopathy along with concerns for hypercapnia. ABG appreciated for metabolic acidosis with a pH of 7.1, pCO2 of 62 on 15 L nonrebreather. Will try to avoid putting in G-tube with concerns for esophageal varices. For now we will start patient on rectal lactulose every 6 hour. Keep n.p.o. Repeat ABG while being on BiPAP. As patient is maintaining saturation for now we will try to avoid using reversal agent. If patient does not improve or have desaturation can plan to use the reversal agent. Concerns for SBP with leukocytosis, recent paracentesis. For now empirically start patient on IV vancomycin and IV cefepime. Dose renally. Will plan for diagnostic and therapeutic paracentesis in a.m. Check blood culture, lactate, procalcitonin,. MRSA swab negative recently. Given patient significantly sick for now we will continue with vancomycin. CT abdomen pelvis with chest done. Results awaited. Alcohol level appreciated, check urine drug screen Will plan for CT head once patient is more medically stable. Metabolic acidosis: Most likely in setting of acute kidney injury along with decompensated respiratory acidosis. BiPAP ventilation as above. Will repeat ABG in few hours while being on BiPAP. 100 mEq of sodium bicarb stat followed by sodium bicarb drip at 50 cc an hour. Will try to avoid going higher on the rate to avoid fluid overload. Repeat stat CBC, CMP. Keep mean artery pressure 65. Midodrine 5 mg 3 times daily if possible otherwise we will start on Levophed drip. Albumin every 8 hourly. Liver cirrhosis: Alcoholic in nature Decompensated. MELD score of more than 31 with expected 52% 3-month mortality Protonix IV twice daily, Zofran as needed. Lactulose as above. Acute kidney injury: Recently admitted with hepatorenal syndrome. For now we will continue to monitor. If continues to worsen we will start patient on octreotide. Monitor electrolytes. Hyponatremia: Continue to monitor every 8 hourly for now. CODE STATUS: Recently patient made his wishes of CODE STATUS of DNR/DNI on recent admission. For now we will continue with DNR/DNI. Will discuss further with patient's person to notify them MS Joseph regarding significantly poor prognosis with high chances of mortality with possible transition to hospice/comfort care. Protonix for PUD prophylaxis Heparin for DVT prophylaxis Attestations 2 Medical Necessity Statement*: Admission for more than 2 midnights for management of hepatic encephalopathy, metabolic acidosis in setting of acute kidney injury, lactic acidosis, hypercapnia in a patient with end-stage alcoholic liver cirrhosis Critical Care Time: The high probability of a clinically significant, sudden or life threatening deterioration of the patient's [GI, respiratory, renal, neurological] system(s) required my full and direct attention, intervention and personal management. The critical care time is as shown. This time is in addition to time spent performing any reported procedures but includes the following: [x] Data and vital sign review and interpretation [x] Patient assessment, examination and intervention [x] Documentation [x] Medication orders and management Critical Care Time (min): 80 Coding Level of Care Code Critical Care >/= 30 minutes Critical care time (in minutes): 80 The high probability of a clinically significant, sudden or life threatening deterioration, as referenced in this documentation, required my full and direct attention, intervention and personal management. The critical care time shown is in addition to time spent performing any reported separately billable procedures and includes the following: [x] Data and vital sign review and interpretation [x ] Patient assessment, examination and intervention [x] Medication orders and management [x] Patient/Family updates as able [x] Care Coordination and Documentation. Diagnoses Hepatic encephalopathy K76.82 Acute kidney failure N17.9 Hypercapnia R06.89 Metabolic acidosis E87.20 Hyponatremia E87.1 Cirrhosis K74.60 Hyperbilirubinemia E80.6 Ascites R18.8
[2024-05-15 21:13] LABS: ABG PH Result 7.29 (7.35-7.45); Arterial Blood Gas Hematocrit 27.1 % (42-52); Blood Gas Allen Test Pos; Blood Gas Sample Site Radial, right; Blood Gas Sample Type Arterial; HCO3 ABG 31.6 mmol/L (22-26); Oxygen Device BIPAP; PO2 ABG 86.7 mmHg (80.0-100.0); PO2 FiO2 Ratio Arterial Blood 144
[2024-05-15 21:14] LABS: ABG PCO2 66.4 mmHg (35-45)
[2024-05-15 21:22] LABS: Reflex Lactate Order REFLEX LACTIC ORDERD
[2024-05-15] MEDS: sodium bicarbonate 8.4% 1 mEq/mL 50mL Syr 100 MEQ (21:38)
[2024-05-15] MEDS: lactulose oral liq 20 gm/30 mL UDC 200 GM PR (21:38)
[2024-05-15] MEDS: albumin 25 G/100 ML BAG 60 G IV (21:39)
[2024-05-15 21:41] LABS: Basophils % 0.1 %; Hematocrit 25.5 % (37-53); Lymphocytes # 0.3 10^3/uL (0.8-4.8); Lymphocytes % 1.8 %; Mean Corpuscular HGB Conc 34.5 g/dL (30-55); Mean Corpuscular Hemoglobin 35.6 pg (27-33); Mean Corpuscular Volume 103.2 fl (82-101); Monocytes # 0.1 10^3/uL (0.2-0.9); Monocytes % 0.6 %; Neutrophils % 96.3 %; Nucleated Red Blood Cells % 0 %; Platelet Count 118 10^3/cmm (157-399); Red Blood Count 2.47 10^6/uL (3.85-5.65); Red Cell Distribution Width 15.9 % (12.1-15.1); White Blood Count 14.22 10^3/uL (3.29-11.43)
[2024-05-15] MEDS: sodium bicarbonate 50 MEQ in sodium chloride 0.45% 1,000 ML 100 MEQ IV (21:44)
[2024-05-15 21:58] LABS: Alanine Aminotransferase 66 U/L (0-41); Albumin Level 2.7 g/dL (3.5-5.2); Alkaline Phosphatase 103 U/L (40-130); Blood Urea Nitrogen 53 mg/dL (6-20); Calcium 8.5 mg/dL (8.5-10.5); Carbon Dioxide 24 mmol/L (22-29); Creatinine Clr Calc Pharmacy 55.0131; Globulin 4.3 g/dL (1.3-4.6); Glomerular Filtration Rate 42.1 mL/min (90-130); Glucose 178 mg/dL (65-115)
[2024-05-15 22:02] LABS: Lactic Acid level (Lactate) 3.7 mmol/L (0.5-2.2)
[2024-05-15 22:04] LABS: Procalcitonin 0.25 ng/mL (0-0.5)
[2024-05-15 22:18] LABS: Anion Gap 16.2 (5-19); Chloride 96 mmol/L (98-107); Osmolality Calculated 291 mOsm/kg (285-295); Potassium 5.2 mmol/L (3.5-5.1); Sodium 131 mmol/L (136-145)
[2024-05-15] MEDS: vancomycin 2,000 MG/400 ML PIGGYBACK 200 MG IV (23:10)
[2024-05-15] MEDS: heparin 5,000 unit/mL INJ 1 mL 5000 UNIT SUBCUT (23:11)
[2024-05-15] MEDS: pantoprazole 40 mg SDV IVP (23:11)
--- NOTE | 2024-05-16 00:04 | P.PNCC_ITS ---
Critical Care Event Note Patient's Kristin and friend Opal Michael came to the bedside late this evening after being updated about patient's critical condition. At the time of this note, patient's temperature is 86 Fahrenheit, blood pressure 85/55, heart rate of 63, he is on BiPAP with 100% FiO2, he does not wake up to calling name or any painful stimulus. He is obtunded. Discussed with him patient's grave prognosis. patient has alcohol liver related liver cirrhosis. His MELD score on a recent admission was at 36-40 correlating with a 52%-70% mortality. He was recently admitted here between May 04 to May 10, 2024 for decompensated liver cirrhosis, hepatorenal syndrome, hepatic encephalopathy, portal hypertension and multiple electrolyte abnormalities. His blood cultures were recently positive for Prevotella and coag negative staph. He presents today in a much worse condition. Notes from last admission were reviewed extensively. On May 01, 2024 patient was seen at [facility] at which point he had stated that he did not wish to take any treatment for his liver failure and elected to return home to take care of his elderly . On admission here until May 10, 2024 his MELD score worsened to 40 with a 70% mortality risk. Patient had expressed his wishes to proceed with hospice care both to the admitting ER physician at that time and to the hospitalist team. Hospice services were arranged at home via [facility]. He had been able to express his wishes clearly to the care team at the time and had changed his CODE STATUS to allow natural and elected for hospice services at home. Discussed with his and friend that in knowing patient's most recently expressed wishes, it appears comfort care may be the most appropriate way forward to honor his last known wishes since there appears to be no path forward to a meaningful recovery at this time. Patient is highly likely to pass and is currently being kept alive with BiPAP and IV medications, which appears to be against his stated wishes. His states that they have discussed this situation in the past and each time his wishes have been to be made comfortable when the time comes. In keeping with above, patient is being transitioned to comfort care measures only. Critical Care Time Code activated: No Critical Care Time (min): 35 Coding Level of Care Code Acute Code for Chg Fwd
[2024-05-16 00:17] LABS: Aspartate Amino Transferase 134 U/L (0-40)
[2024-05-16] MEDS: morphine 4 mg/mL SDV 1 mL IVP ×5 (00:24→14:25)
--- NOTE | 2024-05-16 01:30 | PC.NURSE ---
Temperature of 86 noted shortly after arrival. Bearhugger applied.
--- NOTE | 2024-05-16 01:42 | PC.NURSE ---
Addendum entered by DERIK Connelly 05/16/24 01:54: In addition to orders for 100meq sodium bicarb IVP now shortly upon patient arrival, Dr. Moscoso also ordered stat ABG, 50mL bicarb drip, and levophed if needed to maintain MAP greater than or equal to 65. No NG or OG tube to be inserted due o Hx of esophageal varices. Original Note: Patient arrived with ER nurse from CT aprox. 2044. Patient displaying agonal respirations, unresponsive, mottled appearance, fixed and unreactive pupils, and generalized jaundice. Bipap applied and Dr. Moscoso notifed and came to bedside. Dr. Moscoso ordered 100meq sodium bicarb IVP now. Patient's family contacted shortly after. and family friend at bedside discussed plan of care with Dr. Altamirano and ultimately agreeable to transition to comfort care. At 00:10, Bipap removed, running medications discontinued, 2L NC applied for comfort.
--- NOTE | 2024-05-16 01:57 | PC.NURSE ---
There are duplicate orders in the MAR for sodium bicarb 8.4% IVP. The over-ride entry was scanned and administered to patient, the additional dose timed for 21:30 should have been linked to the first order, but no option was available. Only one dose of 100meq was given.
--- NOTE | 2024-05-16 08:23 | PC.PHAR ---
Spoke to Pharmacy to verify prescriptions . They stated they don't have any insurance information and Patient never picked up medications.
[2024-05-16 09:01] VITALS: RESP 14
[2024-05-16 10:00] VITALS: BMI 26.2
--- NOTE | 2024-05-16 10:33 | PC.CHAP ---
Pastoral Care Encounter/Spiritual Assessment Type of Contact [] Declined quality control technician visit [] Patient/Family/Request visit [] Outpatient visit [] Follow-up visit [] Physician referral [] Code/Alert [] Routine visit [] Staff referral [] Actively dying [x] Patient sleeping [] Family support [] [] Out of room [] Palliative care [] [] Receiving care in room [] Pre-surgical visit [] Trauma [] Long length of stay [] ICU visit [] Other: Relational/Emotional Strength [] Patient feels connected with others/family/visitors/staff [] Distress [] Loneliness/isolation [] Abandonment Spirituality of Patient [] Person of Shanae [] Attends Jain of their Shanae [] Believes in Prayer [] Reads Bible or Faith materials [] There are Spiritual issues to be addressed Pest Control Worker Helper Interventions [] Prayer [] Active listening [] Non-anxious presence [] Spiritual/emotional support [] Crisis/trauma care [] Spiritual counseling [] Bereavement support [] Provided bereavement packet [] Provided Bible/devotional materials [] Provided toy/stuffed animal, coloring book to patient or family member [] Provided Communion [] Anointing/Rescue [] Salvation [] Completed spiritual assessment [] Other: Impact on Illness or Injury [] Angry [] Fearful [] Anxious [] Often cries [] Exhaustion [] Unable to work [] Unable to attend zoroastrian [] Unable to walk/stand [] Unable to read [] Unable to drive [] Unable to eat/drink [] Unable to sleep [] Unable to be with family [] Patient intubated [] Other: Summary Time spent with patient
[2024-05-16 11:42] VITALS: O2SAT 68
[2024-05-16] MEDS: lanolin oint 7 gm 1 APPLIC TOPICAL (12:11)
--- NOTE | 2024-05-16 13:55 | P.PN_ITS ---
Subjective 2 Subjective: Appreciate overnight events. Patient was transitioned to comfort care measures. On examination laying operatively in bed, having few episodes of labored abdominal breathing. Vitals/I&O/Wt Last Vital Signs Temp 86 F L 05/15/24 20:49 Pulse 63 05/15/24 23:57 Resp 14 05/16/24 09:01 BP 85/55 05/15/24 22:20 Pulse Ox 68 L 05/16/24 11:42 O2 Del Method Room Air 05/16/24 11:42 O2 Flow Rate 10 05/15/24 20:49 FiO2 60 05/15/24 23:57 05/15/24 05/16/24 05/16/24 22:59 06:59 14:59 Intake Total 1223.333 / 1223.333 Balance 1223.333 / 1223.333 Weight last 48 hrs Weight 87.815 kg Weight 87 kg Weight 81.647 kg Physical Exam 2 Narrative: Deferred given comfort care measures status. Urinary Catheter Management: Moreno: Cath Placed During This Visit: yes Urinary Catheter Date of Insertion: 05/15/24 Urinary Catheter Time of Insertion: 20:00 Data 05/15/24 21:20 05/15/24 21:20 Micro: Microbiology 05/15/24 20:30 Blood Culture - Preliminary Blood SPECIMEN COLLECTED 05/15/24 20:17 Blood Culture - Preliminary Blood SPECIMEN COLLECTED A&P Assessment and plan (1) Hepatic encephalopathy: (2) Acute kidney failure: (3) Hypercapnia: (4) Metabolic acidosis: (5) Hyponatremia: (6) Cirrhosis: (7) Hyperbilirubinemia: (8) Ascites: Plan 54-year-old with past history of advanced alcoholic liver cirrhosis who was recently in the hospital for hepatorenal syndrome leading to acute kidney injury present to the hospital today and altered mental status. Altered mental status: Most likely in setting of hepatic encephalopathy along with concerns for hypercapnia. ABG appreciated for metabolic acidosis with a pH of 7.1, pCO2 of 62 on 15 L nonrebreather. Will try to avoid putting in G-tube with concerns for esophageal varices. For now we will start patient on rectal lactulose every 6 hour. Keep n.p.o. Repeat ABG while being on BiPAP. As patient is maintaining saturation for now we will try to avoid using reversal agent. If patient does not improve or have desaturation can plan to use the reversal agent. Concerns for SBP with leukocytosis, recent paracentesis. For now empirically start patient on IV vancomycin and IV cefepime. Dose renally. Will plan for diagnostic and therapeutic paracentesis in a.m. Check blood culture, lactate, procalcitonin,. MRSA swab negative recently. Given patient significantly sick for now we will continue with vancomycin. CT abdomen pelvis with chest done. Results awaited. Alcohol level appreciated, check urine drug screen Will plan for CT head once patient is more medically stable. Metabolic acidosis: Most likely in setting of acute kidney injury along with decompensated respiratory acidosis. BiPAP ventilation as above. Will repeat ABG in few hours while being on BiPAP. 100 mEq of sodium bicarb stat followed by sodium bicarb drip at 50 cc an hour. Will try to avoid going higher on the rate to avoid fluid overload. Repeat stat CBC, CMP. Keep mean artery pressure 65. Midodrine 5 mg 3 times daily if possible otherwise we will start on Levophed drip. Albumin every 8 hourly. Liver cirrhosis: Alcoholic in nature Decompensated. MELD score of more than 31 with expected 52% 3-month mortality Protonix IV twice daily, Zofran as needed. Lactulose as above. Acute kidney injury: Recently admitted with hepatorenal syndrome. For now we will continue to monitor. If continues to worsen we will start patient on octreotide. Monitor electrolytes. Hyponatremia: Continue to monitor every 8 hourly for now. CODE STATUS: Recently patient made his wishes of CODE STATUS of DNR/DNI on recent admission. For now we will continue with DNR/DNI. Will discuss further with patient's person to notify them MS Joseph regarding significantly poor prognosis with high chances of mortality with possible transition to hospice/comfort care. Protonix for PUD prophylaxis Heparin for DVT prophylaxis Transition to comfort care status on 05/15 night after discussion with patient's family. Continue with treatment as per comfort care measures. Ativan and morphine as needed for air hunger and discomfort. Monitor vitals as per protocol. Case management alerted for possible transition to SNF with hospice. Attestations 2 Medical Necessity Statement*: Requires further hospitalization for comfort care measures while comfortable and safe discharge planning is sought Diagnoses Hepatic encephalopathy K76.82 Acute kidney failure N17.9 Hypercapnia R06.89 Metabolic acidosis E87.20 Hyponatremia E87.1 Cirrhosis K74.60 Hyperbilirubinemia E80.6 Ascites R18.8
[2024-05-16 14:25] VITALS: RESP 14
--- NOTE | 2024-05-16 15:21 | PC.NURSE ---
Pt noted without HR, respirations and pupils are fixed at 1520.
--- NOTE | 2024-05-16 15:28 | PC.NURSE ---
Opal Michael and Dr. Moscoso notified of .
--- NOTE | 2024-05-16 15:46 | PC.NURSE ---
MTS called at 1543 by roundhouse worker, June Sapp RN
== END 2024-05-16 16:00 | disposition expired | DRG 442 ==
LOC: ER 19:12 → ICU 20:51 → MEDSURG 05-16 04:26
PROVIDERS: Admitting Provider Student in an Organized Health Care Education/Training Program; Emergency Provider Emergency Medicine; PCP Family Medicine; Visit Provider Student in an Organized Health Care Education/Training Program
DX: K76.82 Hepatic encephalopathy (principal); E87.1 Hypo-osmolality and hyponatremia; N17.9 Acute kidney failure, unspecified; E87.29 Other acidosis; K70.31 Alcoholic cirrhosis of liver with ascites; R06.89 Other abnormalities of breathing; Z66 Do not resuscitate; Z51.5 Encounter for palliative care; Z87.891 Personal history of nicotine dependence
CPT/HCPCS: 36415; 36600; 51702; 71045; 71250; 74176; 80051; 80053; 80307; 82140; 82330; 82803; 82805; 83605; 83690; 84145; 85025; 85610; 85730; 87040; 94664; 96365; 96366; 96367; 96372; 96375; 99285; J0692; J1644; J1940; J2060; J2270; J2470; J3372; P9046